=== PATIENT | female | born 1950 | race Caucasian/White ===

== ENCOUNTER 2021-03-16 13:42 | Inpatient (IN) | payer MEDICARE ==
[~2021-03-16] VITALS: Ht 162.6 cm; Wt 141.7 kg
--- NOTE | 2021-03-16 13:51 | PHYS DOC ---
General Adult HPI: HPI: Patient is a 70-year-old female presenting via EMS for need of temporary HD catheter placement. Little is known about patient other than [facility] and in critical condition. Per EMS report, patient has had complicated recent medical history significant for COVID-19 infection 35 days ago, subsequent pneumonia and respiratory failure requiring trach and PEG tube placements, and ongoing septic shock due to pneumonia being treated for meropenem and Zyvox daily with question for cryptococcal source previously being treated by amphotericin? Ultimately, patient transported to our facility for inpatient admission for placement of temporary HD catheter due to worsening kidney function in last few days. She is currently on Levophed and outlying facility could not place temporary HD catheter while on this medication. Patient on Precedex and Levophed drips on arrival. She is awake but not oriented to person place or time which is baseline for her. Review of Systems: Review of Systems: Unable to obtain due to current mentation in fact that patient has trach in place Heart Score: C/O Chest Pain: N/A HEART Score for Chest Pain: HEART Score for Chest Pain Response (Comments) Value History Highly Suspicious 2 ECG Nonspecific Repolarizatio 1 Age > 65 2 Risk Factors >3 Risk Factors or Hx CAD 2 Troponin < Normal Limit 0 Total 7 Risk Factors: Risk Factors: DM, Current or recent (<one month) smoker, HTN, HLP, family histo ry of CAD, obesity. Risk Scores: Score 0 - 3: 2.5% MACE over next 6 weeks - Discharge Home Score 4 - 6: 20.3% MACE over next 6 weeks - Admit for Clinical Observation Score 7 - 10: 72.7% MACE over next 6 weeks - Early Invasive Strategies Physical Exam: PE: Constitutional: Age-appropriate appearing in critical condition, GCS 9 (e4, v2, m5) HENT: Normocephalic, atraumatic, bilateral external ears normal, oropharynx dry, no oral exudates, poor dentition, nose normal. Eyes: PERRLA, EOMI, exotropia of left eye, conjunctiva normal, no discharge. Neck: Normal range of motion, no tenderness, supple, no stridor. Well-appearing trach present and sutured in adequate position Cardiovascular: Heart rate regular, sinus rhythm, no obvious murmurs rubs or gallops Lungs & Thorax: Mechanical breath sounds, increased work of breathing, patient breathing over attached ventilator and hypoxic on 100% FI O2 Abdomen: Bowel sounds normal, soft, no tenderness, no masses, no pulsatile masses. PEG tube present in adequate position and well-appearing, nonsurgical abdomen, no peritoneal signs. Stephens catheter present Skin: Warm, dry, no erythema, no rash. Back: No tenderness, no CVA tenderness. Extremities: No tenderness, no cyanosis, no clubbing, ROM intact, 1+ pitting edema bilateral lower extremities Neurologic: Alert, grossly normal motor & sensory function, no obvious focal deficits noted. Patient unable to follow formal NIH stroke scale Psychologic: Unable to fully assess due to current respiratory distress Current Patient Data: Labs: Laboratory Tests Test 03/16/21 16:11 03/16/21 20:02 03/17/21 06:30 03/17/21 07:10 Urine Collection Type Unknown Urine Color Yellow Urine Clarity Cloudy Urine pH 5.5 Urine Specific [place] 1.020 Urine Protein 100 mg/dL Urine Glucose (UA) Negative mg/dL Urine Ketones (Stick) Negative mg/dL Urine Blood Large Urine Nitrite Negative Urine Bilirubin Negative Urine Urobilinogen Dipstick 0.2 mg/dL Urine Leukocyte Esterase Moderate Urine RBC 11-20 /HPF Urine WBC 20-40 /HPF Urine Squamous Epithelial Cells Few /LPF Urine Renal Epithelial Cells Few /LPF Urine Bacteria Few /HPF Urine Granular Casts Moderate /HPF O2 Saturation 96 % 97 % Arterial Blood pH 7.16 7.18 Arterial Blood pCO2 at Patient Temp 73 mmHg 63 mmHg Arterial Blood pO2 at Patient Temp 109 mmHg 107 mmHg Arterial Blood HCO3 25 mmol/L 23 mmol/L Arterial Blood Base Excess -4 mmol/L -5 mmol/L FiO2 100 100 White Blood Count 17.1 x10^3/uL Red Blood Count 2.51 x10^6/uL Hemoglobin 7.2 g/dL Hematocrit 23.1 % Mean Corpuscular Volume 92 fL Mean Corpuscular Hemoglobin 29 pg Mean Corpuscular Hemoglobin Concent 31 g/dL Red Cell Distribution Width 24.5 % Platelet Count 143 x10^3/uL Neutrophils (%) (Auto) 89 % Lymphocytes (%) (Auto) 7 % Monocytes (%) (Auto) 4 % Eosinophils (%) (Auto) 0 % Basophils (%) (Auto) 0 % Neutrophils # (Auto) 15.1 x10^3/uL Lymphocytes # (Auto) 1.3 x10^3/uL Monocytes # (Auto) 0.7 x10^3/uL Eosinophils # (Auto) 0.0 x10^3/uL Basophils # (Auto) 0.1 x10^3/uL Sodium Level 134 mmol/L Potassium Level 5.3 mmol/L Chloride Level 97 mmol/L Carbon Dioxide Level 24 mmol/L Anion Gap 13 Blood Urea Nitrogen 94 mg/dL Creatinine 2.5 mg/dL Estimated GFR (Cockcroft-Gault) 19.2 Glucose Level 170 mg/dL Calcium Level 8.1 mg/dL Test 03/17/21 12:49 03/17/21 13:35 Glucose (Fingerstick) 192 mg/dL Sodium Level 133 mmol/L Potassium Level 5.0 mmol/L Chloride Level 96 mmol/L Carbon Dioxide Level 25 mmol/L Anion Gap 12 Blood Urea Nitrogen 94 mg/dL Creatinine 2.6 mg/dL Estimated GFR (Cockcroft-Gault) 18.3 Glucose Level 196 mg/dL Calcium Level 7.8 mg/dL Current Medications Medications (Trade) Dose Ordered Sig/[place] Route PRN Reason Start Time Stop Time Status Last Admin Dose Admin Midazolam HCl (Versed) 2 mg STK-MED ONCE .ROUTE 03/16/21 13:52 03/16/21 13:53 DC Dexmedetomidine HCl 400 mcg/ Sodium Chloride 100 ml @ 0 mls/hr CONT PRN IV PER PROTOCOL 03/16/21 14:00 03/17/21 14:19 Sodium Chloride 500 ml @ 500 mls/hr 1X PRN PRN IV SEE COMMENTS 03/16/21 14:00 Atropine Sulfate (ATROPINE 0.5mg SYRINGE) 0.5 mg PRN Q5MIN PRN IV SEE COMMENTS 03/16/21 14:00 Norepinephrine Bitartrate 8 mg/ Dextrose 258 ml @ 27.864 mls/ hr 1X ONCE IV 03/16/21 14:00 03/16/21 23:15 DC 03/16/21 14:13 Midazolam HCl (Versed) 2 mg 1X ONCE IVP 03/16/21 14:00 03/16/21 14:01 DC 03/16/21 13:58 Calcium Gluconate (Calcium Gluconate) 1,000 mg 1X ONCE IVP 03/16/21 14:45 03/16/21 14:46 DC 03/16/21 15:01 Midazolam HCl (Versed) 5 mg 1X ONCE NS 03/16/21 14:45 03/16/21 14:46 DC 03/16/21 14:41 Midazolam HCl 100 ml @ 1 mls/hr CONT PRN IV SEE PROTOCOL 03/16/21 15:00 03/17/21 13:25 Propofol 100 ml @ As Directed STK-MED ONCE IV 03/16/21 14:55 03/16/21 14:55 DC Acetaminophen (Tylenol) 650 mg PRN Q4HRS PRN PO FEVER > 100.3'F 03/16/21 16:30 03/17/21 16:29 Nitroglycerin (Nitrostat) 0.4 mg PRN Q5MIN PRN SL CHEST PAIN 03/16/21 16:30 03/17/21 16:29 Vital Signs: Vital Signs Date Time Temp Pulse Resp B/P (MAP) Pulse Ox O2 Delivery O2 Flow Rate FiO2 03/16/21 13:59 89 Ventilator 03/16/21 14:34 98.6 62 47 140/67 (91) 15.0 98.6 Vital Signs Date Time Temp Pulse Resp B/P (MAP) Pulse Ox O2 Delivery O2 Flow Rate FiO2 03/17/21 15:00 91 20 91/49 85 Ventilator 03/17/21 12:09 15.0 03/17/21 12:00 97.8 97.8 EKG: EKG: EKG ordered and interpreted by myself at 1518 hrs. as sinus rhythm at 61 bpm, unremarkable intervals, left axis deviation, no acute ischemic findings, no STEMI Radiology/Procedures: Radiology/Procedures: Single view of the chest. 03/16/2021 1:58 PM Indication: Reason: SHOB / Spl. Instructions: / History: Comparison: Chest CT March 15, 2021 Findings: Tracheostomy tube in place. Tip is approximately 5.3 cm above the miko. Severe diffuse interstitial and alveolar infiltrates are seen. No pneumothorax is identified. Blebs noted in the bilateral lung apices. No acute osseous changes are seen. IMPRESSION: 1. Severe bilateral interstitial and alveolar infiltrates. Findings consistent with severe Covid 19 pneumonia 2. Tracheostomy tube noted. Electronically signed by: Ezekiel Capone MD (03/16/2021 2:20 PM) [id number] Course & Med Decision Making: Course & Med Decision Making Airway patent via trach, and acute on chronic respiratory distress, vitals obtained concerning for tachypnea and hypoxia with lowest O2 saturation seen 86% on 100% FiO2 2 mg IV Versed administered for sedation, this improved patient's tachypnea in fact that she was overbreathing attached ventilator with immediate improvement in overall respiratory status Patient remained on Precedex and Levophed drips that were present on arrival, hemodynamically stable on these drips Comprehensive work-up obtained. Case reviewed with hospitalist and nursing payroll supervisor who ultimately made contact with daughter who is primary decision maker for family (Adrian Dent [phone]) Daughter requesting transfer to [facility] I contacted [facility] system and case reviewed, and no capacity for hospital transfer given current COVID-19 pandemic I personally contacted daughter and had joint discussion with her and at bedside regarding patient's grave/critical condition in fact that she is in need of temporary HD catheter placement in hospital Decision among all to admit to [facility] for placement of temporary HD catheter with further talks about overall goals of care and direction of treatment deferred to primary care physician and hospitalist team Hospitalist contacted and case reviewed, he accepted patient under his care in ICU setting Critical Care Time This patient required critical care. Due to the fact that the patient required a significant amount of one on one physician - patient contact time, ordering and review of studies, arranging urgent treatment with development of a management plan, evaluation of patients response to treatment with frequent reassessments, and discussions with other providers this patient required 30 minutes of critical care time. Critical care time was indicated due to the inherent instability and/or potential for instability in this patient. The critical care time that is allocated to this patient is above and beyond any time spent on any other billable procedures performed on this patient. Dragon Disclaimer: Dragon Disclaimer: This electronic medical record was generated, in whole or in part, using a voice recognition dictation system. Departure Departure Impression: Primary Impression: Chronic respiratory failure Additional Impressions: PNA (pneumonia) History of COVID-19 CKD (chronic kidney disease) Anemia Disposition: ADMITTED INPATIENT Admitting Physician: RAKESH (DR LOUIS) Condition: STABLE Referrals: LAXMI BARRIOS MD (PCP) HARRIET FONTENOT DO Mar 16, 2021 13:51
[2021-03-16] MEDS ORDERED: MIDAZOLAM HCL/PF 2 MG/2 ML VIAL. ONE (13:52)
[2021-03-16] MEDS ORDERED: MIDAZOLAM HCL/PF 5 MG/5 ML VIAL. IVP ONE (14:00)
[2021-03-16] MEDS ORDERED: ATROPINE 0.5 MG/5 ML DISP.SYRINGE. IV PRN (14:00)
[2021-03-16] MEDS ORDERED: IV NORMAL SALINE 500ML BAG 500 ML IV PRN (14:00)
[2021-03-16] MEDS ORDERED: NOREPINEPHRINE VIAL 8 MG in IV DEXTROSE 5% 250 ML IV ONE (14:00)
[2021-03-16] MEDS: DEXMEDETOMIDINE 400 MCG in IV NORMAL SALINE 100ML 96 ML IV PRN ×5 (14:14→21:48)
--- NOTE | 2021-03-16 14:23 | RAD ---
Single view of the chest. 03/16/2021 1:58 PM Indication: Reason: SHOB / Spl. Instructions: / History: Comparison: Chest CT March 15, 2021 Findings: Tracheostomy tube in place. Tip is approximately 5.3 cm above the miko. Severe diffuse in terstitial and alveolar infiltrates are seen. No pneumothorax is identified. Blebs noted in the bilat eral lung apices. No acute osseous changes are seen. IMPRESSION: 1. Severe bilateral interstitial and alveolar infiltrates. Findings consistent with severe Covid 19 p neumonia 2. Tracheostomy tube noted. Electronically signed by: Ezekiel Capone MD (03/16/2021 2:20 PM) [id number]
[2021-03-16 14:39] LABS: BASO # 0.1 x10^3/uL (0.0-0.2); BASO % 1 % (0-3); EOS % 0 % (0-3); HEMATOCRIT 23.7 % (36.0-47.0); HEMOGLOBIN 7.7 g/dL (12.0-15.5); LYMPH # 0.9 x10^3/uL (1.0-4.8); LYMPH % 5 % (24-48); MEAN CORPUSCULAR HEMOGLOBIN 29 pg (25-35); MEAN CORPUSCULAR HGB CONC 32 g/dL (31-37); MEAN CORPUSCULAR VOLUME 91 fL (79-100); MONO # 0.6 x10^3/uL (0.0-1.1); MONO % 3 % (0-9); NEUT # 16.9 x10^3/uL (1.8-7.7); NEUT % 91 % (31-73); PLATELET COUNT 147 x10^3/uL (140-400); RED BLOOD COUNT 2.62 x10^6/uL (3.50-5.40); RED CELL DISTRIBUTION WIDTH 24.8 % (11.5-14.5); WHITE BLOOD COUNT 18.4 x10^3/uL (4.0-11.0)
[2021-03-16] MEDS ORDERED: MIDAZOLAM HCL/PF 5 MG/5 ML VIAL. NS ONE (14:45)
[2021-03-16] MEDS ORDERED: CALCIUM GLUCONATE 1,000 MG/10 ML VIAL. IVP ONE (14:45)
[2021-03-16] MEDS ORDERED: PROPOFOL 100 ML IV ONE (14:55)
[2021-03-16 15:00] LABS: CALCIUM 7.7 mg/dL (8.5-10.1); CREATININE 2.3 mg/dL (0.6-1.0); GFR 21.1; POTASSIUM 5.3 mmol/L (3.5-5.1)
[2021-03-16 15:06] LABS: ALBUMIN/GLOBULIN RATIO 0.5 (1.0-1.7); MAGNESIUM 2.1 mg/dL (1.8-2.4); PHOSPHORUS 6.7 mg/dL (2.6-4.7); TOTAL BILIRUBIN 0.8 mg/dL (0.2-1.0); TOTAL PROTEIN 5.7 g/dL (6.4-8.2)
[2021-03-16 15:50] LABS: % BANDS 10 % (0-9); % LYMPHS 8 % (24-48); % MONOS 1 % (0-10); % SEGS 81 % (35-66); NUCLEATED RBC 2; PLT ESTIMATE ADEQUATE (ADEQUATE)
[2021-03-16 15:51] LABS: ANISOCYTOSIS MOD; POIKILOCYTOSIS SLIGHT
[2021-03-16 15:52] LABS: OVALOCYTES PRESENT; POLYCHROMASIA SLIGHT; TEAR DROP CELLS OCC
[2021-03-16 16:19] LABS: BILIRUBIN,URINE NEGATIVE (NEG); CLARITY,URINE CLOUDY; COLOR,URINE YELLOW; NITRITE,URINE NEGATIVE (NEG); PH,URINE 5.5 (<5.0-8.0); PROTEIN,URINE 100 mg/dL (NEG-TRACE); UROBILINOGEN,URINE 0.2 mg/dL (0.2 mg/dL)
[2021-03-16 16:26] LABS: WBC,URINE 20-40 /HPF (0-4)
[2021-03-16 16:27] LABS: BACTERIA,URINE FEW /HPF (0-FEW)
[2021-03-16 16:28] LABS: GRANULAR CASTS,URINE MODERATE /HPF
[2021-03-16] MEDS ORDERED: ACETAMINOPHEN 325 MG TABLET. PO PRN (16:30)
[2021-03-16] MEDS ORDERED: NITROGLYCERIN SUBLINGUAL 0.4 MG BOTTLE OF 25. SL PRN (16:30)
--- NOTE | 2021-03-16 16:30 | EKG ---
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
--- NOTE | 2021-03-16 16:53 | PDOC1 ---
History and Physical Date of Admission Date of Admission DATE: 03/16/21 TIME: 16:52 Identification/Chief Complaint Chief Complaint Acute renal failure, multiorgan system failure Source Source: Caregiver, Chart review History of Present Illness History of Present Illness Ms Flores is a 70yo female with PMHx asthma, GERD, HLD, hypothyroidism, chronic pain, JOHAN on CPAP who comes to ED from [facility] for assessment of worsening renal failure. She has been treated at [facility] on a month long vent wean after a complicated COVID-19 hospital stay at [facility] where she underwent tracheostomy and PEG placement in December 2020. As of ~03/06/2021 last week per patient had been weaning down vent support PEEP of 5 and 55 to 60% FiO2. Because of her failure to progress she underwent bronchoscopy which, per physician at [facility] was positive for crypt ococcus and patient was started on amphotericin B flucytosine Zosyn and Zyvox. This past Tuesday 03/13 some time around or after 7:00 AM patient had a significant worsening of her oxygen status and per since then she has been relatively unresponsive. Progressively increased ventilatory support and pressor support with Levophed and progressively worsening multiorgan system f ailure with elevated creatinine has been transferred out of [facility] for assessment for renal failure consideration of renal replacement therapy WBC 18.4, Hb 7.7, platelets 147, INR 1.4, NA 133, K5.3, chloride 96, HCO3 27, BUN 82, CR 2.3, glucose 241 calcium 7.7, phosphorus 6.7, lactate 0.8 magnesium 2.1 bilirubin 0.8, AST 25 ALT 37, alkaline phosphatase 81, albumin 2, NT proBNP 7349, urinalysis with moderate leuk esterase large blood WBCs and RBCs as well as granular casts Chest radiograph with severe diffuse interstitial alveolar infiltrates and tracheostomy tube in place Vent AC mode 20/550/14/100% with saturations 94%. EKG sinus rhythm at 61 bpm, unremarkable intervals, left axis deviation, no acute ischemic findings, no ST elevation or TWI Discussed with Vitaliy bedside in ED. ED attempt transfer to [facility] no available beds Admitted to ICU on levophed GTT. Past Medical History Cardiovascular: Hyperlipidemia Pulmonary: Asthma Past Surgical History Past Surgical History R ROTATOR CUFF, L carpal tunnel, L TOTAL KNEE, Past Surgical History: Total knee replacement (left) Family History Family History: High Cholestrol Social History Smoke: No ALCOHOL: none Drugs: None Current Problem List Problem List Problems Medical Problems: (1) Anemia Status: Acute (2) Chronic respiratory failure Status: Acute (3) CKD (chronic kidney disease) Status: Acute (4) History of COVID-19 Status: Acute (5) PNA (pneumonia) Status: Acute Current Medications Current Medications Current Medications Midazolam HCl (Versed) 2 mg STK-MED ONCE .ROUTE ; Start 03/16/21 at 13:52; Stop 03/16/21 at 13:53; Status DC Dexmedetomidine HCl 400 mcg/ Sodium Chloride 100 ml @ 7.2 mls/hr CONT PRN IV PER PROTOCOL Last administered on 03/16/21at 15:02; Start 03/16/21 at 14:00 Sodium Chloride 500 ml @ 500 mls/hr 1X PRN PRN IV SEE COMMENTS; Start at 14:00 Atropine Sulfate (ATROPINE 0.5mg SYRINGE) 0.5 mg PRN Q5MIN PRN IV SEE COMMENTS; Start 03/16/21 at 14:00 Norepinephrine Bitartrate 8 mg/ Dextrose 258 ml @ 27.864 mls/ hr 1X ONCE IV Last administered on 03/16/21at 14:13; Start 03/16/21 at 14:00; Stop 03/16/21 at 23:15 Midazolam HCl (Versed) 2 mg 1X ONCE IVP Last administered on 03/16/21at 13:58; Start 03/16/21 at 14:00; Stop 03/16/21 at 14:01; Status DC Calcium Gluconate (Calcium Gluconate) 1,000 mg 1X ONCE IVP Last administered on 03/16/21at 15:01; Start 03/16/21 at 14:45; Stop 03/16/21 at 14:46; Status DC Midazolam HCl (Versed) 5 mg 1X ONCE NS Last administered on 03/16/21at 14:41; Start 03/16/21 at 14:45; Stop 03/16/21 at 14:46; Status DC Midazolam HCl 100 ml @ 1 mls/hr CONT PRN IV SEE PROTOCOL; Start 03/16/21 at 15:00 Propofol 100 ml @ As Directed STK-MED ONCE IV ; Start 03/16/21 at 14:55; Stop 03/16/21 at 14:55; Status DC Acetaminophen (Tylenol) 650 mg PRN Q4HRS PRN PO FEVER > 100.3'F; Start 03/16/21 at 16:30; Stop 03/17/21 at 16:29 Nitroglycerin (Nitrostat) 0.4 mg PRN Q5MIN PRN SL CHEST PAIN; Start 03/16/21 at 16:30; Stop 03/17/21 at 16:29 Allergies Allergies: Coded Allergies: Antihistamines - Ethylenediamine (Verified Allergy, Intermediate, 03/16/21) aspirin (Verified Allergy, Intermediate, 03/16/21) fluconazole (Verified Allergy, Intermediate, 03/16/21) salmeterol (Verified Allergy, Intermediate, 03/16/21) ROS Review of System Unable to obtain, patient not responsive on ventilator Physical Exam General: moderate distress HEENT: Mucous membr. moist/pink, Other (trach site clean dry, intact, pupils pinpoint slow to respond) Lungs: Other (Coarse rhonchi bilateral, ventilatory breath sounds) Heart: S1S2, RRR Abdomen: Normal bowel sounds, Other (PEG clean) Extremities: No clubbing, No cyanosis Psych/Mental Status: Other Vitals Vitals Vital Signs Date Time Temp Pulse Resp B/P (MAP) Pulse Ox O2 Delivery O2 Flow Rate FiO2 03/16/21 15:45 56 45 140/75 (96) 95 Ventilator 15.0 03/16/21 14:34 98.6 98.6 Labs Labs Laboratory Tests Test 03/16/21 14:21 03/16/21 16:11 White Blood Count 18.4 x10^3/uL (4.0-11.0) Red Blood Count 2.62 x10^6/uL (3.50-5.40) Hemoglobin 7.7 g/dL (12.0-15.5) Hematocrit 23.7 % (36.0-47.0) Mean Corpuscular Volume 91 fL (79-100) Mean Corpuscular Hemoglobin 29 pg (25-35) Mean Corpuscular Hemoglobin Concent 32 g/dL (31-37) Red Cell Distribution Width 24.8 % (11.5-14.5) Platelet Count 147 x10^3/uL (140-400) Neutrophils (%) (Auto) 91 % (31-73) Lymphocytes (%) (Auto) 5 % (24-48) Monocytes (%) (Auto) 3 % (0-9) Eosinophils (%) (Auto) 0 % (0-3) Basophils (%) (Auto) 1 % (0-3) Neutrophils # (Auto) 16.9 x10^3/uL (1.8-7.7) Lymphocytes # (Auto) 0.9 x10^3/uL (1.0-4.8) Monocytes # (Auto) 0.6 x10^3/uL (0.0-1.1) Eosinophils # (Auto) 0.0 x10^3/uL (0.0-0.7) Basophils # (Auto) 0.1 x10^3/uL (0.0-0.2) Segmented Neutrophils % 81 % (35-66) Band Neutrophils % 10 % (0-9) Lymphocytes % 8 % (24-48) Monocytes % 1 % (0-10) Nucleated Red Blood Cells 2 Platelet Estimate Adequate (ADEQUATE) Polychromasia Slight Poikilocytosis Slight Basophilic Stippling Present Anisocytosis Mod Tear Drop Cells Occ Ovalocytes Present Prothrombin Time 17.0 SEC (11.7-14.0) Prothromb Time International Ratio 1.4 (0.8-1.1) Activated Partial Thromboplast Time 30 SEC (24-38) Sodium Level 133 mmol/L (136-145) Potassium Level 5.3 mmol/L (3.5-5.1) Chloride Level 96 mmol/L (98-107) Carbon Dioxide Level 27 mmol/L (21-32) Anion Gap 10 (6-14) Blood Urea Nitrogen 82 mg/dL (7-20) Creatinine 2.3 mg/dL (0.6-1.0) Estimated GFR (Cockcroft-Gault) 21.1 BUN/Creatinine Ratio 36 (6-20) Glucose Level 241 mg/dL (70-99) Lactic Acid Level 0.8 mmol/L (0.4-2.0) Calcium Level 7.7 mg/dL (8.5-10.1) Phosphorus Level 6.7 mg/dL (2.6-4.7) Magnesium Level 2.1 mg/dL (1.8-2.4) Total Bilirubin 0.8 mg/dL (0.2-1.0) Aspartate Amino Transf (AST/SGOT) 25 U/L (15-37) Alanine Aminotransferase (ALT/SGPT) 37 U/L (14-59) Alkaline Phosphatase 81 U/L (46-116) WF-Psh-F-Type Natriuretic Peptide 7349 pg/mL (0-124) Total Protein 5.7 g/dL (6.4-8.2) Albumin 2.0 g/dL (3.4-5.0) Albumin/Globulin Ratio 0.5 (1.0-1.7) Urine Collection Type Unknown Urine Color Yellow Urine Clarity Cloudy Urine pH 5.5 (<5.0-8.0) Urine Specific [place] 1.020 (1.000-1.030) Urine Protein 100 mg/dL (NEG-TRACE) Urine Glucose (UA) Negative mg/dL (NEG) Urine Ketones (Stick) Negative mg/dL (NEG) Urine Blood Large (NEG) Urine Nitrite Negative (NEG) Urine Bilirubin Negative (NEG) Urine Urobilinogen Dipstick 0.2 mg/dL (0.2 mg/dL) Urine Leukocyte Esterase Moderate (NEG) Urine RBC 11-20 /HPF (0-2) Urine WBC 20-40 /HPF (0-4) Urine Squamous Epithelial Cells Few /LPF Urine Renal Epithelial Cells Few /LPF Urine Bacteria Few /HPF (0-FEW) Urine Granular Casts Moderate /HPF Laboratory Tests Test 03/16/21 14:21 03/16/21 16:11 White Blood Count 18.4 x10^3/uL (4.0-11.0) Red Blood Count 2.62 x10^6/uL (3.50-5.40) Hemoglobin 7.7 g/dL (12.0-15.5) Hematocrit 23.7 % (36.0-47.0) Mean Corpuscular Volume 91 fL (79-100) Mean Corpuscular Hemoglobin 29 pg (25-35) Mean Corpuscular Hemoglobin Concent 32 g/dL (31-37) Red Cell Distribution Width 24.8 % (11.5-14.5) Platelet Count 147 x10^3/uL (140-400) Neutrophils (%) (Auto) 91 % (31-73) Lymphocytes (%) (Auto) 5 % (24-48) Monocytes (%) (Auto) 3 % (0-9) Eosinophils (%) (Auto) 0 % (0-3) Basophils (%) (Auto) 1 % (0-3) Neutrophils # (Auto) 16.9 x10^3/uL (1.8-7.7) Lymphocytes # (Auto) 0.9 x10^3/uL (1.0-4.8) Monocytes # (Auto) 0.6 x10^3/uL (0.0-1.1) Eosinophils # (Auto) 0.0 x10^3/uL (0.0-0.7) Basophils # (Auto) 0.1 x10^3/uL (0.0-0.2) Segmented Neutrophils % 81 % (35-66) Band Neutrophils % 10 % (0-9) Lymphocytes % 8 % (24-48) Monocytes % 1 % (0-10) Nucleated Red Blood Cells 2 Platelet Estimate Adequate (ADEQUATE) Polychromasia Slight Poikilocytosis Slight Basophilic Stippling Present Anisocytosis Mod Tear Drop Cells Occ Ovalocytes Present Prothrombin Time 17.0 SEC (11.7-14.0) Prothromb Time International Ratio 1.4 (0.8-1.1) Activated Partial Thromboplast Time 30 SEC (24-38) Sodium Level 133 mmol/L (136-145) Potassium Level 5.3 mmol/L (3.5-5.1) Chloride Level 96 mmol/L (98-107) Carbon Dioxide Level 27 mmol/L (21-32) Anion Gap 10 (6-14) Blood Urea Nitrogen 82 mg/dL (7-20) Creatinine 2.3 mg/dL (0.6-1.0) Estimated GFR (Cockcroft-Gault) 21.1 BUN/Creatinine Ratio 36 (6-20) Glucose Level 241 mg/dL (70-99) Lactic Acid Level 0.8 mmol/L (0.4-2.0) Calcium Level 7.7 mg/dL (8.5-10.1) Phosphorus Level 6.7 mg/dL (2.6-4.7) Magnesium Level 2.1 mg/dL (1.8-2.4) Total Bilirubin 0.8 mg/dL (0.2-1.0) Aspartate Amino Transf (AST/SGOT) 25 U/L (15-37) Alanine Aminotransferase (ALT/SGPT) 37 U/L (14-59) Alkaline Phosphatase 81 U/L (46-116) FF-Moa-Q-Type Natriuretic Peptide 7349 pg/mL (0-124) Total Protein 5.7 g/dL (6.4-8.2) Albumin 2.0 g/dL (3.4-5.0) Albumin/Globulin Ratio 0.5 (1.0-1.7) Urine Collection Type Unknown Urine Color Yellow Urine Clarity Cloudy Urine pH 5.5 (<5.0-8.0) Urine Specific [place] 1.020 (1.000-1.030) Urine Protein 100 mg/dL (NEG-TRACE) Urine Glucose (UA) Negative mg/dL (NEG) Urine Ketones (Stick) Negative mg/dL (NEG) Urine Blood Large (NEG) Urine Nitrite Negative (NEG) Urine Bilirubin Negative (NEG) Urine Urobilinogen Dipstick 0.2 mg/dL (0.2 mg/dL) Urine Leukocyte Esterase Moderate (NEG) Urine RBC 11-20 /HPF (0-2) Urine WBC 20-40 /HPF (0-4) Urine Squamous Epithelial Cells Few /LPF Urine Renal Epithelial Cells Few /LPF Urine Bacteria Few /HPF (0-FEW) Urine Granular Casts Moderate /HPF Images Images Chest radiograph: Tracheostomy tube in place. Tip is approximately 5.3 cm above the miko. Severe diffuse interstitial and alveolar infiltrates are seen. No pneumothorax is i dentified. Blebs noted in the bilateral lung apices. No acute osseous changes are seen. IMPRESSION: 1. Severe bilateral interstitial and alveolar infiltrates. Findings consistent with severe Covid 19 pneumonia 2. Tracheostomy tube noted. VTE Prophylaxis Ordered VTE Prophylaxis Devices: No VTE Pharmacological Prophylaxi: Yes Assessment/Plan Assessment/Plan A/P: Acute on chronic combined hypoxic and hypercapnic respiratory failure - long difficult vent wean after COVID 19 with current cryptoccocal infection. Wean vent as tolerated. Consult pulm for assistance. Vent AC mode 20/550/14/100% with saturations 94%. Acute encephalopathy - likely hypoxic encephalopathy vs uremic and septic encephalopathy. Monitor mental status, wean sedation as tolerated. She has been on precedex for over a month Acute renal failure - multifactorial vasomotor nephropathy from sepsis, multiorgan system failure, hypoxia and possible ATN/AIN from nephrotoxic medications necessary for cryptococcal infection treatment. Consult nephrology Septic shock - due to above infection. 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 Discussed with Vitaliy overall poor prognosis bedside in ED and escorted bedside to ICU. 72 minutes spent on cc time Justifications for Admission Other Justification REBECA DUMONT MD Mar 16, 2021 16:53
[2021-03-16] MEDS ORDERED: VECURONIUM BOLUS 10 MG VIAL. IV ONE (18:00)
[2021-03-16] MEDS ORDERED: [UNRECOGNIZED DRUG - CODE] IV (18:43)
[2021-03-16] MEDS ORDERED: POLY17PO29 PO (18:43)
[2021-03-16] MEDS ORDERED: METO25TA4 PO (18:43)
[2021-03-16] MEDS ORDERED: AMIO400T5 PO (18:43)
[2021-03-16] MEDS ORDERED: FERR325T14 PO (18:43)
[2021-03-16] MEDS ORDERED: INSU100V6 SQ (18:43)
[2021-03-16] MEDS ORDERED: INSU100I13 SQ (18:43)
[2021-03-16] MEDS ORDERED: AMPHOTERICIN IV (18:43)
[2021-03-16] MEDS ORDERED: APIX5TAB PO (18:43)
[2021-03-16] MEDS ORDERED: METH40VI IV (18:43)
[2021-03-16] MEDS ORDERED: PANT40GR PO (18:43)
[2021-03-16] MEDS ORDERED: PIPE3.377 IV (18:43)
[2021-03-16] MEDS ORDERED: NORE8PLA12 IV (18:43)
[2021-03-16] MEDS ORDERED: INSU100C SQ (18:43)
[2021-03-16] MEDS ORDERED: DILT60TA PO (18:43)
[2021-03-16] MEDS ORDERED: IPRA3AMP29 NEB (18:43)
--- NOTE | 2021-03-16 18:44 | NUR ---
Dr. Li called unit and gave the order to discontinue Flucytosine upon arrival to the unit. Updated list of medications placed in the computer, did not include Flucytosine.
[2021-03-16 19:00] VITALS: BP 100/54
--- NOTE | 2021-03-16 19:22 | NUR ---
1800: Patient transferred to ICU with family at bedside. Patient is hypotensive, arrived on 0.03 of Levophed. Patient has tracheostomy and is sedated on ventilator. Upon arrival, patient noncompliant with ventilator, Fentanyl drip started and administered one time dose of Vecuronium. Current ventilator settings are AC 20/550/14/100%. Patient now tolerating ventilator. Home meds entered in computer for restart.
--- NOTE | 2021-03-16 19:30 | NUR ---
Dr. Li called about restarting Zosyn since patient was on it at [facility]. Orders received to discontinue Zosyn, but start Linezolid 600 mg IV Q12H, Micafungin 100 mg daily, and Meropenem 500 mg IV (either Q6 or Q8--call pharmacy to ask). Order also received o discontinue Flucytosine if it had been restarted from her medication list. Pharmacy notified of order, pharmacist stated she would add the order based off of renal lab values.
[2021-03-16 20:00] VITALS: BP 101/50
[2021-03-16] MEDS: MEROPENEM 500 MG in IV NORMAL SALINE 50ML 50 ML IV SCH (20:35)
[2021-03-16 21:00] VITALS: BP 100/51
--- NOTE | 2021-03-16 21:07 | NUR ---
ABG was ordered since patient had not had an ABG since arriving and being placed on higher vent settings. ABG critical--Dr. Sheldon notified of ABG results and current vent settings. Orders received to increase TV to 600 and rate to 30 and get ABG in AM. RT came down and adjusted vent settings, peak pressures increased to 70s. Dr. Sheldon notified of attempt to change vent settings and orders received to keep her on the original vent settings (rate of 20 and 550 TV) and check again tomorrow since dialysis should help patient. Will continue to monitors resp status closely overnight.
[2021-03-16 21:14] LABS: BASE EXCESS ABG -4 mmol/L (-3-3); HCO3 ABG 25 mmol/L (21-28); PCO2 ABG 73 mmHg (35-46); PO2 ABG 109 mmHg (65-108); SAT O2 ABG 96 % (92-99)
[2021-03-16 21:15] LABS: FIO2 ABG 100
[2021-03-16 22:00] VITALS: BP 103/52
[2021-03-16 23:00] VITALS: BP 90/48
[2021-03-16] MEDS ORDERED: C.DIFF MED SCREEN BY RX. MC ONE (23:45)
[2021-03-16] MEDS: MICAFUNGIN 100 MG in IV DEXTROSE 5% 100ML 100 ML IV SCH (23:49)
[2021-03-17] VITALS (31 sets, daily range): BP systolic 79–129; BP diastolic 42–64
[2021-03-17] MEDS: DEXMEDETOMIDINE 400 MCG in IV NORMAL SALINE 100ML 96 ML IV PRN ×10 (00:31→23:25)
[2021-03-17] MEDS: MIDAZOLAM 100mg/100ml NS BAG 100 ML IV PRN ×2 (01:54→13:25)
[2021-03-17] MEDS ORDERED: DEXTROSE 50% 25 GM / 50ML DISP.SYRIN. IV PRN (02:45)
[2021-03-17] MEDS: MEROPENEM 500 MG in IV NORMAL SALINE 50ML 50 ML IV SCH ×3 (04:12→23:16)
[2021-03-17] MEDS: INSULIN LISPRO 300 UNITS/3 ML VIAL. SQ SCH ×4 (06:00→23:46)
[2021-03-17] MEDS: HEPARIN for SUB-Q USE 5,000 UNIT/ML VIAL. SQ SCH ×3 (06:15→23:15)
[2021-03-17 06:42] LABS: BASO # 0.1 x10^3/uL (0.0-0.2); BASO % 0 % (0-3); EOS % 0 % (0-3); HEMATOCRIT 23.1 % (36.0-47.0); HEMOGLOBIN 7.2 g/dL (12.0-15.5); LYMPH # 1.3 x10^3/uL (1.0-4.8); LYMPH % 7 % (24-48); MEAN CORPUSCULAR HEMOGLOBIN 29 pg (25-35); MEAN CORPUSCULAR HGB CONC 31 g/dL (31-37); MEAN CORPUSCULAR VOLUME 92 fL (79-100); MONO # 0.7 x10^3/uL (0.0-1.1); MONO % 4 % (0-9); NEUT # 15.1 x10^3/uL (1.8-7.7); NEUT % 89 % (31-73); PLATELET COUNT 143 x10^3/uL (140-400); RED BLOOD COUNT 2.51 x10^6/uL (3.50-5.40); RED CELL DISTRIBUTION WIDTH 24.5 % (11.5-14.5); WHITE BLOOD COUNT 17.1 x10^3/uL (4.0-11.0)
--- NOTE | 2021-03-17 06:49 | PDOC ---
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 Wean vent as tolerated. Consult pulm for assistance. Vent AC mode 20/550/14/100% with saturations 94%. Acute encephalopathy - likely hypoxic encephalopathy vs uremic and septic encephalopathy. Monitor mental status, wean sedation as tolerated. She has been on precedex for over a month Acute renal failure - multifactorial vasomotor nephropathy from sepsis, multiorgan system failure, hypoxia and possible ATN/AIN from nephrotoxic me dications necessary for cryptococcal infection treatment. Consult nephrology Septic shock - due to above infection. 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 (Vitaliy) is surrogate decision-maker. History of Present Illness History of Present Illness Ms Flores is a 70yo female with PMHx asthma, GERD, HLD, hypothyroidism, chronic pain, JOHAN on CPAP who comes to ED from [facility] for assessment of worsening renal failure. She has been treated at [facility] on a month long vent wean after a complicated COVID-19 hospital stay at [facility] where she underwent tracheostomy and PEG placement in December 2020. As of ~03/06/2021 last week per patient had been weaning down vent support PEEP of 5 and 55 to 60% FiO2. Because of her failure to progress she underwent bronchoscopy which, per physician at [facility] was positive for cryptococcus and patient was started on amphotericin B flucytosine Zosyn and Zyvox. This past Tuesday 03/13 some time around or after 7:00 AM patient had a significant worsening of her oxygen status and per since then she has been relatively unresponsive. Progressively increased ventilatory support and pressor support with Levophed and progressively worsening multiorgan system failure with elevated creatinine has been transferred out of [facility] for as sessment for renal failure consideration of renal replacement therapy WBC 18.4, Hb 7.7, platelets 147, INR 1.4, NA 133, K5.3, chloride 96, HCO3 27, BUN 82, CR 2.3, glucose 241 calcium 7.7, phosphorus 6.7, lactate 0.8 magnesium 2.1 bilirubin 0.8, AST 25 ALT 37, alkaline phosphatase 81, albumin 2, NT proBNP 7349, urinalysis with moderate leuk esterase large blood WBCs and RBCs as well as granular casts Chest radiograph with severe diffuse interstitial alveolar infiltrates and tracheostomy tube in place Vent AC mode 20/550/14/100% with saturations 94%. EKG sinus rhythm at 61 bpm, unremarkable intervals, left axis deviation, no acute ischemic findings, no ST elevation or TWI Discussed with , Vitaliy bedside in ED. ED attempt transfer to [facility] no available beds Admitted to ICU on levophed GTT. 03/17: Afebrile, on vent with FiO2 100%, PEEP 14. Will follow nephrology rec ommendations. Continue fluconazole at this time; further antibiotics/antifungals, per ID. No need for urgent dialysis at this time, potassium 5.0. Continue treatment for cryptococcus pneumonia. refusing lumbar puncture. Vitals/I&O Vitals/I&O: Vital Signs Date Time Temp Pulse Resp B/P (MAP) Pulse Ox O2 Delivery O2 Flow Rate FiO2 03/17/21 05:37 100 Ventilator 03/17/21 05:00 62 20 109/54 03/17/21 04:00 96.6 96.6 03/16/21 18:08 15.0 I & O 03/16/21 03/16/21 03/17/21 15:00 23:00 07:00 Intake Total 350 ml 1116 ml Output Total 60 ml 140 ml Balance 290 ml 976 ml Physical Exam General: mild distress, moderate distress, Other (Intubated and sedated) Heart: Regular rate Lungs: Crackles Abdomen: Normal bowel sounds, Other (PEG clean) Extremities: No clubbing, No cyanosis Skin: No significant lesion Labs Labs: Laboratory Tests Test 03/16/21 14:21 03/16/21 16:11 03/16/21 20:02 White Blood Count 18.4 x10^3/uL (4.0-11.0) Red Blood Count 2.62 x10^6/uL (3.50-5.40) Hemoglobin 7.7 g/dL (12.0-15.5) Hematocrit 23.7 % (36.0-47.0) Mean Corpuscular Volume 91 fL (79-100) Mean Corpuscular Hemoglobin 29 pg (25-35) Mean Corpuscular Hemoglobin Concent 32 g/dL (31-37) Red Cell Distribution Width 24.8 % (11.5-14.5) Platelet Count 147 x10^3/uL (140-400) Neutrophils (%) (Auto) 91 % (31-73) Lymphocytes (%) (Auto) 5 % (24-48) Monocytes (%) (Auto) 3 % (0-9) Eosinophils (%) (Auto) 0 % (0-3) Basophils (%) (Auto) 1 % (0-3) Neutrophils # (Auto) 16.9 x10^3/uL (1.8-7.7) Lymphocytes # (Auto) 0.9 x10^3/uL (1.0-4.8) Monocytes # (Auto) 0.6 x10^3/uL (0.0-1.1) Eosinophils # (Auto) 0.0 x10^3/uL (0.0-0.7) Basophils # (Auto) 0.1 x10^3/uL (0.0-0.2) Segmented Neutrophils % 81 % (35-66) Band Neutrophils % 10 % (0-9) Lymphocytes % 8 % (24-48) Monocytes % 1 % (0-10) Nucleated Red Blood Cells 2 Platelet Estimate Adequate (ADEQUATE) Polychromasia Slight Poikilocytosis Slight Basophilic Stippling Present Anisocytosis Mod Tear Drop Cells Occ Ovalocytes Present Prothrombin Time 17.0 SEC (11.7-14.0) Prothromb Time International Ratio 1.4 (0.8-1.1) Activated Partial Thromboplast Time 30 SEC (24-38) Sodium Level 133 mmol/L (136-145) Potassium Level 5.3 mmol/L (3.5-5.1) Chloride Level 96 mmol/L (98-107) Carbon Dioxide Level 27 mmol/L (21-32) Anion Gap 10 (6-14) Blood Urea Nitrogen 82 mg/dL (7-20) Creatinine 2.3 mg/dL (0.6-1.0) Estimated GFR (Cockcroft-Gault) 21.1 BUN/Creatinine Ratio 36 (6-20) Glucose Level 241 mg/dL (70-99) Lactic Acid Level 0.8 mmol/L (0.4-2.0) Calcium Level 7.7 mg/dL (8.5-10.1) Phosphorus Level 6.7 mg/dL (2.6-4.7) Magnesium Level 2.1 mg/dL (1.8-2.4) Total Bilirubin 0.8 mg/dL (0.2-1.0) Aspartate Amino Transf (AST/SGOT) 25 U/L (15-37) Alanine Aminotransferase (ALT/SGPT) 37 U/L (14-59) Alkaline Phosphatase 81 U/L (46-116) MH-Ncs-Q-Type Natriuretic Peptide 7349 pg/mL (0-124) Total Protein 5.7 g/dL (6.4-8.2) Albumin 2.0 g/dL (3.4-5.0) Albumin/Globulin Ratio 0.5 (1.0-1.7) Urine Collection Type Unknown Urine Color Yellow Urine Clarity Cloudy Urine pH 5.5 (<5.0-8.0) Urine Specific [place] 1.020 (1.000-1.030) Urine Protein 100 mg/dL (NEG-TRACE) Urine Glucose (UA) Negative mg/dL (NEG) Urine Ketones (Stick) Negative mg/dL (NEG) Urine Blood Large (NEG) Urine Nitrite Negative (NEG) Urine Bilirubin Negative (NEG) Urine Urobilinogen Dipstick 0.2 mg/dL (0.2 mg/dL) Urine Leukocyte Esterase Moderate (NEG) Urine RBC 11-20 /HPF (0-2) Urine WBC 20-40 /HPF (0-4) Urine Squamous Epithelial Cells Few /LPF Urine Renal Epithelial Cells Few /LPF Urine Bacteria Few /HPF (0-FEW) Urine Granular Casts Moderate /HPF O2 Saturation 96 % (92-99) Arterial Blood pH 7.16 (7.35-7.45) Arterial Blood pCO2 at Patient Temp 73 mmHg (35-46) Arterial Blood pO2 at Patient Temp 109 mmHg (65-108) Arterial Blood HCO3 25 mmol/L (21-28) Arterial Blood Base Excess -4 mmol/L (-3-3) FiO2 100 Assessment and Plan Assessmemt and Plan Problems Medical Problems: (1) Anemia Status: Acute (2) Chronic respiratory failure Status: Acute (3) CKD (chronic kidney disease) Status: Acute (4) History of COVID-19 Status: Acute (5) PNA (pneumonia) Status: Acute Comment Review of Relevant I have reviewed the following items candice (where applicable) has been applied. Medications: Current Medications Medications (Trade) Dose Ordered Sig/Franklin Route PRN Reason Start Time Stop Time Status Last Admin Dose Admin Dexmedetomidine HCl 400 mcg/ Sodium Chloride 100 ml @ 7.2 mls/hr CONT PRN IV PER PROTOCOL 03/16/21 14:00 03/17/21 06:02 Norepinephrine Bitartrate 8 mg/ Dextrose 258 ml @ 27.864 mls/ hr 1X ONCE IV 03/16/21 14:00 03/16/21 23:15 DC 03/16/21 14:13 Midazolam HCl (Versed) 2 mg 1X ONCE IVP 03/16/21 14:00 03/16/21 14:01 DC 03/16/21 13:58 Calcium Gluconate (Calcium Gluconate) 1,000 mg 1X ONCE IVP 03/16/21 14:45 03/16/21 14:46 DC 03/16/21 15:01 Midazolam HCl (Versed) 5 mg 1X ONCE NS 03/16/21 14:45 03/16/21 14:46 DC 03/16/21 14:41 Midazolam HCl 100 ml @ 1 mls/hr CONT PRN IV SEE PROTOCOL 03/16/21 15:00 03/17/21 01:54 Fentanyl Citrate 30 ml @ 0 mls/hr CONT PRN IV SEE PROTOCOL 03/16/21 18:00 03/17/21 03:54 Vecuronium Preston (Norcuron Bolus) 10 mg 1X ONCE IV 03/16/21 18:00 03/16/21 18:01 DC 03/16/21 18:06 Meropenem 500 mg/ Sodium Chloride 50 ml @ 100 mls/hr Q8H IV 03/16/21 20:00 03/17/21 04:30 DC 03/17/21 04:12 Linezolid/Dextrose 300 ml @ 300 mls/hr Q12HR IV 03/16/21 21:00 03/16/21 21:50 Micafungin Sodium 100 mg/Dextrose 100 ml @ 100 mls/hr Q24H IV 03/16/21 22:00 03/16/21 23:49 Heparin Sodium (Porcine) (Heparin Sodium) 5,000 unit Q8HRS SQ 03/17/21 06:00 03/17/21 06:15 Justifications for Admission Other Justification BISI GILLESPIE MD Mar 17, 2021 06:49
[2021-03-17 07:24] LABS: CALCIUM 8.1 mg/dL (8.5-10.1); CREATININE 2.5 mg/dL (0.6-1.0); GFR 19.2; POTASSIUM 5.3 mmol/L (3.5-5.1)
[2021-03-17 07:28] LABS: BASE EXCESS ABG -5 mmol/L (-3-3); HCO3 ABG 23 mmol/L (21-28); PO2 ABG 107 mmHg (65-108); SAT O2 ABG 97 % (92-99)
[2021-03-17] MEDS ORDERED: PANTOPRAZOLE 40 MG TABLET.DR. PO SCH (07:30)
--- NOTE | 2021-03-17 07:31 | NUR ---
Pharmacy Medication Review S: Consulted for medication review re: C.diff Risk Assessment score of 7 O: HOLLEY VILLATORO is a 70 year old with: Previous C.diff infection: No Previous hospitalization: Within 30 days Recent antibiotics: Within 30 days Use of gastric acid suppressor: Yes Transfer from ID/LTAC: Yes Current antibiotic regimen: merrem 500 mg q8hr, zyvox 600 mg q12hr, micafungin 100 mg q24hr Current acid suppression regimen: lansoprazole 30 mg PEG daily A: Patient has been identified as having risk factors for C.diff infection as noted above. P: Antibiotic Regimen recommendation made: n - active infection Probiotic ordered: n - intubated PPI changed to [id number]: n - h/o GERD LUNA IRIZARRY RPH, 03/17/21 0731
[2021-03-17 07:32] LABS: FIO2 ABG 100; PCO2 ABG 63 mmHg (35-46)
[2021-03-17] MEDS: METOPROLOL TART IMMED RELEASE 25 MG TABLET. PO SCH ×2 (09:00→21:00)
[2021-03-17] MEDS: AMIODARONE HCL 200 MG TABLET. PO SCH (09:34)
[2021-03-17] MEDS: POLYETHYLENE GLYCOL 3350 17 GM PACKET. PO SCH (09:35)
[2021-03-17] MEDS: LANSOPRAZOLE 30 MG TAB.RAP.DR PEG SCH (09:57)
[2021-03-17] MEDS: NOREPINEPHRINE VIAL 8 MG in IV DEXTROSE 5% 250 ML IV PRN ×2 (09:58→15:22)
--- NOTE | 2021-03-17 10:01 | PDOC ---
PULMONARY PROGRESS NOTES DATE: 03/17/21 TIME: 10:00 Vitals Vital Signs Date Time Temp Pulse Resp B/P (MAP) Pulse Ox O2 Delivery O2 Flow Rate FiO2 03/17/21 09:34 72 127/49 03/17/21 09:10 100 Ventilator 03/17/21 06:00 20 03/17/21 04:00 96.6 96.6 03/16/21 18:08 15.0 Lungs: Crackles Labs Laboratory Tests Test 03/16/21 14:21 03/16/21 16:11 03/16/21 20:02 03/17/21 06:30 White Blood Count 18.4 x10^3/uL (4.0-11.0) 17.1 x10^3/uL (4.0-11.0) Red Blood Count 2.62 x10^6/uL (3.50-5.40) 2.51 x10^6/uL (3.50-5.40) Hemoglobin 7.7 g/dL (12.0-15.5) 7.2 g/dL (12.0-15.5) Hematocrit 23.7 % (36.0-47.0) 23.1 % (36.0-47.0) Mean Corpuscular Volume 91 fL (79-100) 92 fL (79-100) Mean Corpuscular Hemoglobin 29 pg (25-35) 29 pg (25-35) Mean Corpuscular Hemoglobin Concent 32 g/dL (31-37) 31 g/dL (31-37) Red Cell Distribution Width 24.8 % (11.5-14.5) 24.5 % (11.5-14.5) Platelet Count 147 x10^3/uL (140-400) 143 x10^3/uL (140-400) Neutrophils (%) (Auto) 91 % (31-73) 89 % (31-73) Lymphocytes (%) (Auto) 5 % (24-48) 7 % (24-48) Monocytes (%) (Auto) 3 % (0-9) 4 % (0-9) Eosinophils (%) (Auto) 0 % (0-3) 0 % (0-3) Basophils (%) (Auto) 1 % (0-3) 0 % (0-3) Neutrophils # (Auto) 16.9 x10^3/uL (1.8-7.7) 15.1 x10^3/uL (1.8-7.7) Lymphocytes # (Auto) 0.9 x10^3/uL (1.0-4.8) 1.3 x10^3/uL (1.0-4.8) Monocytes # (Auto) 0.6 x10^3/uL (0.0-1.1) 0.7 x10^3/uL (0.0-1.1) Eosinophils # (Auto) 0.0 x10^3/uL (0.0-0.7) 0.0 x10^3/uL (0.0-0.7) Basophils # (Auto) 0.1 x10^3/uL (0.0-0.2) 0.1 x10^3/uL (0.0-0.2) Segmented Neutrophils % 81 % (35-66) Band Neutrophils % 10 % (0-9) Lymphocytes % 8 % (24-48) Monocytes % 1 % (0-10) Nucleated Red Blood Cells 2 Platelet Estimate Adequate (ADEQUATE) Polychromasia Slight Poikilocytosis Slight Basophilic Stippling Present Anisocytosis Mod Tear Drop Cells Occ Ovalocytes Present Prothrombin Time 17.0 SEC (11.7-14.0) Prothromb Time International Ratio 1.4 (0.8-1.1) Activated Partial Thromboplast Time 30 SEC (24-38) Sodium Level 133 mmol/L (136-145) 134 mmol/L (136-145) Potassium Level 5.3 mmol/L (3.5-5.1) 5.3 mmol/L (3.5-5.1) Chloride Level 96 mmol/L (98-107) 97 mmol/L (98-107) Carbon Dioxide Level 27 mmol/L (21-32) 24 mmol/L (21-32) Anion Gap 10 (6-14) 13 (6-14) Blood Urea Nitrogen 82 mg/dL (7-20) 94 mg/dL (7-20) Creatinine 2.3 mg/dL (0.6-1.0) 2.5 mg/dL (0.6-1.0) Estimated GFR (Cockcroft-Gault) 21.1 19.2 BUN/Creatinine Ratio 36 (6-20) Glucose Level 241 mg/dL (70-99) 170 mg/dL (70-99) Lactic Acid Level 0.8 mmol/L (0.4-2.0) Calcium Level 7.7 mg/dL (8.5-10.1) 8.1 mg/dL (8.5-10.1) Phosphorus Level 6.7 mg/dL (2.6-4.7) Magnesium Level 2.1 mg/dL (1.8-2.4) Total Bilirubin 0.8 mg/dL (0.2-1.0) Aspartate Amino Transf (AST/SGOT) 25 U/L (15-37) Alanine Aminotransferase (ALT/SGPT) 37 U/L (14-59) Alkaline Phosphatase 81 U/L (46-116) QL-Egd-P-Type Natriuretic Peptide 7349 pg/mL (0-124) Total Protein 5.7 g/dL (6.4-8.2) Albumin 2.0 g/dL (3.4-5.0) Albumin/Globulin Ratio 0.5 (1.0-1.7) Urine Collection Type Unknown Urine Color Yellow Urine Clarity Cloudy Urine pH 5.5 (<5.0-8.0) Urine Specific [place] 1.020 (1.000-1.030) Urine Protein 100 mg/dL (NEG-TRACE) Urine Glucose (UA) Negative mg/dL (NEG) Urine Ketones (Stick) Negative mg/dL (NEG) Urine Blood Large (NEG) Urine Nitrite Negative (NEG) Urine Bilirubin Negative (NEG) Urine Urobilinogen Dipstick 0.2 mg/dL (0.2 mg/dL) Urine Leukocyte Esterase Moderate (NEG) Urine RBC 11-20 /HPF (0-2) Urine WBC 20-40 /HPF (0-4) Urine Squamous Epithelial Cells Few /LPF Urine Renal Epithelial Cells Few /LPF Urine Bacteria Few /HPF (0-FEW) Urine Granular Casts Moderate /HPF O2 Saturation 96 % (92-99) Arterial Blood pH 7.16 (7.35-7.45) Arterial Blood pCO2 at Patient Temp 73 mmHg (35-46) Arterial Blood pO2 at Patient Temp 109 mmHg (65-108) Arterial Blood HCO3 25 mmol/L (21-28) Arterial Blood Base Excess -4 mmol/L (-3-3) FiO2 100 Test 03/17/21 07:10 O2 Saturation 97 % (92-99) Arterial Blood pH 7.18 (7.35-7.45) Arterial Blood pCO2 at Patient Temp 63 mmHg (35-46) Arterial Blood pO2 at Patient Temp 107 mmHg (65-108) Arterial Blood HCO3 23 mmol/L (21-28) Arterial Blood Base Excess -5 mmol/L (-3-3) FiO2 100 Laboratory Tests Test 03/16/21 14:21 03/16/21 16:11 03/16/21 20:02 03/17/21 06:30 White Blood Count 18.4 x10^3/uL (4.0-11.0) 17.1 x10^3/uL (4.0-11.0) Red Blood Count 2.62 x10^6/uL (3.50-5.40) 2.51 x10^6/uL (3.50-5.40) Hemoglobin 7.7 g/dL (12.0-15.5) 7.2 g/dL (12.0-15.5) Hematocrit 23.7 % (36.0-47.0) 23.1 % (36.0-47.0) Mean Corpuscular Volume 91 fL (79-100) 92 fL (79-100) Mean Corpuscular Hemoglobin 29 pg (25-35) 29 pg (25-35) Mean Corpuscular Hemoglobin Concent 32 g/dL (31-37) 31 g/dL (31-37) Red Cell Distribution Width 24.8 % (11.5-14.5) 24.5 % (11.5-14.5) Platelet Count 147 x10^3/uL (140-400) 143 x10^3/uL (140-400) Neutrophils (%) (Auto) 91 % (31-73) 89 % (31-73) Lymphocytes (%) (Auto) 5 % (24-48) 7 % (24-48) Monocytes (%) (Auto) 3 % (0-9) 4 % (0-9) Eosinophils (%) (Auto) 0 % (0-3) 0 % (0-3) Basophils (%) (Auto) 1 % (0-3) 0 % (0-3) Neutrophils # (Auto) 16.9 x10^3/uL (1.8-7.7) 15.1 x10^3/uL (1.8-7.7) Lymphocytes # (Auto) 0.9 x10^3/uL (1.0-4.8) 1.3 x10^3/uL (1.0-4.8) Monocytes # (Auto) 0.6 x10^3/uL (0.0-1.1) 0.7 x10^3/uL (0.0-1.1) Eosinophils # (Auto) 0.0 x10^3/uL (0.0-0.7) 0.0 x10^3/uL (0.0-0.7) Basophils # (Auto) 0.1 x10^3/uL (0.0-0.2) 0.1 x10^3/uL (0.0-0.2) Segmented Neutrophils % 81 % (35-66) Band Neutrophils % 10 % (0-9) Lymphocytes % 8 % (24-48) Monocytes % 1 % (0-10) Nucleated Red Blood Cells 2 Platelet Estimate Adequate (ADEQUATE) Polychromasia Slight Poikilocytosis Slight Basophilic Stippling Present Anisocytosis Mod Tear Drop Cells Occ Ovalocytes Present Prothrombin Time 17.0 SEC (11.7-14.0) Prothromb Time International Ratio 1.4 (0.8-1.1) Activated Partial Thromboplast Time 30 SEC (24-38) Sodium Level 133 mmol/L (136-145) 134 mmol/L (136-145) Potassium Level 5.3 mmol/L (3.5-5.1) 5.3 mmol/L (3.5-5.1) Chloride Level 96 mmol/L (98-107) 97 mmol/L (98-107) Carbon Dioxide Level 27 mmol/L (21-32) 24 mmol/L (21-32) Anion Gap 10 (6-14) 13 (6-14) Blood Urea Nitrogen 82 mg/dL (7-20) 94 mg/dL (7-20) Creatinine 2.3 mg/dL (0.6-1.0) 2.5 mg/dL (0.6-1.0) Estimated GFR (Cockcroft-Gault) 21.1 19.2 BUN/Creatinine Ratio 36 (6-20) Glucose Level 241 mg/dL (70-99) 170 mg/dL (70-99) Lactic Acid Level 0.8 mmol/L (0.4-2.0) Calcium Level 7.7 mg/dL (8.5-10.1) 8.1 mg/dL (8.5-10.1) Phosphorus Level 6.7 mg/dL (2.6-4.7) Magnesium Level 2.1 mg/dL (1.8-2.4) Total Bilirubin 0.8 mg/dL (0.2-1.0) Aspartate Amino Transf (AST/SGOT) 25 U/L (15-37) Alanine Aminotransferase (ALT/SGPT) 37 U/L (14-59) Alkaline Phosphatase 81 U/L (46-116) PN-Ubd-J-Type Natriuretic Peptide 7349 pg/mL (0-124) Total Protein 5.7 g/dL (6.4-8.2) Albumin 2.0 g/dL (3.4-5.0) Albumin/Globulin Ratio 0.5 (1.0-1.7) Urine Collection Type Unknown Urine Color Yellow Urine Clarity Cloudy Urine pH 5.5 (<5.0-8.0) Urine Specific [place] 1.020 (1.000-1.030) Urine Protein 100 mg/dL (NEG-TRACE) Urine Glucose (UA) Negative mg/dL (NEG) Urine Ketones (Stick) Negative mg/dL (NEG) Urine Blood Large (NEG) Urine Nitrite Negative (NEG) Urine Bilirubin Negative (NEG) Urine Urobilinogen Dipstick 0.2 mg/dL (0.2 mg/dL) Urine Leukocyte Esterase Moderate (NEG) Urine RBC 11-20 /HPF (0-2) Urine WBC 20-40 /HPF (0-4) Urine Squamous Epithelial Cells Few /LPF Urine Renal Epithelial Cells Few /LPF Urine Bacteria Few /HPF (0-FEW) Urine Granular Casts Moderate /HPF O2 Saturation 96 % (92-99) Arterial Blood pH 7.16 (7.35-7.45) Arterial Blood pCO2 at Patient Temp 73 mmHg (35-46) Arterial Blood pO2 at Patient Temp 109 mmHg (65-108) Arterial Blood HCO3 25 mmol/L (21-28) Arterial Blood Base Excess -4 mmol/L (-3-3) FiO2 100 Test 03/17/21 07:10 O2 Saturation 97 % (92-99) Arterial Blood pH 7.18 (7.35-7.45) Arterial Blood pCO2 at Patient Temp 63 mmHg (35-46) Arterial Blood pO2 at Patient Temp 107 mmHg (65-108) Arterial Blood HCO3 23 mmol/L (21-28) Arterial Blood Base Excess -5 mmol/L (-3-3) FiO2 100 Medications Active Scripts Medications Dose Route/Sig Max Daily Dose Days Date Category Dose Instructions Miralax (Polyethylene Glycol 3350) 17 Gm Powd.pack 1 Packet PO DAILY 2 03/16/21 Reported dissolve in water Protonix Packet (Pantoprazole Sodium) 40 Mg Granpkt.dr 40 Mg PO DAILY 03/16/21 Reported Metoprolol Tartrate 25 Mg Tablet 1 Tab PO BID 03/16/21 Reported Methylprednisolone Sod Succ 40 Mg Vial 60 Mg IV BID 03/16/21 Reported Duoneb 0.5-3(2.5) Mg/3 Ml (Albuterol/Ipratropium) 3 Ml Ampul.neb 3 Ml NEB QID 03/16/21 Reported Humalog (Insulin Lispro) 100 Unit/1 Ml Vial 6 Unit SQ Q6HRS 03/16/21 Reported Humalog (Insulin Lispro) 100 Unit/1 Ml Cartridge 0-6 Unit SQ Q6HRS 03/16/21 Reported Lantus Solostar (Insulin Glargine,Hum.rec.anlog) 100 Unit/1 Ml Insuln.pen 14 Unit SQ BID 03/16/21 Reported Ferrous Sulfate 325 Mg Tablet 1 Tab PO BID 03/16/21 Reported Diltiazem Hcl Tablet (Diltiazem Hcl) 60 Mg Tablet 60 Mg PO QID 03/16/21 Reported Eliquis (Apixaban) 5 Mg Tablet 5 Mg PO DAILY 03/16/21 Reported [amphotericin] 650 Mg IV DAILY 03/16/21 Reported Amiodarone Hcl 400 Mg Tablet 1 Tab PO DAILY 30 03/16/21 Reported Norepinephrine 8 mg/250 ml-D5w (Norepinephrine Bitartrate/D5w) 8 Mg/250 Ml Plast..bag 8 Mg IV PRN PRN 03/16/21 Reported Dexmedetomidin 400Mcg/100Ml-Ns (Dexmedetomidine in 0.9 % NaCl) 400 Mcg/100 Ml Infus..btl 400 Mcg IV PRN PRN 10/28/21 Reported Impression . Full note dictated Acute on chronic respiratory failure multifactorial Decrease PEEP decrease tidal volume KRISTIE SCHAFFER MD Mar 17, 2021 10:01
--- NOTE | 2021-03-17 11:17 | CONS ---
DATE OF CONSULTATION: 03/17/2021 REFERRING PHYSICIAN: [facility] REASON FOR CONSULTATION: Cryptococcus pulmonary infection. HISTORY OF PRESENT ILLNESS: A 70-year-old female admitted to [facility] on 12/25/2020 with acute hypoxic respiratory failure secondary to COVID-19 pneumonia. The patient was treated with remdesivir, dexamethasone and tocilizumab. The patient failed to wean from mechanical ventilation and tracheostomy and PEG tube were placed. The patient was transferred to [facility] on 02/09/2021 for ventilator weaning, tracheostomy care, tube feedings, physical and occupational and speech therapy. While she was at [facility], she could not be weaned off ventilator. 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 Cryptococcal antigen was positive at 1:[address] was done at [facility] on 03/15/2021. It showed slight interval progression in diffuse infiltrate with partial lower lobe consolidation that is superimposed on suspected emphysema and chronic interstitial changes. This study was compared to the CT scan done on 02/20/2021. There is also slight decrease in mediastinal and hilar lymphadenopathy. Cardiomegaly. CT head was done at [facility] due to altered mental status on 03/16/2021 which showed bilateral cerebral white matter changes likely due to small vessel disease. Bilateral mastoid and middle ear fluid. No acute or subacute extraaxial or intraparenchymal hemorrhage. No mass effect or midline shift. No hydrocephalus. The patient had been on Zosyn 02/24, until yesterday I switched her from Zosyn to meropenem as she was septic shock requiring pressor support. The patient also was started on linezolid on 03/16 due to sepsis. The patient had earlier received linezolid from 02/27 to 03/08. The patient had been started on fluconazole when cultures were reported positive for cryptococcus on 03/03, pending cryptococcal antigen titer. 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 On Saturday she was having some respiratory issues. She told me that she was tired. She was placed on ventilator on Saturday PM. On Saturday, she had altered mental status, so I had ordered a CT head stat with LP if able to perform, which was done on 03/16/2021 at [facility]. Pt's refused to give consent for LP. The patient's creatinine started increasing, so I held amphotericin on 03/15/2021 at 1.5. I gave her fluid bolus of one liter. She was started on pressors late pm on 03/15. Her creatinine went up to 2.03 from 1.52 on 03/16/2021, so I discontinued flucytosine also. She was started on steroids. The patient's white count was 15.8, hemoglobin of 6.7, platelets of 139. Potassium was greater than 6. C. diff toxin was negative on 02/28. 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 Discussed with at bedside who adamantly refused again today . 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 Discussed the potential complication of not getting LP. The patient also needs neurology evaluation, which is not available at [facility]. We discussed regarding need for transfer to a tertiary care center. The patient's said he has been asking for the same for the last couple of days, but no arrangements had been made. I again also extensively discussed with the patient's and family about epidemiology of cryptococcus and why it may have shown growth, possibly secondary to her immunocompromised state .prolonged hospitalization,steroid treatment since Dec 2020. CHLOÉ appears to be multifactorial including AmBisome and need for vasopressors. Renal team has been consulted. The patient is currently in ICU at [facility] where she was transferred last night. She is awaiting dialysis catheter placement and initiation for dialysis today per team. She is requiring Levophed, which has been increased this morning. Currently, she is on meropenem, linezolid and micafungin. I have been in touch with pharmacy to discuss about fluconazole drug-drug interactions with her other medications. AmBisome and flucytosine is on hold, which was started as induction therapy on 03/09/2021 at [facility]. The patient is currently on vent, not responsive. Remains afebrile. Urine output is about 50 mL every couple of hours. The patient has pressure sore injury which have been there at [facility] . Pictures reviewed on chart. Discussed with nurse taking care of the patient this morning in ICU. Neurology has not been consulted. PAST MEDICAL HISTORY: Asthma; obstructive sleep apnea, on CPA; GERD; left total knee arthroplasty; osteoarthritis; acute hypoxic respiratory failure secondary to sepsis and COVID-[address] [facility] on 12/25/2020, status post difficulty weaning off ventilator, status post trach and PEG tube placement. Her outside hospital course was complicated with upper GI bleed and endoscopy revealing gastric ulcers, severe esophagitis and H. pylori gastritis. She also had thrombocytopenia. She did have MRSA in the sputum at one time and Corine in the sputum and urine culture. She had diarrhea. C. diff was reported negative at outside hospital and at [facility]. AFib with RVR and had been on amiodarone and diltiazem, hyperlipidemia, chronic pain. ALLERGIES: ANTIHISTAMINE SUCH CHLORPHENIRAMINE, ASPIRIN, FLUTICASONE AND SALMETEROL. CURRENT MEDICATIONS: Meropenem, norepinephrine, lansoprazole, amiodarone, metoprolol, albuterol, heparin, insulin, micafungin, linezolid, fentanyl citrate, nitroglycerin, acetaminophen, midazolam, atropine, dexmedetomidine. PAST SURGICAL HISTORY: As above, right rotator cuff repair, left carpal tunnel release, left total knee arthroplasty. SOCIAL HISTORY: Unobtainable. The patient is . I met her who has been at bedside at [facility]. Currently on ventilator. FAMILY HISTORY: Unable to obtain, on ventilator. REVIEW OF SYSTEMS: Negative to obtain, on ventilator. PHYSICAL EXAMINATION: VITAL SIGNS: Temperature 96.6, pulse 75, respiratory rate 22, blood pressure 125/49, oxygen saturation 100%, FiO2 of 100 and PEEP of 14. GENERAL: The patient is in bed, nonresponsive, ill-appearing, on ventilation. HEENT: Normocephalic, atraumatic. Pupils equal, small anicteric conjunctivae. Unable to fully open the mouth for evaluation. NECK: Tracheostomy/vent. HEART: S1, S2. No murmurs. LUNGS: Decreased breath sound at bases. No labored breathing. ABDOMEN: Obese, soft. Bowel sounds present. G-tube intact. GENITOURINARY: Stephens placed 03/15/2021 with about 50 mL clear urine at this time. EXTREMITIES: Trace edema in the lower extremity, no cyanosis. DERMATOLOGIC: No generalized rash. Blister, left plantar foot. See wound care notes and pictures for full details. NEUROLOGIC: Nonresponsive. Right upper extremity midline clean. LABORATORY DATA: WBC 17.1, hemoglobin 7.2, hematocrit 23.1, platelets 143. Sodium 134; potassium 5.3; chloride 97; bicarb 24; BUN 94; creatinine 2.5, was 2.3 yesterday; glucose 170. Lactate 0.8. BNP 7349. Albumin 2.0. UA shows large blood, WBC 20-40, moderate leukocyte esterase. IMAGIN. Chest x-ray: Severe bilateral interstitial and alveolar infiltrates. Findings consistent with severe COVID-19 pneumonia. Tracheostomy tube noted. 2. Cryptococcal antigen positive titer 1:2560 on 03/03. Repeat cryptococcus antigen positive titer 1:2560 on 03/09. C. diff negative at outside facility 02/28/2021. Blood culture 03/15 negative so far. 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 3. CT head: Bilateral cerebral white matter changes likely due to chronic small vessel disease. Bilateral mastoid and middle air fluid. This can be seen with effusions as well as sequelae of otomastoiditis. Note is made that MRI is more sensitive for acute infarction. 4. CT chest, 03/15/2021: Slight interval progression and diffuse infiltrate with partial lower lobe consolidation that is superimposed on suspected emphysema and chronic interstitial changes. Slight interval decrease in mediastinal and hilar lymphadenopathy. Cardiomegaly. 5. Echo reviewed. IMPRESSION: 1. 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 Serous fluid has had no neutrophil or lymphocyte. BAL had many pulmonary macrophages, few bronchial epithelial cells present, indicative of lower respiratory tract sample, clean with moderate predominantly acute inflammation. Silver stain was positive for yeast and fungal elements, negative for PJP. The patient had been on steroids at outside hospital. The patient has no other risk factors including farming, construction, gardening or gross outdoor activities per discussion with . Repeat cryptococcal titer as above. 2. Encephalopathy, concern for meningoencephalitis with severe pulmonary disease and cryptococcal antigen greater than 1:512. The patient was started on AmBisome and flucytosine on 03/09/2021 for possible meningoencephalitis.. 3. Acute kidney injury, worsening, appears multifactorial including AmBisome and vasopressor need. The patient was given fluid bolus on 03/15/2021, despite which creatinine continued to worsen, also sepsis could be contributing 4. Severe Sepsis. Blood cultures pending at this time.UC pending 5. Status post tracheostomy with difficulty weaning off vent, status post BAL 02/21 with cultures positive for Strep group B and Cryptococcus neoformans. 6. Worsening respiratory failure, currently on FiO2 100%, PEEP of 14, appears multifactorial. 7. Leukocytosis in part reactive from steroids. C. diff negative on 02/28/2021. 8. UTI. History of Klebsiella in urine 02/20, no pyuria, likely colonization. 9. History of trach cultures positive for Corine dubliniensis at outside hospital. 10. History of Corine in urine at outside hospital. 11. History of methicillin-resistant Staphylococcus aureus in the sputum at outside hospital. 12. COVID-19 viral pneumonia with acute hypoxic respiratory failure, requiring tracheostomy. 13. Oropharyngeal dysphagia, maintained on tube feedings. 14. Paroxysmal atrial fibrillation with rapid ventricular response, on amiodarone. 15. Morbid obesity. 16. Gastrointestinal bleed. 17. Critical illness myopathy. 18. Gastroesophageal reflux disease. 19. Asthma. 20. Obstructive sleep apnea. 21. Status post left knee arthroplasty. 22. Osteoarthritis. 23. Hypothyroidism. 24. History of chronic pain. 25. Hyperlipidemia. 26. Otomastoiditis and Ear fliud collection RECOMMENDATIONS: 1. Continue to hold AmBisome and flucytosine with CHLOÉ. Initial plan was for 2 weeks for induction therapy from 03/09/2021 2. Fluconazole not an option due to Amiodarone. D/W Pharmacy. 3. Follow blood cultures from 03/15 and 03/16. 4. Continue empiric Merrem and linezolid and micafungin. 5. Monitor labs and cultures. 6. Would recommend LP with bacterial, fungal, AFB stain and cultures along with cell count and opening pressure. I discussed with at length yesterday regarding the need for the same, but he had been adamantly refusing consent for LP. 7. I have ordered Neurology consultation. 8. Renal team is following. 9. Pulmonary is consulted. 10. Critically ill. 11. Prognosis is poor. Total time spent CCT 50 minutes. Discussed with RN here at [facility]. Discussed with pharmacy [facility]. D/W Dr Yoon Thank you, for consulting Infectious Disease to participate in this patient's care. If you have any questions, do not hesitate to contact me. CATHY DR: Pia TID: [id number] ADDENDUM I d/w at bedside. I told him that will hold amphotericin and flucytosine for now due to worsening renal function. Renal team consulted Awaiting HDC and HD Pt's today mentioned about his only concern with pt being off trach/vent for sometime with rapid response Saturday morning before 8 am. Since then her respiratory status worsened . He is worried about potential brain damage. Pt understands clearly about fungal infection and the options about the treatment and potential complications with meds and drug interactions. He had no further questions regarding evaluation and treatment of infection at this time. MTDD
[2021-03-17] MEDS: IPRATRPIUM/ALBUTEROL 0.5/2.5MG 3 ML NEBU. NEB SCH ×3 (11:22→20:11)
--- NOTE | 2021-03-17 12:04 | PDOC2 ---
NEUROLOGY CONSULT Date of Service DOS: DATE: 03/17/21 TIME: 12:03 Reason for Consult Reason for Consult: Altered mental status, cryptococcal pneumonia Referring Physician Referring Physician: Dr. Guillermo Chan Source Source: Chart review History of Present Illness History of Present Illness The patient is a 70-year-old female admitted to [facility] on 12/25/2020 with acute respiratory failure secondary to Covid pneumonia. We believe she was unvaccinated. She was given remdesivir, dexamethasone and tocilizumab. The patient failed to wean from mechanical ventilation and required tracheostomy and PEG. She was then transferred to [facility] on 02/09/2021 for ventilator weaning, tracheostomy care, tube feedings, and therapies. However, she was very slow to wean so Dr. Fierro performed bronchoscopy on 02/21, showing cryptococcal pneumonia. She has developed increased renal failure, respiratory failure, and her ventilatory support has had to be increased. She was transferred over here for further care. She did have a head CT on 03/15, as reviewed below, negative for any acute abnormality. Dr. Li discussed with the a lumbar puncture but he adamantly refuses. There is no listed history of stroke, seizure, or head injury. She has also had upper GI bleed with endoscopy revealing gastric ulcers, severe esophagitis and H. pylori gastritis, thrombocytopenia, MRSA in the sputum at one time and Corine in the sputum and urine culture. She had diarrhea with negative C. difficile. She has had atrial fibrillation with rapid ventricular response. Past Medical History Cardiovascular: AFIB, HTN, Hyperlipidemia Pulmonary: Asthma, COPD, Other (Sleep apnea on CPAP) GI: GI bleed, Peptic Ulcer disease Musculoskeletal: Osteoarthritis Infectious disease: Other (COVID-19) Renal/: Acute renal failure Endocrine: Diabetes, Hypothyroidism Past Surgical History Past Surgical History: Total knee replacement (Left), Other (right rotator cuff repair, left carpal tunnel. PEG and tracheostomy this illness) Family History Family History: DM Social History Social History Current Medications Current Medications Current Medications Midazolam HCl (Versed) 2 mg STK-MED ONCE .ROUTE ; Start 03/16/21 at 13:52; Stop 03/16/21 at 13:53; Status DC Dexmedetomidine HCl 400 mcg/ Sodium Chloride 100 ml @ 0 mls/hr CONT PRN IV PER PROTOCOL Last administered on 03/17/21at 11:40; Start 03/16/21 at 14:00 Sodium Chloride 500 ml @ 500 mls/hr 1X PRN PRN IV SEE COMMENTS; Start 03/16/21 at 14:00 Atropine Sulfate (ATROPINE 0.5mg SYRINGE) 0.5 mg PRN Q5MIN PRN IV SEE COMMENTS; Start 03/16/21 at 14:00 Norepinephrine Bitartrate 8 mg/ Dextrose 258 ml @ 27.864 mls/ hr 1X ONCE IV Last administered on 03/16/21at 14:13; Start 03/16/21 at 14:00; Stop 03/16/21 at 23:15; Status DC Midazolam HCl (Versed) 2 mg 1X ONCE IVP Last administered on 03/16/21at 13:58; Start 03/16/21 at 14:00; Stop 03/16/21 at 14:01; Status DC Calcium Gluconate (Calcium Gluconate) 1,000 mg 1X ONCE IVP Last administered on 03/16/21at 15:01; Start 03/16/21 at 14:45; Stop 03/16/21 at 14:46; Status DC Midazolam HCl (Versed) 5 mg 1X ONCE NS Last administered on 03/16/21at 14:41; Start 03/16/21 at 14:45; Stop 03/16/21 at 14:46; Status DC Midazolam HCl 100 ml @ 1 mls/hr CONT PRN IV SEE PROTOCOL Last administered on 03/17/21at 01:54; Start 03/16/21 at 15:00 Propofol 100 ml @ As Directed STK-MED ONCE IV ; Start 03/16/21 at 14:55; Stop 03/16/21 at 14:55; Status DC Acetaminophen (Tylenol) 650 mg PRN Q4HRS PRN PO FEVER > 100.3'F; Start 03/16/21 at 16:30; Stop 03/17/21 at 16:29 Nitroglycerin (Nitrostat) 0.4 mg PRN Q5MIN PRN SL CHEST PAIN; Start 03/16/21 at 16:30; Stop 03/17/21 at 16:29 Fentanyl Citrate 30 ml @ 0 mls/hr CONT PRN IV SEE PROTOCOL Last administered on 03/17/21at 11:39; Start 03/16/21 at 18:00 Vecuronium Johnson (Norcuron Bolus) 10 mg 1X ONCE IV Last administered on 03/16/21at 18:06; Start 03/16/21 at 18:00; Stop 03/16/21 at 18:01; Status DC Meropenem 500 mg/ Sodium Chloride 50 ml @ 100 mls/hr Q8H IV Last administered on 03/17/21at 04:12; Start 03/16/21 at 20:00; Stop 03/17/21 at 04:30; Status DC Linezolid/Dextrose 300 ml @ 300 mls/hr Q12HR IV Last administered on 03/17/21at 09:38; Start 03/16/21 at 21:00 Micafungin Sodium 100 mg/Dextrose 100 ml @ 100 mls/hr Q24H IV Last ad ministered on 03/16/21at 23:49; Start 03/16/21 at 22:00 Pharmacy Consult (C.diff Med Screen By Rx) 1 each 1X ONCE MC ; Start 03/16/21 at 23:45; Stop 03/16/21 at 23:46; Status DC Albuterol/ Ipratropium (Duoneb) 3 ml QID NEB Last administered on 03/17/21at 11:22; Start 03/17/21 at 09:00 Metoprolol Tartrate (Lopressor) 25 mg BID PO ; Start 03/17/21 at 09:00 Polyethylene Glycol (miraLAX PACKET) 17 gm DAILY PO Last administered on 03/17/21at 09:35; Start 03/17/21 at 09:00 Amiodarone HCl (Cordarone) 200 mg DAILY PO Last administered on 03/17/21at 09:34; Start 03/17/21 at 09:00 Pantoprazole Sodium (Protonix) 40 mg DAILYAC PO ; Start 03/17/21 at 07:30; Status Cancel Insulin Human Lispro (HumaLOG) 0-9 UNITS Q6HRS SQ ; Start 03/17/21 at 06:00 Dextrose (Dextrose 50%-Water Syringe) 12.5 gm PRN Q15MIN PRN IV SEE COMMENTS; Start 03/17/21 at 02:45 Meropenem 500 mg/ Sodium Chloride 50 ml @ 100 mls/hr Q8HRS IV ; Start 03/17/21 at 14:00 Heparin Sodium (Porcine) (Heparin Sodium) 5,000 unit Q8HRS SQ Last administered on 03/17/21at 06:15; Start 03/17/21 at 06:00 Lansoprazole (Prevacid) 30 mg DAILY07 PEG Last administered on 03/17/21at 09:57; Start 03/17/21 at 09:00 Norepinephrine Bitartrate 8 mg/ Dextrose 258 ml @ 26.703 mls/ hr CONT PRN IV PER PROTOCOL Last administered on 03/17/21at 09:58; Start 03/17/21 at 09:00 Active Scripts Active Reported Miralax (Polyethylene Glycol 3350) 17 Gm Powd.pack 1 Packet PO DAILY 2 Days dissolve in water Protonix Packet (Pantoprazole Sodium) 40 Mg Granpkt.dr 40 Mg PO DAILY Metoprolol Tartrate 25 Mg Tablet 1 Tab PO BID Methylprednisolone Sod Succ 40 Mg Vial 60 Mg IV BID Duoneb 0.5-3(2.5) Mg/3 Ml (Albuterol/Ipratropium) 3 Ml Ampul.neb 3 Ml NEB QID Humalog (Insulin Lispro) 100 Unit/1 Ml Vial 6 Unit SQ Q6HRS Humalog (Insulin Lispro) 100 Unit/1 Ml Cartridge 0-6 Unit SQ Q6HRS Lantus Solostar (Insulin Glargine,Hum.rec.anlog) 100 Unit/1 Ml Insuln.pen 14 Unit SQ BID Ferrous Sulfate 325 Mg Tablet 1 Tab PO BID Diltiazem Hcl Tablet (Diltiazem Hcl) 60 Mg Tablet 60 Mg PO QID Eliquis (Apixaban) 5 Mg Tablet 5 Mg PO DAILY [amphotericin] 650 Mg IV DAILY Amiodarone Hcl 400 Mg Tablet 1 Tab PO DAILY 30 Days Norepinephrine 8 mg/250 ml-D5w (Norepinephrine Bitartrate/D5w) 8 Mg/250 Ml Plast..bag 8 Mg IV PRN PRN Dexmedetomidin 400Mcg/100Ml-Ns (Dexmedetomidine in 0.9 % NaCl) 400 Mcg/100 Ml Infus..btl 400 Mcg IV PRN PRN Allergies Allergies: Coded Allergies: Antihistamines - Ethylenediamine (Verified Allergy, Intermediate, 03/16/21) aspirin (Verified Allergy, Intermediate, 03/16/21) fluconazole (Verified Allergy, Intermediate, 03/16/21) salmeterol (Verified Allergy, Intermediate, 03/16/21) ROS Review of System Unobtainable Physical Exam Physical Examination General: Well-developed, well-nourished, black female, in no acute distress HEENT: Normocephalic andatraumatic.Temporal arteriespulsatile and nontender. Neck: Supple without bruit, no meningismus Musculoskeletal: Stability:see neurologic. Gait exam:see neurologic. Tone:see neurologic.Strength:see neurologic. Neurological: Mental Status:Sedated on ventilator, no response. Cranial Nerves:Pupils equal and reactive to light, extraocular movements areintact. There is no facial asymmetry. All other cranial related problems are negative except as mentioned before.Reflexes:0-1+ and symmetric with silent plantar responses. Motor:No response to pain. Coordinationand gait:Not cooperative. Sensory:Not cooperative. Vitals VITALS Vital Signs Date Time Temp Pulse Resp B/P (MAP) Pulse Ox O2 Delivery O2 Flow Rate FiO2 03/17/21 11:00 100 Ventilator 03/17/21 10:00 75 22 125/49 03/17/21 04:00 96.6 96.6 03/16/21 18:08 15.0 Labs Labs Laboratory Tests Test 03/16/21 14:21 03/16/21 16:11 03/16/21 20:02 03/17/21 06:30 White Blood Count 18.4 x10^3/uL (4.0-11.0) 17.1 x10^3/uL (4.0-11.0) Red Blood Count 2.62 x10^6/uL (3.50-5.40) 2.51 x10^6/uL (3.50-5.40) Hemoglobin 7.7 g/dL (12.0-15.5) 7.2 g/dL (12.0-15.5) Hematocrit 23.7 % (36.0-47.0) 23.1 % (36.0-47.0) Mean Corpuscular Volume 91 fL (79-100) 92 fL (79-100) Mean Corpuscular Hemoglobin 29 pg (25-35) 29 pg (25-35) Mean Corpuscular Hemoglobin Concent 32 g/dL (31-37) 31 g/dL (31-37) Red Cell Distribution Width 24.8 % (11.5-14.5) 24.5 % (11.5-14.5) Platelet Count 147 x10^3/uL (140-400) 143 x10^3/uL (140-400) Neutrophils (%) (Auto) 91 % (31-73) 89 % (31-73) Lymphocytes (%) (Auto) 5 % (24-48) 7 % (24-48) Monocytes (%) (Auto) 3 % (0-9) 4 % (0-9) Eosinophils (%) (Auto) 0 % (0-3) 0 % (0-3) Basophils (%) (Auto) 1 % (0-3) 0 % (0-3) Neutrophils # (Auto) 16.9 x10^3/uL (1.8-7.7) 15.1 x10^3/uL (1.8-7.7) Lymphocytes # (Auto) 0.9 x10^3/uL (1.0-4.8) 1.3 x10^3/uL (1.0-4.8) Monocytes # (Auto) 0.6 x10^3/uL (0.0-1.1) 0.7 x10^3/uL (0.0-1.1) Eosinophils # (Auto) 0.0 x10^3/uL (0.0-0.7) 0.0 x10^3/uL (0.0-0.7) Basophils # (Auto) 0.1 x10^3/uL (0.0-0.2) 0.1 x10^3/uL (0.0-0.2) Segmented Neutrophils % 81 % (35-66) Band Neutrophils % 10 % (0-9) Lymphocytes % 8 % (24-48) Monocytes % 1 % (0-10) Nucleated Red Blood Cells 2 Platelet Estimate Adequate (ADEQUATE) Polychromasia Slight Poikilocytosis Slight Basophilic Stippling Present Anisocytosis Mod Tear Drop Cells Occ Ovalocytes Present Prothrombin Time 17.0 SEC (11.7-14.0) Prothromb Time International Ratio 1.4 (0.8-1.1) Activated Partial Thromboplast Time 30 SEC (24-38) Sodium Level 133 mmol/L (136-145) 134 mmol/L (136-145) Potassium Level 5.3 mmol/L (3.5-5.1) 5.3 mmol/L (3.5-5.1) Chloride Level 96 mmol/L (98-107) 97 mmol/L (98-107) Carbon Dioxide Level 27 mmol/L (21-32) 24 mmol/L (21-32) Anion Gap 10 (6-14) 13 (6-14) Blood Urea Nitrogen 82 mg/dL (7-20) 94 mg/dL (7-20) Creatinine 2.3 mg/dL (0.6-1.0) 2.5 mg/dL (0.6-1.0) Estimated GFR (Cockcroft-Gault) 21.1 19.2 BUN/Creatinine Ratio 36 (6-20) Glucose Level 241 mg/dL (70-99) 170 mg/dL (70-99) Lactic Acid Level 0.8 mmol/L (0.4-2.0) Calcium Level 7.7 mg/dL (8.5-10.1) 8.1 mg/dL (8.5-10.1) Phosphorus Level 6.7 mg/dL (2.6-4.7) Magnesium Level 2.1 mg/dL (1.8-2.4) Total Bilirubin 0.8 mg/dL (0.2-1.0) Aspartate Amino Transf (AST/SGOT) 25 U/L (15-37) Alanine Aminotransferase (ALT/SGPT) 37 U/L (14-59) Alkaline Phosphatase 81 U/L (46-116) DF-Zhq-L-Type Natriuretic Peptide 7349 pg/mL (0-124) Total Protein 5.7 g/dL (6.4-8.2) Albumin 2.0 g/dL (3.4-5.0) Albumin/Globulin Ratio 0.5 (1.0-1.7) Urine Collection Type Unknown Urine Color Yellow Urine Clarity Cloudy Urine pH 5.5 (<5.0-8.0) Urine Specific Upper Tract 1.020 (1.000-1.030) Urine Protein 100 mg/dL (NEG-TRACE) Urine Glucose (UA) Negative mg/dL (NEG) Urine Ketones (Stick) Negative mg/dL (NEG) Urine Blood Large (NEG) Urine Nitrite Negative (NEG) Urine Bilirubin Negative (NEG) Urine Urobilinogen Dipstick 0.2 mg/dL (0.2 mg/dL) Urine Leukocyte Esterase Moderate (NEG) Urine RBC 11-20 /HPF (0-2) Urine WBC 20-40 /HPF (0-4) Urine Squamous Epithelial Cells Few /LPF Urine Renal Epithelial Cells Few /LPF Urine Bacteria Few /HPF (0-FEW) Urine Granular Casts Moderate /HPF O2 Saturation 96 % (92-99) Arterial Blood pH 7.16 (7.35-7.45) Arterial Blood pCO2 at Patient Temp 73 mmHg (35-46) Arterial Blood pO2 at Patient Temp 109 mmHg (65-108) Arterial Blood HCO3 25 mmol/L (21-28) Arterial Blood Base Excess -4 mmol/L (-3-3) FiO2 100 Test 03/17/21 07:10 O2 Saturation 97 % (92-99) Arterial Blood pH 7.18 (7.35-7.45) Arterial Blood pCO2 at Patient Temp 63 mmHg (35-46) Arterial Blood pO2 at Patient Temp 107 mmHg (65-108) Arterial Blood HCO3 23 mmol/L (21-28) Arterial Blood Base Excess -5 mmol/L (-3-3) FiO2 100 Laboratory Tests Test 03/16/21 14:21 03/16/21 16:11 03/16/21 20:02 03/17/21 06:30 White Blood Count 18.4 x10^3/uL (4.0-11.0) 17.1 x10^3/uL (4.0-11.0) Red Blood Count 2.62 x10^6/uL (3.50-5.40) 2.51 x10^6/uL (3.50-5.40) Hemoglobin 7.7 g/dL (12.0-15.5) 7.2 g/dL (12.0-15.5) Hematocrit 23.7 % (36.0-47.0) 23.1 % (36.0-47.0) Mean Corpuscular Volume 91 fL (79-100) 92 fL (79-100) Mean Corpuscular Hemoglobin 29 pg (25-35) 29 pg (25-35) Mean Corpuscular Hemoglobin Concent 32 g/dL (31-37) 31 g/dL (31-37) Red Cell Distribution Width 24.8 % (11.5-14.5) 24.5 % (11.5-14.5) Platelet Count 147 x10^3/uL (140-400) 143 x10^3/uL (140-400) Neutrophils (%) (Auto) 91 % (31-73) 89 % (31-73) Lymphocytes (%) (Auto) 5 % (24-48) 7 % (24-48) Monocytes (%) (Auto) 3 % (0-9) 4 % (0-9) Eosinophils (%) (Auto) 0 % (0-3) 0 % (0-3) Basophils (%) (Auto) 1 % (0-3) 0 % (0-3) Neutrophils # (Auto) 16.9 x10^3/uL (1.8-7.7) 15.1 x10^3/uL (1.8-7.7) Lymphocytes # (Auto) 0.9 x10^3/uL (1.0-4.8) 1.3 x10^3/uL (1.0-4.8) Monocytes # (Auto) 0.6 x10^3/uL (0.0-1.1) 0.7 x10^3/uL (0.0-1.1) Eosinophils # (Auto) 0.0 x10^3/uL (0.0-0.7) 0.0 x10^3/uL (0.0-0.7) Basophils # (Auto) 0.1 x10^3/uL (0.0-0.2) 0.1 x10^3/uL (0.0-0.2) Segmented Neutrophils % 81 % (35-66) Band Neutrophils % 10 % (0-9) Lymphocytes % 8 % (24-48) Monocytes % 1 % (0-10) Nucleated Red Blood Cells 2 Platelet Estimate Adequate (ADEQUATE) Polychromasia Slight Poikilocytosis Slight Basophilic Stippling Present Anisocytosis Mod Tear Drop Cells Occ Ovalocytes Present Prothrombin Time 17.0 SEC (11.7-14.0) Prothromb Time International Ratio 1.4 (0.8-1.1) Activated Partial Thromboplast Time 30 SEC (24-38) Sodium Level 133 mmol/L (136-145) 134 mmol/L (136-145) Potassium Level 5.3 mmol/L (3.5-5.1) 5.3 mmol/L (3.5-5.1) Chloride Level 96 mmol/L (98-107) 97 mmol/L (98-107) Carbon Dioxide Level 27 mmol/L (21-32) 24 mmol/L (21-32) Anion Gap 10 (6-14) 13 (6-14) Blood Urea Nitrogen 82 mg/dL (7-20) 94 mg/dL (7-20) Creatinine 2.3 mg/dL (0.6-1.0) 2.5 mg/dL (0.6-1.0) Estimated GFR (Cockcroft-Gault) 21.1 19.2 BUN/Creatinine Ratio 36 (6-20) Glucose Level 241 mg/dL (70-99) 170 mg/dL (70-99) Lactic Acid Level 0.8 mmol/L (0.4-2.0) Calcium Level 7.7 mg/dL (8.5-10.1) 8.1 mg/dL (8.5-10.1) Phosphorus Level 6.7 mg/dL (2.6-4.7) Magnesium Level 2.1 mg/dL (1.8-2.4) Total Bilirubin 0.8 mg/dL (0.2-1.0) Aspartate Amino Transf (AST/SGOT) 25 U/L (15-37) Alanine Aminotransferase (ALT/SGPT) 37 U/L (14-59) Alkaline Phosphatase 81 U/L (46-116) JR-Pzg-N-Type Natriuretic Peptide 7349 pg/mL (0-124) Total Protein 5.7 g/dL (6.4-8.2) Albumin 2.0 g/dL (3.4-5.0) Albumin/Globulin Ratio 0.5 (1.0-1.7) Urine Collection Type Unknown Urine Color Yellow Urine Clarity Cloudy Urine pH 5.5 (<5.0-8.0) Urine Specific Upper Tract 1.020 (1.000-1.030) Urine Protein 100 mg/dL (NEG-TRACE) Urine Glucose (UA) Negative mg/dL (NEG) Urine Ketones (Stick) Negative mg/dL (NEG) Urine Blood Large (NEG) Urine Nitrite Negative (NEG) Urine Bilirubin Negative (NEG) Urine Urobilinogen Dipstick 0.2 mg/dL (0.2 mg/dL) Urine Leukocyte Esterase Moderate (NEG) Urine RBC 11-20 /HPF (0-2) Urine WBC 20-40 /HPF (0-4) Urine Squamous Epithelial Cells Few /LPF Urine Renal Epithelial Cells Few /LPF Urine Bacteria Few /HPF (0-FEW) Urine Granular Casts Moderate /HPF O2 Saturation 96 % (92-99) Arterial Blood pH 7.16 (7.35-7.45) Arterial Blood pCO2 at Patient Temp 73 mmHg (35-46) Arterial Blood pO2 at Patient Temp 109 mmHg (65-108) Arterial Blood HCO3 25 mmol/L (21-28) Arterial Blood Base Excess -4 mmol/L (-3-3) FiO2 100 Test 03/17/21 07:10 O2 Saturation 97 % (92-99) Arterial Blood pH 7.18 (7.35-7.45) Arterial Blood pCO2 at Patient Temp 63 mmHg (35-46) Arterial Blood pO2 at Patient Temp 107 mmHg (65-108) Arterial Blood HCO3 23 mmol/L (21-28) Arterial Blood Base Excess -5 mmol/L (-3-3) FiO2 100 Images Images EXAM: Head CT without contrast, 03/15. HISTORY: Altered mental status. TECHNIQUE: Computed tomographic images of the head were obtained without contrast. *One or more of the following individualized dose reduction techniques were utilized for this examination: 1. Automated exposure control. 2. Adjustment of the mA and/or kV according to patient size. 3. Use of iterative reconstruction technique. COMPARISON: None. FINDINGS: There is no acute or subacute extra-axial or intraparenchymal hemorrhage. There is no mass effect or midline shift. There is no hydrocephalus. There are areas of decreased attenuation within the cerebral white matter, nonspecific and likely related to chronic small vessel disease. There is cerebral volume loss. There is evidence of lens surgery. There are maxillary sinus mucous retention cysts. There is fluid throughout the bilateral mastoid air cells and right greater than left middle ears. There is no suspicious calvarial lesion. IMPRESSION: 1. Bilateral cerebral white matter changes, likely due to chronic small vessel d isease. 2. Bilateral mastoid and middle ear fluid. This can be seen with effusions as well as the sequela of otomastoiditis. 3. Note is made that MRI is more sensitive for acute infarction. Assessment/Plan Assessment/Plan Impression: Metabolic encephalopathy with multiple medical issues, concerns about crytococcal meningitis, but is refusing lumbar puncture. Note that she is on multiple antibiotics, Levophed, and is sedated with fentanyl, midazolam, and dexmedetomidine. Medical issues: Covid pneumonia, respiratory failure requiring tracheostomy and PEG, cryptococcal pneumonia, renal failure, upper GI bleed with endoscopy revealing gastric ulcers, severe esophagitis and H. pylori gastritis, thrombocytopenia, MRSA in the sputum at one time and Corine in the sputum and urine culture, diarrhea with negative C. difficile, atrial fibrillation with rapid ventricular response. Recommendations: was unavailable for discussion, but I respect his decision not to do a lumbar puncture. Neurological exam is invalid with the multiple sedatives, electroencephalogram would be pointless, I do not see a need to repeat brain imaging studies. Thank you for letting me help with the patient's care. HEIDY ALVAREZ MD Mar 17, 2021 12:04
--- NOTE | 2021-03-17 12:22 | CONS ---
DATE OF CONSULTATION: 03/17/2021 ATTENDING PHYSICIAN: Edis Chan MD REASON FOR CONSULTATION: The patient is seen in Pulmonary consultation at the request of Dr. Chan for vent management. HISTORY OF PRESENT ILLNESS: The patient is a 70-year-old -[place] female that has a history of COVID-19 viral pneumonia, sepsis, status post trach and PEG. She was at [facility]. She requires a dialysis catheter for worsening renal failure. She was transferred to [place] for hemodialysis catheter placement. The patient is currently on assist control 14 of PEEP, 100% FiO2. Last night, I was called with her arterial blood gas revealing a pH of 7.16, PaCO2 of 73, pO2 of 109. I increased the minute ventilation, but her peak airway pressure dewayne tremendously high. As a consequence, we went back on the current settings. This morning, the patient is on assist control ventilation, tidal volume of 550, 14 of PEEP and 100%. Arterial blood gas revealed a pH of 7.18, PaCO2 of 63, pO2 of 107. She is on inverse ratio. The patient's hospitalization course started at [facility] where she underwent trach and PEG in 12/2020. Her course was likewise complicated with cryptococcus. She is currently being treated with amphotericin B. She is also on Zyvox and Zosyn. Infectious Disease has been consulted. PAST MEDICAL HISTORY: Remarkable for obstructive lung disease, suspect asthma, gastroesophageal reflux, hyperlipidemia, hypothyroidism, chronic pain, obstructive sleep apnea, obesity. PAST SURGICAL HISTORY: She has had previous rotator cuff surgery, total knee replacement. FAMILY HISTORY: Hyperlipidemia. ALLERGIES: LISTED TO ANTIHISTAMINE, ASPIRIN, , SALMETEROL AND ETHYLENEDIAMINE. REVIEW OF SYSTEMS: Unobtainable secondary to the patient's condition. CURRENT MEDICATIONS: List was reviewed. Please see the MAR. PHYSICAL EXAMINATION: VITAL SIGNS: Stable since admission. She has been afebrile. HEENT: Eyes, the sclerae were nonicteric. NECK: Trach in place. CHEST: Full expansion. CHEST: Adequate flow. No wheezes. CARDIOVASCULAR: Regular rate and rhythm with S1, S2, no S3. ABDOMEN: Obese. PEG in place. EXTREMITIES: No clubbing or cyanosis. Some edema. NEUROLOGIC: The patient was sedated. IMAGING DATA: Chest x-ray was reviewed. There are bilateral pulmonary infiltrates compatible with ARDS, possible pulmonary fibrosis. LABORATORY DATA: White count was elevated at 18,000, hemoglobin and hematocrit were chronically low as 7.7 and 23. Electrolytes were deranged. BUN was elevated, creatinine was elevated. Calcium was low. Phosphorus was high. BNP was elevated. Albumin was low. IMPRESSION: 1. Acute on chronic respiratory failure, multifactorial. 2. COVID-19 viral pneumonia, sepsis, acute respiratory distress syndrome, complicated with cryptococcal infection. 3. Cryptococcal pneumonia. 4. 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 5. Acute renal failure. 6. Septic shock. 7. Severe protein malnutrition, present upon admission. 8. Status post percutaneous endoscopic gastrostomy and trach. 9. Asthma. 10. Gastroesophageal reflux. 11. Obesity. 12. Chronic atrial fibrillation. The patient currently on amiodarone. PLAN: 1. We will decrease minute ventilation to decrease peak airway pressures, titrate PEEP down to 12, titrate of tidal volume to 500. 2. Continue antibiotics and amphotericin B per ID. 3. Hemodialysis catheter to be placed today. 4. Continue sedation. 5. DVT prophylaxis. 6. Nutritional support. 7. Monitor for any amiodarone-induced lung injury. 8. Titrate Levophed for mean arterial pressure above 60. I do appreciate the privilege in sharing in the patient's care. SUSIE/REX DR: Mable TID: [id number]
[2021-03-17] MEDS ORDERED: SODIUM BICARB ADULT 8.4% 50 MEQ/50 ML DISP.SYRIN. IV ONE (12:30)
[2021-03-17] MEDS ORDERED: VECURONIUM BOLUS 10 MG VIAL. IV ONE (12:32)
--- NOTE | 2021-03-17 12:46 | PDOC2 ---
CONSULT Date of Consult Date of Consult DATE: 03/17/21 TIME: 12:32 Reason for Consult Reason for Consult: CHLOÉ Referring Physician Referring Physician: Riffel Identification/Chief Complaint Chief Complaint Renal failure Source Source: Chart review History of Present Illness Reason for Visit: Patient is a 70-year-old -I[place] female who was initially admitted to [facility] in December with Covid pneumonitis and acute hypoxic respiratory failure. Hospital course has been reviewed and the infectious disease specialist note. It appears that she failed to wean from the ventilator and eventually received a tracheostomy and PEG tube placement and was transferred to [facility] for ventilator weaning. While at [facility] there continues to be issues with vent weaning. She underwent bronchoscopy and is found to have positive cultures with progression of her infiltrates on CT scan. Through this time her creatinine is gone up also and she was transferred to [facility] for more definitive renal care. She is on the ventilator via her trach sedated and I am unable to get much in terms of history from her. It is unclear to me if she has received any nephrotoxic medications at [facility] but there is a suspicion for amphotericin administration.(Number of doses not known). It is reported that her has been somewhat directive in her care. Initially transfer back to [place] and/or a tertiary care center was recommended however get out of ER beds and hence she is admitted here. We have been asked to see her for her renal insufficiency. Urine output is minimal. She currently remains on pressors. She is currently being ventilated via her tracheostomy on the vent with a most recent blood gas of 7.1 /107 bicarb of 23 FiO2 100% and a PEEP of 12-15 . Past Medical History Past Medical History Reviewed as documented by other providers: PAST MEDICAL HISTORY: Asthma; obstructive sleep apnea, on CPA; GERD; left total knee arthroplasty; osteoarthritis; acute hypoxic respiratory failure secondary to sepsis and COVID-19 pneumonia at [facility] on 12/25/2020, status post difficulty weaning off ventilator, status post trach and PEG tube placement. Her outside hospital course was complicated with upper GI bleed and endoscopy revealing gastric ulcers, severe esophagitis and H. pylori gastritis. She also had thrombocytopenia. She did have MRSA in the sputum at one time and Corine in the sputum and urine culture. She had diarrhea. C. diff was reported negative at outside hospital and at [facility]. AFib with RVR and had been on amiodarone and diltiazem, hyperlipidemia, chronic pain. Cardiovascular: Hyperlipidemia Pulmonary: Asthma Past Surgical History Past Surgical History PAST SURGICAL HISTORY: As above, right rotator cuff repair, left carpal tunnel release, left total knee arthroplasty. Past Surgical History: Total knee replacement (left) Family History Family History Unable to be obtained from the patient and is probably noncontributory to current issues Family History: High Cholestrol Social History No ALCOHOL: none Drugs: None Current Problem List Problem List Problems Medical Problems: (1) Anemia Status: Acute (2) Chronic respiratory failure Status: Acute (3) CKD (chronic kidney disease) Status: Acute (4) History of COVID-19 Status: Acute (5) PNA (pneumonia) Status: Acute Current Medications Current Medications Current Medications Midazolam HCl (Versed) 2 mg STK-MED ONCE .ROUTE ; Start 03/16/21 at 13:52; S top 03/16/21 at 13:53; Status DC Dexmedetomidine HCl 400 mcg/ Sodium Chloride 100 ml @ 0 mls/hr CONT PRN IV PER PROTOCOL Last administered on 03/17/21at 11:40; Start 03/16/21 at 14:00 Sodium Chloride 500 ml @ 500 mls/hr 1X PRN PRN IV SEE COMMENTS; Start 03/16/21 at 14:00 Atropine Sulfate (ATROPINE 0.5mg SYRINGE) 0.5 mg PRN Q5MIN PRN IV SEE COMMENTS; Start 03/16/21 at 14:00 Norepinephrine Bitartrate 8 mg/ Dextrose 258 ml @ 27.864 mls/ hr 1X ONCE IV Last administered on 03/16/21at 14:13; Start 03/16/21 at 14:00; Stop 03/16/21 at 23:15; Status DC Midazolam HCl (Versed) 2 mg 1X ONCE IVP Last administered on 03/16/21at 13:58; Start 03/16/21 at 14:00; Stop 03/16/21 at 14:01; Status DC Calcium Gluconate (Calcium Gluconate) 1,000 mg 1X ONCE IVP Last administered on 03/16/21at 15:01; Start 03/16/21 at 14:45; Stop 03/16/21 at 14:46; Status DC Midazolam HCl (Versed) 5 mg 1X ONCE NS Last administered on 03/16/21at 14:41; Start 03/16/21 at 14:45; Stop 03/16/21 at 14:46; Status DC Midazolam HCl 100 ml @ 1 mls/hr CONT PRN IV SEE PROTOCOL Last administered on 03/17/21at 01:54; Start 03/16/21 at 15:00 Propofol 100 ml @ As Directed STK-MED ONCE IV ; Start 03/16/21 at 14:55; Stop 03/16/21 at 14:55; Status DC Acetaminophen (Tylenol) 650 mg PRN Q4HRS PRN PO FEVER > 100.3'F; Start 03/16/21 at 16:30; Stop 03/17/21 at 16:29 Nitroglycerin (Nitrostat) 0.4 mg PRN Q5MIN PRN SL CHEST PAIN; Start 03/16/21 at 16:30; Stop 03/17/21 at 16:29 Fentanyl Citrate 30 ml @ 0 mls/hr CONT PRN IV SEE PROTOCOL Last administered on 03/17/21at 11:39; Start 03/16/21 at 18:00 Vecuronium [place] (Norcuron Bolus) 10 mg 1X ONCE IV Last administered on 03/16/21at 18:06; Start 03/16/21 at 18:00; Stop 03/16/21 at 18:01; Status DC Meropenem 500 mg/ Sodium Chloride 50 ml @ 100 mls/hr Q8H IV Last administered on 03/17/21at 04:12; Start 03/16/21 at 20:00; Stop 03/17/21 at 04:30; Status DC Linezolid/Dextrose 300 ml @ 300 mls/hr Q12HR IV Last administered on 03/17/21at 09:38; Start 03/16/21 at 21:00 Micafungin Sodium 100 mg/Dextrose 100 ml @ 100 mls/hr Q24H IV Last administered on 03/16/21at 23:49; Start 03/16/21 at 22:00 Pharmacy Consult (C.diff Med Screen By Rx) 1 each 1X ONCE MC ; Start 03/16/21 at 23:45; Stop 03/16/21 at 23:46; Status DC Albuterol/ Ipratropium (Duoneb) 3 ml QID NEB Last administered on 03/17/21at 11:22; Start 03/17/21 at 09:00 Metoprolol Tartrate (Lopressor) 25 mg BID PO ; Start 03/17/21 at 09:00 Polyethylene Glycol (miraLAX PACKET) 17 gm DAILY PO Last administered on 03/17/21at 09:35; Start 03/17/21 at 09:00 Amiodarone HCl (Cordarone) 200 mg DAILY PO Last administered on 03/17/21at 09:34; Start 03/17/21 at 09:00 Pantoprazole Sodium (Protonix) 40 mg DAILYAC PO ; Start 03/17/21 at 07:30; Status Cancel Insulin Human Lispro (HumaLOG) 0-9 UNITS Q6HRS SQ ; Start 03/17/21 at 06:00 Dextrose (Dextrose 50%-Water Syringe) 12.5 gm PRN Q15MIN PRN IV SEE COMMENTS; Start 03/17/21 at 02:45 Meropenem 500 mg/ Sodium Chloride 50 ml @ 100 mls/hr Q8HRS IV ; Start 03/17/21 at 14:00 Heparin Sodium (Porcine) (Heparin Sodium) 5,000 unit Q8HRS SQ Last administered on 03/17/21at 06:15; Start 03/17/21 at 06:00 Lansoprazole (Prevacid) 30 mg DAILY07 PEG Last administered on 03/17/21at 09:57; Start 03/17/21 at 09:00 Norepinephrine Bitartrate 8 mg/ Dextrose 258 ml @ 26.703 mls/ hr CONT PRN IV PER PROTOCOL Last administered on 03/17/21at 09:58; Start 03/17/21 at 09:00 Active Scripts Active Reported Miralax (Polyethylene Glycol 3350) 17 Gm Powd.pack 1 Packet PO DAILY 2 Days dissolve in water Protonix Packet (Pantoprazole Sodium) 40 Mg Granpkt.dr 40 Mg PO DAILY Metoprolol Tartrate 25 Mg Tablet 1 Tab PO BID Methylprednisolone Sod Succ 40 Mg Vial 60 Mg IV BID Duoneb 0.5-3(2.5) Mg/3 Ml (Albuterol/Ipratropium) 3 Ml Ampul.neb 3 Ml NEB QID Humalog (Insulin Lispro) 100 Unit/1 Ml Vial 6 Unit SQ Q6HRS Humalog (Insulin Lispro) 100 Unit/1 Ml Cartridge 0-6 Unit SQ Q6HRS Lantus Solostar (Insulin Glargine,Hum.rec.anlog) 100 Unit/1 Ml Insuln.pen 14 Unit SQ BID Ferrous Sulfate 325 Mg Tablet 1 Tab PO BID Diltiazem Hcl Tablet (Diltiazem Hcl) 60 Mg Tablet 60 Mg PO QID Eliquis (Apixaban) 5 Mg Tablet 5 Mg PO DAILY [amphotericin] 650 Mg IV DAILY Amiodarone Hcl 400 Mg Tablet 1 Tab PO DAILY 30 Days Norepinephrine 8 mg/250 ml-D5w (Norepinephrine Bitartrate/D5w) 8 Mg/250 Ml Plast..bag 8 Mg IV PRN PRN Dexmedetomidin 400Mcg/100Ml-Ns (Dexmedetomidine in 0.9 % NaCl) 400 Mcg/100 Ml Infus..btl 400 Mcg IV PRN PRN Allergies Allergies: Coded Allergies: Antihistamines - Ethylenediamine (Verified Allergy, Intermediate, 03/16/21) aspirin (Verified Allergy, Intermediate, 03/16/21) fluconazole (Verified Allergy, Intermediate, 03/16/21) salmeterol (Verified Allergy, Intermediate, 03/16/21) ROS Review of System Unable to be obtained from the patient due to sedated state while on the ventilator via tracheostomy Physical Exam Physical Exam General Appearance: Patient is sedated and on the vent via tracheostomy Eyes: Sclera anicteric conjunctiva Normal EN: No EN Drainage Mucous Memb. Moist Neck: Unable to assess due to short thick neck, neck is otherwise supple , tracheostomy CVS: S1 S2 I was unable to hear an obvious murmur No Gallop No Rub possible trace edema Resp: Diffuse Rales occasional rhonchi no obvious Acc. Muscle use GI: BS +ve NO Bruit Non Tender Non Distended : no CVA tenderness; no Suprapubic Tenderness SKIN: No obvious visible rashes Breast Exam deferred Mu.Sk: Appears to have foot drop on the left with some muscle Atrophy Heme: Unable to palpate Obvious LAD I was unable to palpate any splenomegaly NEURO: Unable to assess while sedated on the ventilator via tracheostomy Psych: Unable to assess while sedated on the ventilator via tracheostomy Vital Signs Vital Signs Date Time Temp Pulse Resp B/P (MAP) Pulse Ox O2 Delivery O2 Flow Rate FiO2 03/17/21 11:00 100 Ventilator 03/17/21 10:00 75 22 125/49 03/17/21 04:00 96.6 96.6 03/16/21 18:08 15.0 Assessment & Plan Acute kidney injury: Possible ATN. Multifactorial. Will check CPK. Presence of granular casts to suggest likelihood of intravascular volume depletion. Do not feel dialysis is imminent at this time unless felt to have a fluid component to her respiratory failure. Given marginal pressures, it will be challenging to ultrafiltrate her anyways. A line will be placed and we will be standing by for the same. Still intravascular volume depletion: We will need to be cautious with volume repletion especially given current respiratory status Hypotension: Possibly due to severe acidosis. Marginal hyperkalemia presumably due to severe acidosis. Anticipate this to improve and acidosis corrects with IV bicarb Severe hypoalbuminemia: Patient to start tube feeds with Nepro Hyperphosphatemia presentation: Continue with Nepro for now Significant anemia: Given recent Covid pneumonitis have not started Epogen at this time Possible sepsis cannot be ruled out with ongoing bandemia. Will defer to infec tious disease specialist to manage antibiotics. Lactate is normal Respiratory acidosis despite being on the ventilator on high FiO2's. Will defer to funeral service licensee. This may be contributing to hypotension hence IV bicarb will be administered to get pH closer to 7.2-7.25 range Marginal hypocalcemia appears to have improved currently COVID-19 pneumonitis now CNI status Labs Labs Laboratory Tests Test 03/16/21 14:21 03/16/21 16:11 03/16/21 20:02 03/17/21 06:30 White Blood Count 18.4 x10^3/uL (4.0-11.0) 17.1 x10^3/uL (4.0-11.0) Red Blood Count 2.62 x10^6/uL (3.50-5.40) 2.51 x10^6/uL (3.50-5.40) Hemoglobin 7.7 g/dL (12.0-15.5) 7.2 g/dL (12.0-15.5) Hematocrit 23.7 % (36.0-47.0) 23.1 % (36.0-47.0) Mean Corpuscular Volume 91 fL (79-100) 92 fL (79-100) Mean Corpuscular Hemoglobin 29 pg (25-35) 29 pg (25-35) Mean Corpuscular Hemoglobin Concent 32 g/dL (31-37) 31 g/dL (31-37) Red Cell Distribution Width 24.8 % (11.5-14.5) 24.5 % (11.5-14.5) Platelet Count 147 x10^3/uL (140-400) 143 x10^3/uL (140-400) Neutrophils (%) (Auto) 91 % (31-73) 89 % (31-73) Lymphocytes (%) (Auto) 5 % (24-48) 7 % (24-48) Monocytes (%) (Auto) 3 % (0-9) 4 % (0-9) Eosinophils (%) (Auto) 0 % (0-3) 0 % (0-3) Basophils (%) (Auto) 1 % (0-3) 0 % (0-3) Neutrophils # (Auto) 16.9 x10^3/uL (1.8-7.7) 15.1 x10^3/uL (1.8-7.7) Lymphocytes # (Auto) 0.9 x10^3/uL (1.0-4.8) 1.3 x10^3/uL (1.0-4.8) Monocytes # (Auto) 0.6 x10^3/uL (0.0-1.1) 0.7 x10^3/uL (0.0-1.1) Eosinophils # (Auto) 0.0 x10^3/uL (0.0-0.7) 0.0 x10^3/uL (0.0-0.7) Basophils # (Auto) 0.1 x10^3/uL (0.0-0.2) 0.1 x10^3/uL (0.0-0.2) Segmented Neutrophils % 81 % (35-66) Band Neutrophils % 10 % (0-9) Lymphocytes % 8 % (24-48) Monocytes % 1 % (0-10) Nucleated Red Blood Cells 2 Platelet Estimate Adequate (ADEQUATE) Polychromasia Slight Poikilocytosis Slight Basophilic Stippling Present Anisocytosis Mod Tear Drop Cells Occ Ovalocytes Present Prothrombin Time 17.0 SEC (11.7-14.0) Prothromb Time International Ratio 1.4 (0.8-1.1) Activated Partial Thromboplast Time 30 SEC (24-38) Sodium Level 133 mmol/L (136-145) 134 mmol/L (136-145) Potassium Level 5.3 mmol/L (3.5-5.1) 5.3 mmol/L (3.5-5.1) Chloride Level 96 mmol/L (98-107) 97 mmol/L (98-107) Carbon Dioxide Level 27 mmol/L (21-32) 24 mmol/L (21-32) Anion Gap 10 (6-14) 13 (6-14) Blood Urea Nitrogen 82 mg/dL (7-20) 94 mg/dL (7-20) Creatinine 2.3 mg/dL (0.6-1.0) 2.5 mg/dL (0.6-1.0) Estimated GFR (Cockcroft-Gault) 21.1 19.2 BUN/Creatinine Ratio 36 (6-20) Glucose Level 241 mg/dL (70-99) 170 mg/dL (70-99) Lactic Acid Level 0.8 mmol/L (0.4-2.0) Calcium Level 7.7 mg/dL (8.5-10.1) 8.1 mg/dL (8.5-10.1) Phosphorus Level 6.7 mg/dL (2.6-4.7) Magnesium Level 2.1 mg/dL (1.8-2.4) Total Bilirubin 0.8 mg/dL (0.2-1.0) Aspartate Amino Transf (AST/SGOT) 25 U/L (15-37) Alanine Aminotransferase (ALT/SGPT) 37 U/L (14-59) Alkaline Phosphatase 81 U/L (46-116) HU-Igl-E-Type Natriuretic Peptide 7349 pg/mL (0-124) Total Protein 5.7 g/dL (6.4-8.2) Albumin 2.0 g/dL (3.4-5.0) Albumin/Globulin Ratio 0.5 (1.0-1.7) Urine Collection Type Unknown Urine Color Yellow Urine Clarity Cloudy Urine pH 5.5 (<5.0-8.0) Urine Specific [place] 1.020 (1.000-1.030) Urine Protein 100 mg/dL (NEG-TRACE) Urine Glucose (UA) Negative mg/dL (NEG) Urine Ketones (Stick) Negative mg/dL (NEG) Urine Blood Large (NEG) Urine Nitrite Negative (NEG) Urine Bilirubin Negative (NEG) Urine Urobilinogen Dipstick 0.2 mg/dL (0.2 mg/dL) Urine Leukocyte Esterase Moderate (NEG) Urine RBC 11-20 /HPF (0-2) Urine WBC 20-40 /HPF (0-4) Urine Squamous Epithelial Cells Few /LPF Urine Renal Epithelial Cells Few /LPF Urine Bacteria Few /HPF (0-FEW) Urine Granular Casts Moderate /HPF O2 Saturation 96 % (92-99) Arterial Blood pH 7.16 (7.35-7.45) Arterial Blood pCO2 at Patient Temp 73 mmHg (35-46) Arterial Blood pO2 at Patient Temp 109 mmHg (65-108) Arterial Blood HCO3 25 mmol/L (21-28) Arterial Blood Base Excess -4 mmol/L (-3-3) FiO2 100 Test 03/17/21 07:10 O2 Saturation 97 % (92-99) Arterial Blood pH 7.18 (7.35-7.45) Arterial Blood pCO2 at Patient Temp 63 mmHg (35-46) Arterial Blood pO2 at Patient Temp 107 mmHg (65-108) Arterial Blood HCO3 23 mmol/L (21-28) Arterial Blood Base Excess -5 mmol/L (-3-3) FiO2 100 Laboratory Tests Test 03/16/21 14:21 03/16/21 16:11 03/16/21 20:02 03/17/21 06:30 White Blood Count 18.4 x10^3/uL (4.0-11.0) 17.1 x10^3/uL (4.0-11.0) Red Blood Count 2.62 x10^6/uL (3.50-5.40) 2.51 x10^6/uL (3.50-5.40) Hemoglobin 7.7 g/dL (12.0-15.5) 7.2 g/dL (12.0-15.5) Hematocrit 23.7 % (36.0-47.0) 23.1 % (36.0-47.0) Mean Corpuscular Volume 91 fL (79-100) 92 fL (79-100) Mean Corpuscular Hemoglobin 29 pg (25-35) 29 pg (25-35) Mean Corpuscular Hemoglobin Concent 32 g/dL (31-37) 31 g/dL (31-37) Red Cell Distribution Width 24.8 % (11.5-14.5) 24.5 % (11.5-14.5) Platelet Count 147 x10^3/uL (140-400) 143 x10^3/uL (140-400) Neutrophils (%) (Auto) 91 % (31-73) 89 % (31-73) Lymphocytes (%) (Auto) 5 % (24-48) 7 % (24-48) Monocytes (%) (Auto) 3 % (0-9) 4 % (0-9) Eosinophils (%) (Auto) 0 % (0-3) 0 % (0-3) Basophils (%) (Auto) 1 % (0-3) 0 % (0-3) Neutrophils # (Auto) 16.9 x10^3/uL (1.8-7.7) 15.1 x10^3/uL (1.8-7.7) Lymphocytes # (Auto) 0.9 x10^3/uL (1.0-4.8) 1.3 x10^3/uL (1.0-4.8) Monocytes # (Auto) 0.6 x10^3/uL (0.0-1.1) 0.7 x10^3/uL (0.0-1.1) Eosinophils # (Auto) 0.0 x10^3/uL (0.0-0.7) 0.0 x10^3/uL (0.0-0.7) Basophils # (Auto) 0.1 x10^3/uL (0.0-0.2) 0.1 x10^3/uL (0.0-0.2) Segmented Neutrophils % 81 % (35-66) Band Neutrophils % 10 % (0-9) Lymphocytes % 8 % (24-48) Monocytes % 1 % (0-10) Nucleated Red Blood Cells 2 Platelet Estimate Adequate (ADEQUATE) Polychromasia Slight Poikilocytosis Slight Basophilic Stippling Present Anisocytosis Mod Tear Drop Cells Occ Ovalocytes Present Prothrombin Time 17.0 SEC (11.7-14.0) Prothromb Time International Ratio 1.4 (0.8-1.1) Activated Partial Thromboplast Time 30 SEC (24-38) Sodium Level 133 mmol/L (136-145) 134 mmol/L (136-145) Potassium Level 5.3 mmol/L (3.5-5.1) 5.3 mmol/L (3.5-5.1) Chloride Level 96 mmol/L (98-107) 97 mmol/L (98-107) Carbon Dioxide Level 27 mmol/L (21-32) 24 mmol/L (21-32) Anion Gap 10 (6-14) 13 (6-14) Blood Urea Nitrogen 82 mg/dL (7-20) 94 mg/dL (7-20) Creatinine 2.3 mg/dL (0.6-1.0) 2.5 mg/dL (0.6-1.0) Estimated GFR (Cockcroft-Gault) 21.1 19.2 BUN/Creatinine Ratio 36 (6-20) Glucose Level 241 mg/dL (70-99) 170 mg/dL (70-99) Lactic Acid Level 0.8 mmol/L (0.4-2.0) Calcium Level 7.7 mg/dL (8.5-10.1) 8.1 mg/dL (8.5-10.1) Phosphorus Level 6.7 mg/dL (2.6-4.7) Magnesium Level 2.1 mg/dL (1.8-2.4) Total Bilirubin 0.8 mg/dL (0.2-1.0) Aspartate Amino Transf (AST/SGOT) 25 U/L (15-37) Alanine Aminotransferase (ALT/SGPT) 37 U/L (14-59) Alkaline Phosphatase 81 U/L (46-116) WY-Fqu-J-Type Natriuretic Peptide 7349 pg/mL (0-124) Total Protein 5.7 g/dL (6.4-8.2) Albumin 2.0 g/dL (3.4-5.0) Albumin/Globulin Ratio 0.5 (1.0-1.7) Urine Collection Type Unknown Urine Color Yellow Urine Clarity Cloudy Urine pH 5.5 (<5.0-8.0) Urine Specific [place] 1.020 (1.000-1.030) Urine Protein 100 mg/dL (NEG-TRACE) Urine Glucose (UA) Negative mg/dL (NEG) Urine Ketones (Stick) Negative mg/dL (NEG) Urine Blood Large (NEG) Urine Nitrite Negative (NEG) Urine Bilirubin Negative (NEG) Urine Urobilinogen Dipstick 0.2 mg/dL (0.2 mg/dL) Urine Leukocyte Esterase Moderate (NEG) Urine RBC 11-20 /HPF (0-2) Urine WBC 20-40 /HPF (0-4) Urine Squamous Epithelial Cells Few /LPF Urine Renal Epithelial Cells Few /LPF Urine Bacteria Few /HPF (0-FEW) Urine Granular Casts Moderate /HPF O2 Saturation 96 % (92-99) Arterial Blood pH 7.16 (7.35-7.45) Arterial Blood pCO2 at Patient Temp 73 mmHg (35-46) Arterial Blood pO2 at Patient Temp 109 mmHg (65-108) Arterial Blood HCO3 25 mmol/L (21-28) Arterial Blood Base Excess -4 mmol/L (-3-3) FiO2 100 Test 03/17/21 07:10 O2 Saturation 97 % (92-99) Arterial Blood pH 7.18 (7.35-7.45) Arterial Blood pCO2 at Patient Temp 63 mmHg (35-46) Arterial Blood pO2 at Patient Temp 107 mmHg (65-108) Arterial Blood HCO3 23 mmol/L (21-28) Arterial Blood Base Excess -5 mmol/L (-3-3) FiO2 100 Review All relevant outside records, renal labs, imaging studies, telemetry/EKG's were reviewed. Images Images IMPRESSION: 1. Severe bilateral interstitial and alveolar infiltrates. Findings consistent with severe Covid 19 pneumonia 2. Tracheostomy tube noted. HUMAIRA KELLY MD Mar 17, 2021 12:46
[2021-03-17] MEDS: VECURONIUM BOLUS 10 MG VIAL. IV PRN ×2 (12:57→17:19)
[2021-03-17] MEDS ORDERED: LIDOCAINE WITH 8.4% SOD BICARB 3 ML DISP.SYRIN. ONE (13:01)
[2021-03-17] MEDS ORDERED: LIDOCAINE WITH 8.4% SOD BICARB 3 ML DISP.SYRIN. INJ ONE (13:30)
[2021-03-17 13:57] LABS: CALCIUM 7.8 mg/dL (8.5-10.1); CREATININE 2.6 mg/dL (0.6-1.0); GFR 18.3
--- NOTE | 2021-03-17 14:25 | RAD ---
EXAM: Chest, single view. HISTORY: Line placement. COMPARISON: 03/16/2021 FINDINGS: A frontal view of the chest is obtained. There is a right internal jugular catheter with th e tip overlying the expected position of the superior right atrium. There is no pneumothorax. There i s a tracheostomy device in expected position. There is stable diffuse infiltrate and suspected small pleural effusions. There has been incidental distal left clavicle resection. IMPRESSION: 1. Right internal jugular catheter with the tip overlying expected location of the superior right atr ium. 2. Stable diffuse infiltrate and small pleural effusions. Electronically signed by: Trish Mcmahon MD (03/17/2021 2:22 PM) [id number]
--- NOTE | 2021-03-17 14:54 | RAD ---
Procedure: Ultrasound-guided placement of a right internal jugular temporary hemodialysis catheter Sterility: All elements of maximal sterile barrier technique including the use of a cap, mask, steril e gown, sterile gloves, large sterile sheet, appropriate hand hygiene, and 2% chlorhexidine for cutan eous antisepsis (or acceptable alternative antiseptic per current guidelines) were followed for this procedure. Consent: The procedure was explained in its entirety to the patient or the patients designated repres entative by a member of the treatment team, including a discussion of the risks, benefits and commonl y accepted alternatives to the procedure, as well as the expected consequences of no therapy whatsoev er. Discussion of the risks included, but was not limited to, those that are most frequent and thos e that are rare but possibly severe or life-threatening, as well as the possibility of unforeseen com plications. Technique and Findings: Following informed consent, the patient was prepped and draped in the usual s terile fashion. Ultrasound interrogation of the right neck revealed patency and compressibility of t he right internal jugular vein. A 21-gauge micropuncture was then used to gain access to this vein u nder ultrasound guidance. A hard copy ultrasound image was recorded. A guidewire was advanced centra lly over which, following dilatation, a temporary dialysis catheter was placed. The new catheter wa s found to flush and aspirate normally. The catheter was secured in place. Sterile dressings were andrea lied. No immediate complications were identified. IMPRESSION: Ultrasound-guided placement of right internal jugular temporary dialysis catheter Electronically signed by: Ezekiel Capone MD (03/17/2021 2:52 PM) [id number]
[2021-03-17] MEDS: fentaNYL HIGH DOSE PCA 55 ML IV PRN (17:54)
--- NOTE | 2021-03-17 18:03 | NUR ---
Wound Care Attempted to see pt for wound consultation, spoke with RADHA Walters and pictures reviewed, as pt was too unstable to turn. Left foot blood blister appears to be intact, Aquacel foam had been applied. Buttocks and perirectal areas with clusters of denuded skin, could possibly be from herpes, does not appear to be pressure due to appearance and location, recommend PCP to assess for possible systemic antiviral, recommend drying the open areas with Nystatin powder mixed with Calazime BID. Will f/u next week for reevaluation.
--- NOTE | 2021-03-17 18:20 | CARD ---
MR#: [id number] Date of Study: 03/17/2021 Ordering Physician: HUMAIRA KELLY, Referring Physician: Josh KANG: Shola Cuellar [facility] APPROVED REPORT EXAM: Two-dimensional and M-mode echocardiogram with Doppler and color Doppler. Other Information Quality : AverageHR: 97bpm Rhythm : Atrial Fibrillation INDICATION Dyspnea Covid Pneumonia RISK FACTORS Hypertension Obesity Hyperlipidemia Diabetes 2D DIMENSIONS Left Atrium(2D)3.5 (1.6-4.0cm)IVSd1.4 (0.7-1.1cm) Aortic Root(2D)3.3 (2.0-3.7cm)LVDd4.5 (3.9-5.9cm) PWd1.2 (0.7-1.1cm)LVDs2.6 (2.5-4.0cm) FS (%) 43.5 %SV70.4 ml Aortic Valve AoV Peak Corby.143.1cm/sAoV VTI22.2cm AO Peak GR.8.2mmHgLVOT Peak Corby.114.8cm/s AO Mean GR.5mmHg Mitral Valve MV E Ewzcaqvy43.8cm/sMV E Peak Gr.5mmHg MV DECEL [id number] A Kpbojsjg65.2cm/s MV E Mean Gr.2mmHgE/A Ratio1.5 Pulmonary Valve PV Peak Yujqbuhx677.4cm/s Tricuspid Valve TR P. Edkwruiz479td/sTR Peak Gr.50mmHg Pulmonary Vein S1 Cfjzhdpv62.7cm/sD2 Kwgesisn41.5cm/s LEFT VENTRICLE The left ventricle is normal size. There is borderline to mild concentric left ventricular hypertroph y. The left ventricular systolic function is normal and the ejection fraction is within normal range. LV ejection fraction is 55 to 60%. There is normal LV segmental wall motion. No left ventricle throm bus noted on this study. There is no ventricular septal defect visualized. There is no left ventricul ar aneurysm. There is no mass noted in the left ventricle. RIGHT VENTRICLE The right ventricle is normal size. There is normal right ventricular wall thickness. The right ventr icular systolic function is normal. ATRIA The left atrium is mildly dilated. The right atrium size is normal. The interatrial septum is intact with no evidence for an atrial septal defect or patent foramen ovale as noted on 2-D or Doppler imagi ng. AORTIC VALVE The aortic valve is normal in structure and function. The aortic valve is trileaflet. Doppler and Col or Flow revealed no significant aortic regurgitation. There is no significant aortic valvular stenosi s. There is no aortic valvular vegetation. MITRAL VALVE Mitral annular calcification is borderline. There is no evidence of mitral valve prolapse. There is n o mitral valve stenosis. Doppler and Color-flow revealed trace to mild mitral regurgitation. TRICUSPID VALVE The tricuspid valve is normal in structure and function. Doppler and Color Flow revealed mild tricusp id regurgitation. The PA pressure was estimated at 50 mmHg. There is no tricuspid valve prolapse or v egetation. There is no tricuspid valve stenosis. PULMONIC VALVE Doppler and Color Flow revealed no pulmonic valvular regurgitation. There is no pulmonic valvular geni nosis. GREAT VESSELS The aortic root is normal in size. The ascending aorta is normal in size. The IVC is mildly dilated w ith blunted inspiratory response. PERICARDIAL EFFUSION There is no evidence of significant pericardial effusion. Critical Notification Critical Value: No <Conclusion> The left ventricle is normal size. The left ventricular systolic function is normal and the ejection fraction is within normal range. LV ejection fraction is 55 to 60%. There is borderline to mild concentric left ventricular hypertrophy. Doppler and Color Flow revealed no significant aortic regurgitation. There is no significant aortic valvular stenosis. Doppler and Color-flow revealed trace to mild mitral regurgitation. Doppler and Color Flow revealed mild tricuspid regurgitation. The PA pressure was estimated at 50 mmHg. Signed by : Sadiq Nur MD Electronically Approved : 03/17/2021 18:19:57
[2021-03-17] MEDS: NOREPINEPHRINE VIAL 32 MG in IV D5W 250ML IV PRN (21:14)
[2021-03-17] MEDS: MICAFUNGIN 100 MG in IV DEXTROSE 5% 100ML 100 ML IV SCH (23:18)
[2021-03-18] VITALS (29 sets, daily range): BP systolic 73–116; BP diastolic 45–65
[2021-03-18] MEDS: DEXMEDETOMIDINE 400 MCG in IV NORMAL SALINE 100ML 96 ML IV PRN ×10 (02:15→23:58)
[2021-03-18] MEDS: MIDAZOLAM 100mg/100ml NS BAG 100 ML IV PRN (02:51)
--- NOTE | 2021-03-18 05:28 | PDOC ---
PULMONARY PROGRESS NOTES DATE: 03/18/21 TIME: 05:27 Subjective trach has leak peep 14 fio2 100% on leve precedex versed fentanyl vec prn vas cath was placed Vitals Vital Signs Date Time Temp Pulse Resp B/P (MAP) Pulse Ox O2 Delivery O2 Flow Rate FiO2 03/18/21 02:30 92 Ventilator 03/18/21 00:00 97.3 110 20 100/52 97.3 03/17/21 18:24 15.0 Comments on vent trach noise around trach leak sedated NC AT irreg irreg no accessory muscle use obese no rash Labs Laboratory Tests Test 03/16/21 14:21 03/16/21 16:11 03/16/21 20:02 03/17/21 06:30 White Blood Count 18.4 x10^3/uL (4.0-11.0) 17.1 x10^3/uL (4.0-11.0) Red Blood Count 2.62 x10^6/uL (3.50-5.40) 2.51 x10^6/uL (3.50-5.40) Hemoglobin 7.7 g/dL (12.0-15.5) 7.2 g/dL (12.0-15.5) Hematocrit 23.7 % (36.0-47.0) 23.1 % (36.0-47.0) Mean Corpuscular Volume 91 fL (79-100) 92 fL (79-100) Mean Corpuscular Hemoglobin 29 pg (25-35) 29 pg (25-35) Mean Corpuscular Hemoglobin Concent 32 g/dL (31-37) 31 g/dL (31-37) Red Cell Distribution Width 24.8 % (11.5-14.5) 24.5 % (11.5-14.5) Platelet Count 147 x10^3/uL (140-400) 143 x10^3/uL (140-400) Neutrophils (%) (Auto) 91 % (31-73) 89 % (31-73) Lymphocytes (%) (Auto) 5 % (24-48) 7 % (24-48) Monocytes (%) (Auto) 3 % (0-9) 4 % (0-9) Eosinophils (%) (Auto) 0 % (0-3) 0 % (0-3) Basophils (%) (Auto) 1 % (0-3) 0 % (0-3) Neutrophils # (Auto) 16.9 x10^3/uL (1.8-7.7) 15.1 x10^3/uL (1.8-7.7) Lymphocytes # (Auto) 0.9 x10^3/uL (1.0-4.8) 1.3 x10^3/uL (1.0-4.8) Monocytes # (Auto) 0.6 x10^3/uL (0.0-1.1) 0.7 x10^3/uL (0.0-1.1) Eosinophils # (Auto) 0.0 x10^3/uL (0.0-0.7) 0.0 x10^3/uL (0.0-0.7) Basophils # (Auto) 0.1 x10^3/uL (0.0-0.2) 0.1 x10^3/uL (0.0-0.2) Segmented Neutrophils % 81 % (35-66) Band Neutrophils % 10 % (0-9) Lymphocytes % 8 % (24-48) Monocytes % 1 % (0-10) Nucleated Red Blood Cells 2 Platelet Estimate Adequate (ADEQUATE) Polychromasia Slight Poikilocytosis Slight Basophilic Stippling Present Anisocytosis Mod Tear Drop Cells Occ Ovalocytes Present Prothrombin Time 17.0 SEC (11.7-14.0) Prothromb Time International Ratio 1.4 (0.8-1.1) Activated Partial Thromboplast Time 30 SEC (24-38) Sodium Level 133 mmol/L (136-145) 134 mmol/L (136-145) Potassium Level 5.3 mmol/L (3.5-5.1) 5.3 mmol/L (3.5-5.1) Chloride Level 96 mmol/L (98-107) 97 mmol/L (98-107) Carbon Dioxide Level 27 mmol/L (21-32) 24 mmol/L (21-32) Anion Gap 10 (6-14) 13 (6-14) Blood Urea Nitrogen 82 mg/dL (7-20) 94 mg/dL (7-20) Creatinine 2.3 mg/dL (0.6-1.0) 2.5 mg/dL (0.6-1.0) Estimated GFR (Cockcroft-Gault) 21.1 19.2 BUN/Creatinine Ratio 36 (6-20) Glucose Level 241 mg/dL (70-99) 170 mg/dL (70-99) Lactic Acid Level 0.8 mmol/L (0.4-2.0) Calcium Level 7.7 mg/dL (8.5-10.1) 8.1 mg/dL (8.5-10.1) Phosphorus Level 6.7 mg/dL (2.6-4.7) Magnesium Level 2.1 mg/dL (1.8-2.4) Total Bilirubin 0.8 mg/dL (0.2-1.0) Aspartate Amino Transf (AST/SGOT) 25 U/L (15-37) Alanine Aminotransferase (ALT/SGPT) 37 U/L (14-59) Alkaline Phosphatase 81 U/L (46-116) VN-Bfd-E-Type Natriuretic Peptide 7349 pg/mL (0-124) Total Protein 5.7 g/dL (6.4-8.2) Albumin 2.0 g/dL (3.4-5.0) Albumin/Globulin Ratio 0.5 (1.0-1.7) Urine Collection Type Unknown Urine Color Yellow Urine Clarity Cloudy Urine pH 5.5 (<5.0-8.0) Urine Specific [place] 1.020 (1.000-1.030) Urine Protein 100 mg/dL (NEG-TRACE) Urine Glucose (UA) Negative mg/dL (NEG) Urine Ketones (Stick) Negative mg/dL (NEG) Urine Blood Large (NEG) Urine Nitrite Negative (NEG) Urine Bilirubin Negative (NEG) Urine Urobilinogen Dipstick 0.2 mg/dL (0.2 mg/dL) Urine Leukocyte Esterase Moderate (NEG) Urine RBC 11-20 /HPF (0-2) Urine WBC 20-40 /HPF (0-4) Urine Squamous Epithelial Cells Few /LPF Urine Renal Epithelial Cells Few /LPF Urine Bacteria Few /HPF (0-FEW) Urine Granular Casts Moderate /HPF O2 Saturation 96 % (92-99) Arterial Blood pH 7.16 (7.35-7.45) Arterial Blood pCO2 at Patient Temp 73 mmHg (35-46) Arterial Blood pO2 at Patient Temp 109 mmHg (65-108) Arterial Blood HCO3 25 mmol/L (21-28) Arterial Blood Base Excess -4 mmol/L (-3-3) FiO2 100 Test 03/17/21 07:10 03/17/21 12:49 03/17/21 13:35 03/17/21 17:34 O2 Saturation 97 % (92-99) Arterial Blood pH 7.18 (7.35-7.45) Arterial Blood pCO2 at Patient Temp 63 mmHg (35-46) Arterial Blood pO2 at Patient Temp 107 mmHg (65-108) Arterial Blood HCO3 23 mmol/L (21-28) Arterial Blood Base Excess -5 mmol/L (-3-3) FiO2 100 Glucose (Fingerstick) 192 mg/dL (70-99) 179 mg/dL (70-99) Sodium Level 133 mmol/L (136-145) Potassium Level 5.0 mmol/L (3.5-5.1) Chloride Level 96 mmol/L (98-107) Carbon Dioxide Level 25 mmol/L (21-32) Anion Gap 12 (6-14) Blood Urea Nitrogen 94 mg/dL (7-20) Creatinine 2.6 mg/dL (0.6-1.0) Estimated GFR (Cockcroft-Gault) 18.3 Glucose Level 196 mg/dL (70-99) Calcium Level 7.8 mg/dL (8.5-10.1) Test 03/17/21 23:43 Glucose (Fingerstick) 247 mg/dL (70-99) Laboratory Tests Test 03/17/21 06:30 03/17/21 07:10 03/17/21 12:49 03/17/21 13:35 White Blood Count 17.1 x10^3/uL (4.0-11.0) Red Blood Count 2.51 x10^6/uL (3.50-5.40) Hemoglobin 7.2 g/dL (12.0-15.5) Hematocrit 23.1 % (36.0-47.0) Mean Corpuscular Volume 92 fL (79-100) Mean Corpuscular Hemoglobin 29 pg (25-35) Mean Corpuscular Hemoglobin Concent 31 g/dL (31-37) Red Cell Distribution Width 24.5 % (11.5-14.5) Platelet Count 143 x10^3/uL (140-400) Neutrophils (%) (Auto) 89 % (31-73) Lymphocytes (%) (Auto) 7 % (24-48) Monocytes (%) (Auto) 4 % (0-9) Eosinophils (%) (Auto) 0 % (0-3) Basophils (%) (Auto) 0 % (0-3) Neutrophils # (Auto) 15.1 x10^3/uL (1.8-7.7) Lymphocytes # (Auto) 1.3 x10^3/uL (1.0-4.8) Monocytes # (Auto) 0.7 x10^3/uL (0.0-1.1) Eosinophils # (Auto) 0.0 x10^3/uL (0.0-0.7) Basophils # (Auto) 0.1 x10^3/uL (0.0-0.2) Sodium Level 134 mmol/L (136-145) 133 mmol/L (136-145) Potassium Level 5.3 mmol/L (3.5-5.1) 5.0 mmol/L (3.5-5.1) Chloride Level 97 mmol/L (98-107) 96 mmol/L (98-107) Carbon Dioxide Level 24 mmol/L (21-32) 25 mmol/L (21-32) Anion Gap 13 (6-14) 12 (6-14) Blood Urea Nitrogen 94 mg/dL (7-20) 94 mg/dL (7-20) Creatinine 2.5 mg/dL (0.6-1.0) 2.6 mg/dL (0.6-1.0) Estimated GFR (Cockcroft-Gault) 19.2 18.3 Glucose Level 170 mg/dL (70-99) 196 mg/dL (70-99) Calcium Level 8.1 mg/dL (8.5-10.1) 7.8 mg/dL (8.5-10.1) O2 Saturation 97 % (92-99) Arterial Blood pH 7.18 (7.35-7.45) Arterial Blood pCO2 at Patient Temp 63 mmHg (35-46) Arterial Blood pO2 at Patient Temp 107 mmHg (65-108) Arterial Blood HCO3 23 mmol/L (21-28) Arterial Blood Base Excess -5 mmol/L (-3-3) FiO2 100 Glucose (Fingerstick) 192 mg/dL (70-99) Test 03/17/21 17:34 03/17/21 23:43 Glucose (Fingerstick) 179 mg/dL (70-99) 247 mg/dL (70-99) Medications Active Scripts Medications Dose Route/Sig Max Daily Dose Days Date Category Dose Instructions Miralax (Polyethylene Glycol 3350) 17 Gm Powd.pack 1 Packet PO DAILY 2 03/16/21 Reported dissolve in water Protonix Packet (Pantoprazole Sodium) 40 Mg Granpkt.dr 40 Mg PO DAILY 03/16/21 Reported Metoprolol Tartrate 25 Mg Tablet 1 Tab PO BID 03/16/21 Reported Methylprednisolone Sod Succ 40 Mg Vial 60 Mg IV BID 03/16/21 Reported Duoneb 0.5-3(2.5) Mg/3 Ml (Albuterol/Ipratropium) 3 Ml Ampul.neb 3 Ml NEB QID 03/16/21 Reported Humalog (Insulin Lispro) 100 Unit/1 Ml Vial 6 Unit SQ Q6HRS 03/16/21 Reported Humalog (Insulin Lispro) 100 Unit/1 Ml Cartridge 0-6 Unit SQ Q6HRS 03/16/21 Reported Lantus Solostar (Insulin Glargine,Hum.rec.anlog) 100 Unit/1 Ml Insuln.pen 14 Unit SQ BID 03/16/21 Reported Ferrous Sulfate 325 Mg Tablet 1 Tab PO BID 03/16/21 Reported Diltiazem Hcl Tablet (Diltiazem Hcl) 60 Mg Tablet 60 Mg PO QID 03/16/21 Reported Eliquis (Apixaban) 5 Mg Tablet 5 Mg PO DAILY 03/16/21 Reported [amphotericin] 650 Mg IV DAILY 03/16/21 Reported Amiodarone Hcl 400 Mg Tablet 1 Tab PO DAILY 30 03/16/21 Reported Norepinephrine 8 mg/250 ml-D5w (Norepinephrine Bitartrate/D5w) 8 Mg/250 Ml Plast..bag 8 Mg IV PRN PRN 03/16/21 Reported Dexmedetomidin 400Mcg/100Ml-Ns (Dexmedetomidine in 0.9 % NaCl) 400 Mcg/100 Ml Infus..btl 400 Mcg IV PRN PRN 03/16/21 Reported Comments cxr b lat infilt trach Impression . IMPRESSION: 1. Acute on chronic respiratory failure, multifactorial. 2. COVID-19 viral pneumonia, sepsis, acute respiratory distress syndrome, complicated with cryptococcal infection. 3. Cryptococcal pneumonia. 4. 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 5. Acute renal failure. 6. Septic shock. 7. Severe protein malnutrition, present upon admission. 8. Status post percutaneous endoscopic gastrostomy and trach. 9. Asthma. 10. Gastroesophageal reflux. 11. Obesity. 12. Chronic atrial fibrillation. The patient currently on amiodarone. Plan . PLAN: 1. cont vent support setting reviewed peep fio2 titration as tolerated abg reviewed increase rr to 28 will consult surgery has trach leak may need change 2. Continue antibiotics and amphotericin B per ID. 3. s/p Hemodialysis catheter 03/17 hd per nephro 4. Continue sedation. 5. DVT prophylaxis. 6. Nutritional support. 7. Monitor for any amiodarone-induced lung injury. 8. Titrate Levophed for mean arterial pressure above 60. prognosis poor discussed w eriberto wooten critically ill cct 30 min no overlap INDU MADRID MD Mar 18, 2021 05:28
[2021-03-18] MEDS: VECURONIUM BOLUS 10 MG VIAL. IV PRN ×3 (05:32→17:40)
[2021-03-18] MEDS: MEROPENEM 500 MG in IV NORMAL SALINE 50ML 50 ML IV SCH ×2 (05:36→13:59)
--- NOTE | 2021-03-18 06:15 | NUR ---
Patient unstable, requiring rapid titration of Levophed d/t sustained MAP <65 beginning at 0200. Starting rate at 0.21 mcg/kg/min and patient stabilized at 0600 with MAP 68 with Levophed gtt currently infusing at 0.4 mcg/kg/min; the max rate during this time was 0.4mcg/kg/min of medication administered during charting block which ended at 0600. (Max block time 4 hours.) Pt in Afib rhythm, HR 102, Spo2 78.
--- NOTE | 2021-03-18 07:26 | PDOC ---
[employer] PROGRESS NOTE Date of Service DOS: DATE: 03/18/21 TIME: 07:14 Chief Complaint Chief Complaint Acute on chronic combined hypoxic and hypercapnic respiratory failure - long difficult vent wean after COVID 19 with current cryptoccocal infection. Wean vent as tolerated. Consult pulm for assistance. Vent AC mode 20/550/14/100% with saturations 94%. Acute encephalopathy - likely hypoxic encephalopathy vs uremic and septic encephalopathy. Monitor mental status, wean sedation as tolerated. She has been on precedex for over a month Acute renal failure - multifactorial vasomotor nephropathy from sepsis, multiorgan system failure, hypoxia and possible ATN/AIN from nephrotoxic me dications necessary for cryptococcal infection treatment. Consult nephrology Septic shock - due to above infection. 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 (Vitaliy) is surrogate decision-maker. History of Present Illness History of Present Illness Ms Flores is a 70yo female with PMHx asthma, GERD, HLD, hypothyroidism, chronic pain, JOHAN on CPAP who comes to ED from [facility] for assessment of worsening renal failure. She has been treated at [facility] on a month long vent wean after a complicated COVID-19 hospital stay at [facility] where she underwent tracheostomy and PEG placement in December 2020. As of ~03/06/2021 last week per patient had been weaning down vent support PEEP of 5 and 55 to 60% FiO2. Because of her failure to progress she underwent bronchoscopy which, per physician at [facility] was positive for cryptococcus and patient was started on amphotericin B flucytosine Zosyn and Zyvox. This past Tuesday 03/13 some time around or after 7:00 AM patient had a significant worsening of her oxygen status and per since then she has been relatively unresponsive. Progressively increased ventilatory support and pressor support with Levophed and progressively worsening multiorgan system failure with elevated creatinine has been transferred out of [facility] for as sessment for renal failure consideration of renal replacement therapy WBC 18.4, Hb 7.7, platelets 147, INR 1.4, NA 133, K5.3, chloride 96, HCO3 27, BUN 82, CR 2.3, glucose 241 calcium 7.7, phosphorus 6.7, lactate 0.8 magnesium 2.1 bilirubin 0.8, AST 25 ALT 37, alkaline phosphatase 81, albumin 2, NT proBNP 7349, urinalysis with moderate leuk esterase large blood WBCs and RBCs as well as granular casts Chest radiograph with severe diffuse interstitial alveolar infiltrates and tracheostomy tube in place Vent AC mode 20/550/14/100% with saturations 94%. EKG sinus rhythm at 61 bpm, unremarkable intervals, left axis deviation, no acute ischemic findings, no ST elevation or TWI Discussed with Vitaliy bedside in ED. ED attempt transfer to [facility] no available beds Admitted to ICU on levophed GTT. 03/17: Afebrile, on vent with FiO2 100%, PEEP 14. Will follow nephrology rec ommendations. Continue fluconazole at this time; further antibiotics/antifungals, perID. No need for urgent dialysis at this time, potassium 5.0. Continue treatment for cryptococcus pneumonia. refusing lumbar puncture. 03/18: Afebrile, on vent with FiO2 20%, PEEP 14. Discussed with Dr. Johnson, concerned that trach cuff may need to be replaced. Will place consult to gener al surgery. Continue treatment with empiric meropenem, linezolid, and micafungin, per ID. No lumbar puncture planned at this time. No need for urgent hemodialysis. Critical care time 30 minutes spent reviewing charts, reviewing labs and imaging, discussion with Dr. Johnson and RN. Vitals/I&O Vitals/I&O: Vital Signs Date Time Temp Pulse Resp B/P (MAP) Pulse Ox O2 Delivery O2 Flow Rate FiO2 03/18/21 05:00 80 Ventilator 03/18/21 00:00 97.3 110 20 100/52 97.3 03/17/21 18:24 15.0 I & O 03/17/21 03/17/21 03/18/21 15:00 23:00 07:00 Intake Total 50 ml 1435 ml 459 ml Output Total 175 ml 275 ml 175 ml Balance -125 ml 1160 ml 284 ml Physical Exam General: mild distress, moderate distress, Other (Intubated and sedated) Heart: Regular rate Lungs: Crackles Abdomen: Normal bowel sounds, Other (PEG clean) Extremities: No clubbing, No cyanosis Skin: No significant lesion Labs Labs: Laboratory Tests Test 03/17/21 12:49 03/17/21 13:35 03/17/21 17:34 03/17/21 23:43 Glucose (Fingerstick) 192 mg/dL (70-99) 179 mg/dL (70-99) 247 mg/dL (70-99) Sodium Level 133 mmol/L (136-145) Potassium Level 5.0 mmol/L (3.5-5.1) Chloride Level 96 mmol/L (98-107) Carbon Dioxide Level 25 mmol/L (21-32) Anion Gap 12 (6-14) Blood Urea Nitrogen 94 mg/dL (7-20) Creatinine 2.6 mg/dL (0.6-1.0) Estimated GFR (Cockcroft-Gault) 18.3 Glucose Level 196 mg/dL (70-99) Calcium Level 7.8 mg/dL (8.5-10.1) Assessment and Plan Assessmemt and Plan Problems Medical Problems: (1) Anemia Status: Acute (2) Chronic respiratory failure Status: Acute (3) CKD (chronic kidney disease) Status: Acute (4) History of COVID-19 Status: Acute (5) PNA (pneumonia) Status: Acute Comment Review of Relevant I have reviewed the following items candice (where applicable) has been applied. Medications: Current Medications Medications (Trade) Dose Ordered Sig/[place] Route PRN Reason Start Time Stop Time Status Last Admin Dose Admin Albuterol/ Ipratropium (Duoneb) 3 ml QID NEB 03/17/21 09:00 03/17/21 20:11 Polyethylene Glycol (miraLAX PACKET) 17 gm DAILY PO 03/17/21 09:00 03/17/21 09:35 Amiodarone HCl (Cordarone) 200 mg DAILY PO 03/17/21 09:00 03/17/21 09:34 Meropenem 500 mg/ Sodium Chloride 50 ml @ 100 mls/hr Q8HRS IV 03/17/21 14:00 03/18/21 05:36 Lansoprazole (Prevacid) 30 mg DAILY07 PEG 03/17/21 09:00 03/17/21 09:57 Norepinephrine Bitartrate 8 mg/ Dextrose 258 ml @ 26.703 mls/ hr CONT PRN IV PER PROTOCOL 03/17/21 09:00 03/17/21 20:36 DC 03/17/21 15:22 Sodium Bicarbonate (Sodium Bicarb Adult 8.4% Syr) 150 meq 1X ONCE IV 03/17/21 12:30 03/17/21 12:32 DC 03/17/21 12:58 Vecuronium [place] (Norcuron Bolus) 6 mg PRN Q4HRS PRN IV VENTILATOR COMPLIANCE 03/17/21 12:45 03/18/21 05:32 Lidocaine HCl (Buffered Lidocaine 1%) 3 ml 1X ONCE INJ 03/17/21 13:30 03/17/21 13:31 DC 03/17/21 13:22 Fentanyl Citrate 55 ml @ 0 mls/hr CONT PRN IV SEE PROTOCOL 03/17/21 17:00 03/17/21 17:54 Norepinephrine Bitartrate 32 mg/ Dextrose 250 ml @ 6.464 mls/ hr CONT PRN IV SEE I/O RECORD 03/17/21 20:45 03/17/21 21:14 Justifications for Admission Other Justification BISI GILLESPIE MD Mar 18, 2021 07:26
[2021-03-18] MEDS: HEPARIN for SUB-Q USE 5,000 UNIT/ML VIAL. SQ SCH ×3 (07:36→21:42)
[2021-03-18] MEDS: LANSOPRAZOLE 30 MG TAB.RAP.DR PEG SCH (07:37)
[2021-03-18] MEDS: INSULIN LISPRO 300 UNITS/3 ML VIAL. SQ SCH ×3 (07:37→17:36)
[2021-03-18 07:44] LABS: BASO # 0.1 x10^3/uL (0.0-0.2); BASO % 1 % (0-3); EOS # 0.1 x10^3/uL (0.0-0.7); EOS % 0 % (0-3); HEMOGLOBIN 7.4 g/dL (12.0-15.5); LYMPH # 1.9 x10^3/uL (1.0-4.8); LYMPH % 11 % (24-48); MEAN CORPUSCULAR HEMOGLOBIN 29 pg (25-35); MEAN CORPUSCULAR HGB CONC 31 g/dL (31-37); MEAN CORPUSCULAR VOLUME 93 fL (79-100); MONO # 0.5 x10^3/uL (0.0-1.1); MONO % 3 % (0-9); NEUT # 14.7 x10^3/uL (1.8-7.7); NEUT % 85 % (31-73); PLATELET COUNT 187 x10^3/uL (140-400); RED BLOOD COUNT 2.57 x10^6/uL (3.50-5.40); RED CELL DISTRIBUTION WIDTH 24.9 % (11.5-14.5); WHITE BLOOD COUNT 17.4 x10^3/uL (4.0-11.0)
--- NOTE | 2021-03-18 08:02 | PDOC ---
Infectious Disease Note Subjective: Subjective Patient remains unresponsive on Levophed, on ventilator No family at bedside Patient condition has deteriorated further, renal function has worsened, white count is 17.4, Respiratory condition has worsened, pH 7.02, CO2 94, oxygen saturation 100% FiO2 and PEEP of 14, still remains around 70 to 80% but increasing ventilator rate Underwent right IJ placement yesterday. Dialysis has not been initiated yet. Plans are for initiation this a.m. Has blood-tinged expiratory secretions from trach site, discussed with nursing staff, general surgery has been consulted Patient had one large bowel movement yesterday after which her oxygen saturation has worsened due to movement Team is concerned about possible herpes infection with buttock lesion Left plantar wound is stable ROS: ROS Unable to obtain Vital Signs: Vital Signs Vital Signs Date Time Temp Pulse Resp B/P (MAP) Pulse Ox O2 Delivery O2 Flow Rate FiO2 03/18/21 07:48 81 Ventilator 03/18/21 00:00 97.3 110 20 100/52 97.3 03/17/21 18:24 15.0 Physical Exam: PHYSICAL EXAM GENERAL: Patient on ventilator, nonresponsive, ill-appearing, on ventilation. HEENT: Normocephalic, atraumatic. Pupils equal, small anicteric conjunctivae. Unable to fully open the mouth for evaluation. NECK: Tracheostomy/vent. Blood tinged secretions from trach HEART: S1, S2. Tachycardia, no murmurs. LUNGS: Decreased breath sound at bases. ABDOMEN: Obese, soft. Bowel sounds present. G-tube intact. GENITOURINARY: Stephens placed 03/15/2021 with about 700 mL of clear urine in the last 24 hours EXTREMITIES: Trace edema in the lower extremity, no cyanosis. DERMATOLOGIC: No generalized rash. Blister, left plantar foot. . Bilateral superficial ulceration on both buttock cheeks, Could not examine,See wound care notes and pictures for full details, I could not see any vesicles. NEUROLOGIC: Nonresponsive. Right upper extremity midline clean. Medications: Inpatient Meds: Medications reviewed. Labs: Lab Laboratory Tests Test 03/17/21 12:49 03/17/21 13:35 03/17/21 17:34 03/17/21 23:43 Glucose (Fingerstick) 192 mg/dL (70-99) 179 mg/dL (70-99) 247 mg/dL (70-99) Sodium Level 133 mmol/L (136-145) Potassium Level 5.0 mmol/L (3.5-5.1) Chloride Level 96 mmol/L (98-107) Carbon Dioxide Level 25 mmol/L (21-32) Anion Gap 12 (6-14) Blood Urea Nitrogen 94 mg/dL (7-20) Creatinine 2.6 mg/dL (0.6-1.0) Estimated GFR (Cockcroft-Gault) 18.3 Glucose Level 196 mg/dL (70-99) Calcium Level 7.8 mg/dL (8.5-10.1) Test 03/18/21 06:50 White Blood Count 17.4 x10^3/uL (4.0-11.0) Red Blood Count 2.57 x10^6/uL (3.50-5.40) Hemoglobin 7.4 g/dL (12.0-15.5) Hematocrit 24.0 % (36.0-47.0) Mean Corpuscular Volume 93 fL (79-100) Mean Corpuscular Hemoglobin 29 pg (25-35) Mean Corpuscular Hemoglobin Concent 31 g/dL (31-37) Red Cell Distribution Width 24.9 % (11.5-14.5) Platelet Count 187 x10^3/uL (140-400) Neutrophils (%) (Auto) 85 % (31-73) Lymphocytes (%) (Auto) 11 % (24-48) Monocytes (%) (Auto) 3 % (0-9) Eosinophils (%) (Auto) 0 % (0-3) Basophils (%) (Auto) 1 % (0-3) Neutrophils # (Auto) 14.7 x10^3/uL (1.8-7.7) Lymphocytes # (Auto) 1.9 x10^3/uL (1.0-4.8) Monocytes # (Auto) 0.5 x10^3/uL (0.0-1.1) Eosinophils # (Auto) 0.1 x10^3/uL (0.0-0.7) Basophils # (Auto) 0.1 x10^3/uL (0.0-0.2) Objective: Assessment: Severe sepsis requiring pressors Blood culture and urine culture negative here so far. [facility], discussed with chief of nursing at [facility] Encephalopathy could be anoxic versus other, also concern for meningoencephalitis with severe pulmonary disease and cryptococcal antigen greater than 1:512. 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 Serous fluid has had no neutrophil or lymphocyte. BAL had many pulmonary macrophages, few bronchial epithelial cells present, indicative of lower respiratory tract sample, clean with moderate predominantly acute inflammation. Silver stain was positive for yeast and fungal elements, negative for PJP. The patient had been on steroids at outside hospital. The patient has no other risk factors including farming, construction, gardening or gross outdoor activities per discussion with . Repeat cryptococcal titer remain unchanged. Currently AmBisome and flucytosine is on hold due to CHLOÉ. 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 Patient's did not consent for LP and has refused at [facility] and here at [facility]. 3. Acute kidney injury, worsening, appears multifactorial including AmBisome and vasopressor need including sepsis. 4. Wounds over both buttocks and left plantar, chronic. Unable to assess today due to Compromised respiratory status with high CO2 of 94% and pH of 7.02 5. Status post tracheostomy with difficulty weaning off vent, status post BAL 02/21 with cultures positive for Strep group B and Cryptococcus neoformans. 6. Worsening respiratory failure, currently on FiO2 100%, PEEP of 14, appears multifactorial. Patient also had been off vent for unknown period of time last Saturday per report at [facility]. Previously patient had been off ventilator at [facility], was able to speak with speaking valve. I discussed with Dr. Rose pulmonary and Chief of nursing yesterday to clarify regarding the same. They are investigating but we were not able to convey how long patient had been off venti lator. They mentioned that they had family meeting at [facility] on 03/16/2021. 7. Leukocytosis in part reactive from steroids. C. diff negative on 02/28/2021. If she has diarrhea send C. difficile PCR 8. UTI. Urine cultures negative .history of Klebsiella in urine 02/20, no pyuria, likely colonization. 9. History of trach cultures positive for Corine dubliniensis at outside hospital. 10. History of Corine in urine at outside hospital. 11. History of methicillin-resistant Staphylococcus aureus in the sputum at outside hospital. 12. COVID-19 viral pneumonia with acute hypoxic respiratory failure, requiring tracheostomy. 13. Oropharyngeal dysphagia, maintained on tube feedings. 14. Paroxysmal atrial fibrillation with rapid ventricular response, on amiodarone. 15. Morbid obesity. 16. Gastrointestinal bleed. 17. Critical illness myopathy. 18. Gastroesophageal reflux disease. 19. Asthma. 20. Obstructive sleep apnea. 21. Status post left knee arthroplasty. 22. Osteoarthritis. 23. Hypothyroidism. 24. History of chronic pain. 25. Hyperlipidemia. 26. Otomastoiditis and Ear fliud collection Plan: Plan of Care Limited choices for cryptococcal infection 1. Continue to hold AmBisome and flucytosine with CHLOÉ. Initial plan was for 2 weeks for induction therapy from 03/09/2021 2. Not a candidate for fluconazole due to Amiodarone. Patient is not allergic to fluconazole. 3. Follow blood cultures from 03/15 and 03/16. 4. Continue empiric Merrem and linezolid and micafungin. Will add empiric Valtrex 500 mg p.o. daily for 5 days due to possible HSV. 5. Monitor labs and cultures. 6. I had consulted neurology yesterday, order was canceled by RN with telephone order But I was not contacted on phone or verbal communication for the same. Later neurology consult was reentered my name. 7. Neurology recommendations noted. Patient's had refused to consent for LP. Neurology is not recommending LP at this time either. No further imaging has been recommended by neurology at this time 8. Renal team and pulmonary is following. 9. Offload if able which is difficult at this time due to worsening respiratory status. Continue local wound care as directed. 10. Critically ill. 11. Prognosis is very poor. I have discussed with patient's at length at bedside yesterday. All questions have been answered. ELLIOTT KELLY MD Mar 18, 2021 08:02
[2021-03-18 08:03] LABS: BASE EXCESS ABG -7 mmol/L (-3-3); HCO3 ABG 24 mmol/L (21-28); PO2 ABG 54 mmHg (65-108); SAT O2 ABG 76 % (92-99)
[2021-03-18 08:04] LABS: PCO2 ABG 94 mmHg (35-46)
[2021-03-18 08:05] LABS: CALCIUM 7.5 mg/dL (8.5-10.1); CREATININE 2.6 mg/dL (0.6-1.0); GFR 18.3; POTASSIUM 4.4 mmol/L (3.5-5.1)
[2021-03-18 08:05] LABS: FIO2 ABG 100
[2021-03-18] MEDS: IPRATRPIUM/ALBUTEROL 0.5/2.5MG 3 ML NEBU. NEB SCH ×4 (08:05→20:17)
--- NOTE | 2021-03-18 08:21 | NUR ---
Pt had a small liquid stool at 0400 and bath was done and linens changed. Patient did not tolerate the procedure well. O2 Sat dropped to 22 and after 2 hours it was still only 77. Dr. Johnson here. Wants a surgeon to check the patients trach as it has a large air lead.
[2021-03-18] MEDS: AMIODARONE HCL 200 MG TABLET. PO SCH (08:28)
--- NOTE | 2021-03-18 08:40 | RAD ---
EXAM: Chest, single view. HISTORY: Respiratory failure. COMPARISON: 03/17/2021 FINDINGS: A frontal view of the chest is obtained. There is stable diffuse infiltrate with small pleu ral effusions. Superimposed on suspected chronic interstitial changes. There is a stable cardiac silh ouette. There is a tracheostomy device overlying expected position. There is a right internal jugular catheter with the tip overlying the right atrium. There is no pneumothorax. IMPRESSION: 1. Stable diffuse infiltrate and small pleural effusions. 2. Stable support lines and tubes. Electronically signed by: Trish Mcmahon MD (03/18/2021 8:37 AM) [id number]
[2021-03-18] MEDS: POLYETHYLENE GLYCOL 3350 17 GM PACKET. PO SCH (08:57)
[2021-03-18] MEDS: METOPROLOL TART IMMED RELEASE 25 MG TABLET. PO SCH ×2 (08:57→21:00)
[2021-03-18] MEDS: NOREPINEPHRINE VIAL 32 MG in IV D5W 250ML IV PRN ×4 (09:14→21:05)
[2021-03-18] MEDS: valACYclovir 500 MG TABLET. PO SCH (09:16)
--- NOTE | 2021-03-18 10:21 | PDOC ---
DATE OF SERVICE: DOS: DATE: 03/18/21 TIME: 10:20 SUBJECTIVE ROS Asked to see for CHLOÉ Patient remains on the ventilator via tracheostomy currently unable to get review of systems OBJECTIVE Vital Signs Vital Signs Date Time Temp Pulse Resp B/P (MAP) Pulse Ox O2 Delivery O2 Flow Rate FiO2 03/18/21 08:28 97 89/57 03/18/21 07:48 81 Ventilator 03/18/21 06:00 20 03/18/21 04:00 97.9 97.9 03/17/21 18:24 15.0 I & 0 Intake and Output 03/18/21 07:00 Intake Total 2114 ml Output Total 725 ml Balance 1389 ml Intake Oral 0 ml IV Total 1145 ml Tube Feeding 799 ml Other 170 ml Output Urine Total 725 ml PHYSICAL EXAM Physical Exam General Appearance: Patient is sedated and on the vent via tracheostomy Eyes: Sclera anicteric conjunctiva Normal EN: No EN Drainage Mucous Memb. Moist Neck: Unable to assess due to short thick neck, neck is otherwise supple , tracheostomy CVS: S1 S2 I was unable to hear an obvious murmur No Gallop No Rub possible trace edema Resp: Diffuse Rales occasional rhonchi no obvious Acc. Muscle use GI: BS +ve NO Bruit Non Tender Non Distended : no CVA tenderness; no Suprapubic Tenderness SKIN: No obvious visible rashes Breast Exam deferred Mu.Sk: Appears to have foot drop on the left with some muscle Atrophy Heme: Unable to palpate Obvious LAD I was unable to palpate any splenomegaly NEURO: Unable to assess while sedated on the ventilator via tracheostomy Psych: Unable to assess while sedated on the ventilator via tracheostomy Assessment & Plan Acute kidney injury: Possible ATN. Multifactorial. Will check CPK. Presence of granular casts to suggest likelihood of intravascular volume depletion. Do not feel dialysis is imminent at this time unless felt to have a fluid component to her respiratory failure. She remains somewhat oliguric at this time given marginal systemic pressures, it will be challenging to ultrafilter her anyways. Still possibly some intravascular volume depletion: Gentle IV fluids if acceptable from pulmonary standpoint Hypotension: Possibly due to severe respiratory acidosis. Patient remains on a decent amount of PEEP also Marginal hyperkalemia presumably due to severe acidosis. This appears to have improved for now Severe hypoalbuminemia: Patient to start tube feeds with Nepro Hyperphosphatemia presentation: Continue with Nepro for now Significant anemia: Given recent Covid pneumonitis have not started Epogen at this time Possible sepsis cannot be ruled out with ongoing bandemia. Will defer to infectious disease specialist to manage antibiotics. Lactate is normal Severe respiratory acidosis despite being on the ventilator. Inadequate metabolic compensation in light of acute kidney injury, have discussed with pulm onology and will proceed with CRRT to assist with compensation for acidosis especially since it is felt that this may be contributing to hypotension. IV bicarb will be administered to get pH closer to 7.2-7.25 range Marginal hypocalcemia appears to have improved currently. Almost corrects for hypoalbuminemia Hypoalbuminemia: Patient on tube feeds at this time COVID-19 pneumonitis now CNI status Extensively discussed with at bedside and with Dr. Johnson COMMENT/RELEVANT DATA Meds Current Medications Medications (Trade) Dose Ordered Sig/Franklin Start Time Stop Time Status Last Admin Dose Admin Acetaminophen (Tylenol) 650 mg PRN Q4HRS PRN 03/16/21 16:30 03/17/21 16:29 DC Albuterol/ Ipratropium (Duoneb) 3 ml QID 03/17/21 09:00 03/18/21 08:05 3 ML Amiodarone HCl (Cordarone) 200 mg DAILY 03/17/21 09:00 03/18/21 08:28 200 MG Atropine Sulfate (ATROPINE 0.5mg SYRINGE) 0.5 mg PRN Q5MIN PRN 03/16/21 14:00 Calcium Gluconate (Calcium Gluconate) 1,000 mg 1X ONCE 03/16/21 14:45 03/16/21 14:46 DC 03/16/21 15:01 1,000 MG Dexmedetomidine HCl 400 mcg/ Sodium Chloride 100 ml @ 0 mls/hr CONT PRN 03/16/21 14:00 03/18/21 09:13 39.6 MLS/HR Dextrose (Dextrose 50%-Water Syringe) 12.5 gm PRN Q15MIN PRN 03/17/21 02:45 Fentanyl Citrate 55 ml @ 0 mls/hr CONT PRN 03/17/21 17:00 03/17/21 17:54 1 MLS/HR Heparin Sodium (Porcine) (Heparin Sodium) 5,000 unit Q8HRS 03/17/21 06:00 03/18/21 07:36 5,000 UNIT Insulin Human Lispro (HumaLOG) 0-9 UNITS Q6HRS 03/17/21 06:00 03/18/21 07:37 4 UNITS Lansoprazole (Prevacid) 30 mg DAILY07 03/17/21 09:00 03/18/21 07:37 30 MG Lidocaine HCl (Buffered Lidocaine 1%) 3 ml 1X ONCE 03/17/21 13:30 03/17/21 13:31 DC 03/17/21 13:22 3 ML Linezolid/Dextrose 300 ml @ 300 mls/hr Q12HR 03/16/21 21:00 03/18/21 08:28 300 MLS/HR Meropenem 500 mg/ Sodium Chloride 50 ml @ 100 mls/hr Q8HRS 03/17/21 14:00 03/18/21 05:36 100 MLS/HR Metoprolol Tartrate (Lopressor) 25 mg BID 03/17/21 09:00 Micafungin Sodium 100 mg/Dextrose 100 ml @ 100 mls/hr Q24H 03/16/21 22:00 03/17/21 23:18 100 MLS/HR Midazolam HCl 100 ml @ 1 mls/hr CONT PRN 03/16/21 15:00 03/18/21 02:51 1 MLS/HR Midazolam HCl (Versed) 5 mg 1X ONCE 03/16/21 14:45 03/16/21 14:46 DC 03/16/21 14:41 5 MG Nitroglycerin (Nitrostat) 0.4 mg PRN Q5MIN PRN 03/16/21 16:30 03/17/21 16:29 DC Norepinephrine Bitartrate 32 mg/ Dextrose 250 ml @ 6.464 mls/ hr CONT PRN 03/17/21 20:45 03/18/21 09:14 27 MLS/HR Norepinephrine Bitartrate 8 mg/ Dextrose 258 ml @ 26.703 mls/ hr CONT PRN 03/17/21 09:00 03/17/21 20:36 DC 03/17/21 15:22 40.055 MLS/HR Pantoprazole Sodium (Protonix) 40 mg DAILYAC 03/17/21 07:30 Cancel Pharmacy Consult (C.diff Med Screen By Rx) 1 each 1X ONCE 03/16/21 23:45 03/16/21 23:46 DC Polyethylene Glycol (miraLAX PACKET) 17 gm DAILY 03/17/21 09:00 03/17/21 09:35 17 GM Propofol 100 ml @ As Directed STK-MED ONCE 03/16/21 14:55 03/16/21 14:55 DC Sodium Bicarbonate (Sodium Bicarb Adult 8.4% Syr) 150 meq 1X ONCE 03/17/21 12:30 03/17/21 12:32 DC 03/17/21 12:58 150 MEQ Sodium Chloride 500 ml @ 500 mls/hr 1X PRN PRN 03/16/21 14:00 Valacyclovir HCl (Valtrex) 500 mg DAILY 03/18/21 09:00 03/22/21 09:00 03/18/21 09:16 500 MG Vecuronium [place] (Norcuron Bolus) 6 mg PRN Q4HRS PRN 03/17/21 12:45 03/18/21 05:32 6 MG Lab Laboratory Tests Test 03/17/21 12:49 03/17/21 13:35 03/17/21 17:34 03/17/21 23:43 Glucose (Fingerstick) 192 mg/dL (70-99) 179 mg/dL (70-99) 247 mg/dL (70-99) Sodium Level 133 mmol/L (136-145) Potassium Level 5.0 mmol/L (3.5-5.1) Chloride Level 96 mmol/L (98-107) Carbon Dioxide Level 25 mmol/L (21-32) Anion Gap 12 (6-14) Blood Urea Nitrogen 94 mg/dL (7-20) Creatinine 2.6 mg/dL (0.6-1.0) Estimated GFR (Cockcroft-Gault) 18.3 Glucose Level 196 mg/dL (70-99) Calcium Level 7.8 mg/dL (8.5-10.1) Test 03/18/21 06:50 03/18/21 07:52 White Blood Count 17.4 x10^3/uL (4.0-11.0) Red Blood Count 2.57 x10^6/uL (3.50-5.40) Hemoglobin 7.4 g/dL (12.0-15.5) Hematocrit 24.0 % (36.0-47.0) Mean Corpuscular Volume 93 fL (79-100) Mean Corpuscular Hemoglobin 29 pg (25-35) Mean Corpuscular Hemoglobin Concent 31 g/dL (31-37) Red Cell Distribution Width 24.9 % (11.5-14.5) Platelet Count 187 x10^3/uL (140-400) Neutrophils (%) (Auto) 85 % (31-73) Lymphocytes (%) (Auto) 11 % (24-48) Monocytes (%) (Auto) 3 % (0-9) Eosinophils (%) (Auto) 0 % (0-3) Basophils (%) (Auto) 1 % (0-3) Neutrophils # (Auto) 14.7 x10^3/uL (1.8-7.7) Lymphocytes # (Auto) 1.9 x10^3/uL (1.0-4.8) Monocytes # (Auto) 0.5 x10^3/uL (0.0-1.1) Eosinophils # (Auto) 0.1 x10^3/uL (0.0-0.7) Basophils # (Auto) 0.1 x10^3/uL (0.0-0.2) Sodium Level 134 mmol/L (136-145) Potassium Level 4.4 mmol/L (3.5-5.1) Chloride Level 96 mmol/L (98-107) Carbon Dioxide Level 27 mmol/L (21-32) Anion Gap 11 (6-14) Blood Urea Nitrogen 91 mg/dL (7-20) Creatinine 2.6 mg/dL (0.6-1.0) Estimated GFR (Cockcroft-Gault) 18.3 Glucose Level 197 mg/dL (70-99) Calcium Level 7.5 mg/dL (8.5-10.1) Magnesium Level 2.2 mg/dL (1.8-2.4) O2 Saturation 76 % (92-99) Arterial Blood pH 7.02 (7.35-7.45) Arterial Blood pCO2 at Patient Temp 94 mmHg (35-46) Arterial Blood pO2 at Patient Temp 54 mmHg (65-108) Arterial Blood HCO3 24 mmol/L (21-28) Arterial Blood Base Excess -7 mmol/L (-3-3) FiO2 100 Results All relevant outside records, renal labs, imaging studies, telemetry/EKG's were reviewed. Other Echocardiogram from yesterday: The left ventricle is normal size. The left ventricular systolic function is normal and the ejection fraction is within normal range. LV ejection fraction is 55 to 60%. There is borderline to mild concentric left ventricular hypertrophy. Doppler and Color Flow revealed no significant aortic regurgitation. There is no significant aortic valvular stenosis. Doppler and Color-flow revealed trace to mild mitral regurgitation. Doppler and Color Flow revealed mild tricuspid regurgitation. The PA pressure was estimated at 50 mmHg. Chest x-ray from this morning: IMPRESSION: 1. Stable diffuse infiltrate and small pleural effusions. 2. Stable support lines and tubes. Justicifation of Admission Dx: Justifications for Admission: Justification of Admission Dx: N/A HUMAIRA KELLY MD Mar 18, 2021 10:21
[2021-03-18] MEDS: MAGNESIUM SULFATE IV SCH ×12 (13:20→23:48)
[2021-03-18] MEDS: POTASSIUM CHLORIDE IV SCH ×12 (13:20→23:48)
[2021-03-18] MEDS: [UNRECOGNIZED DRUG - OTHER] IV SCH ×8 (13:20→20:33)
[2021-03-18] MEDS: SODIUM BICARBONATE VIAL 150 MEQ in IV DEXTROSE 5% 1,000 ML IV SCH ×6 (13:20→23:49)
[2021-03-18] MEDS: CALCIUM CHLORIDE IV SCH ×12 (13:20→23:48)
[2021-03-18] MEDS: VASOPRESSIN - VASOSTRICT 20 UNIT in IV DEXTROSE 5% 100ML 100 ML IV PRN ×2 (14:25→21:06)
[2021-03-18] MEDS ORDERED: ALBUMIN HUMAN 5% 500 ML IV ONE ×2 (15:15→19:30)
--- NOTE | 2021-03-18 15:56 | RAD ---
EXAM: Renal sonogram. HISTORY: Renal failure. TECHNIQUE: Sonographic imaging the kidneys and bladder was performed. COMPARISON: None. FINDINGS: The left kidney is obscured due to bowel gas. The right kidney is normal in size. No solid or cystic renal lesion is seen. There is no hydronephrosis. There is a Stephens catheter within the blad luis. IMPRESSION: 1. Sonographically unremarkable right kidney. 2. Obscured left kidney. Electronically signed by: Trish Mcmahon MD (03/18/2021 3:53 PM) [id number]
--- NOTE | 2021-03-18 17:13 | NUR ---
At 1400 patient intubated requiring rapid titration of Levophed d/t starting CRRT. Starting rate at 0.43mcg/kg/min and patient stabilized at 1430 at 0.75mcg/kg/min with a MAP >65. Levophed gtt currently at 0.75mcg/kg/min. Patient in A-fib, HR-103, Sp02-87%
[2021-03-18 19:20] LABS: CALCIUM 6.8 mg/dL (8.5-10.1); CREATININE 1.6 mg/dL (0.6-1.0); GFR 32.1; MAGNESIUM 2.7 mg/dL (1.8-2.4); PHOSPHORUS 4.7 mg/dL (2.6-4.7); POTASSIUM 3.8 mmol/L (3.5-5.1)
[2021-03-18] MEDS: fentaNYL HIGH DOSE PCA 55 ML IV PRN (20:13)
[2021-03-18] MEDS: [UNRECOGNIZED DRUG - OTHER] IV SCH ×4 (20:42→23:48)
[2021-03-18] MEDS: MEROPENEM 1 GM in IV NORMAL SALINE 100ML 100 ML IV SCH (21:07)
[2021-03-18] MEDS: MICAFUNGIN 100 MG in IV DEXTROSE 5% 100ML 100 ML IV SCH (21:41)
[2021-03-18 22:06] LABS: BILIRUBIN,URINE NEGATIVE (NEG); CLARITY,URINE TURBID; COLOR,URINE AMBER; NITRITE,URINE NEGATIVE (NEG); PROTEIN,URINE 100 mg/dL (NEG-TRACE); UROBILINOGEN,URINE 0.2 mg/dL (0.2 mg/dL)
[2021-03-18 22:12] LABS: RBC,URINE 20-40 /HPF (0-2)
[2021-03-18 22:13] LABS: AMORPHOUS SEDIMENT,UR PRESENT /HPF; BACTERIA,URINE FEW /HPF (0-FEW); GRANULAR CASTS,URINE FEW /HPF; HYALINE CASTS, URINE FEW /HPF
[2021-03-19] VITALS (30 sets, daily range): BP systolic 86–115; BP diastolic 48–60
[2021-03-19] MEDS: INSULIN LISPRO 300 UNITS/3 ML VIAL. SQ SCH ×4 (00:21→17:35)
[2021-03-19 00:38] LABS: CALCIUM 7.5 mg/dL (8.5-10.1); CREATININE 1.2 mg/dL (0.6-1.0); GFR 44.7; MAGNESIUM 2.8 mg/dL (1.8-2.4); PHOSPHORUS 3.3 mg/dL (2.6-4.7); POTASSIUM 3.7 mmol/L (3.5-5.1)
[2021-03-19] MEDS: MIDAZOLAM 100mg/100ml NS BAG 100 ML IV PRN ×3 (01:14→22:49)
[2021-03-19] MEDS: CALCIUM CHLORIDE IV SCH ×18 (02:17→23:49)
[2021-03-19] MEDS: POTASSIUM CHLORIDE IV SCH ×18 (02:17→23:49)
[2021-03-19] MEDS: SODIUM BICARBONATE VIAL 150 MEQ in IV DEXTROSE 5% 1,000 ML IV SCH ×11 (02:17→23:50)
[2021-03-19] MEDS: [UNRECOGNIZED DRUG - OTHER] IV SCH ×18 (02:17→23:49)
[2021-03-19] MEDS: MAGNESIUM SULFATE IV SCH ×18 (02:17→23:49)
[2021-03-19] MEDS: NOREPINEPHRINE VIAL 32 MG in IV D5W 250ML IV PRN ×5 (02:18→21:57)
[2021-03-19] MEDS: DEXMEDETOMIDINE 400 MCG in IV NORMAL SALINE 100ML 96 ML IV PRN ×10 (02:21→22:50)
--- NOTE | 2021-03-19 05:49 | PDOC ---
PULMONARY PROGRESS NOTES DATE: 03/19/21 TIME: 05:48 Subjective trach has leak not all the time on crrt on PC peep 14 fio2 100% sat 90% on levo vaso precedex versed fentanyl vec prn Vitals Vital Signs Date Time Temp Pulse Resp B/P (MAP) Pulse Ox O2 Delivery O2 Flow Rate FiO2 03/19/21 05:00 100 28 106/51 85 Ventilator 03/19/21 04:00 94.0 94.0 Comments on vent trach sedated NC AT irreg irreg no accessory muscle use obese no rash Labs Laboratory Tests Test 03/17/21 06:30 03/17/21 07:10 03/17/21 12:49 03/17/21 13:35 White Blood Count 17.1 x10^3/uL (4.0-11.0) Red Blood Count 2.51 x10^6/uL (3.50-5.40) Hemoglobin 7.2 g/dL (12.0-15.5) Hematocrit 23.1 % (36.0-47.0) Mean Corpuscular Volume 92 fL (79-100) Mean Corpuscular Hemoglobin 29 pg (25-35) Mean Corpuscular Hemoglobin Concent 31 g/dL (31-37) Red Cell Distribution Width 24.5 % (11.5-14.5) Platelet Count 143 x10^3/uL (140-400) Neutrophils (%) (Auto) 89 % (31-73) Lymphocytes (%) (Auto) 7 % (24-48) Monocytes (%) (Auto) 4 % (0-9) Eosinophils (%) (Auto) 0 % (0-3) Basophils (%) (Auto) 0 % (0-3) Neutrophils # (Auto) 15.1 x10^3/uL (1.8-7.7) Lymphocytes # (Auto) 1.3 x10^3/uL (1.0-4.8) Monocytes # (Auto) 0.7 x10^3/uL (0.0-1.1) Eosinophils # (Auto) 0.0 x10^3/uL (0.0-0.7) Basophils # (Auto) 0.1 x10^3/uL (0.0-0.2) Sodium Level 134 mmol/L (136-145) 133 mmol/L (136-145) Potassium Level 5.3 mmol/L (3.5-5.1) 5.0 mmol/L (3.5-5.1) Chloride Level 97 mmol/L (98-107) 96 mmol/L (98-107) Carbon Dioxide Level 24 mmol/L (21-32) 25 mmol/L (21-32) Anion Gap 13 (6-14) 12 (6-14) Blood Urea Nitrogen 94 mg/dL (7-20) 94 mg/dL (7-20) Creatinine 2.5 mg/dL (0.6-1.0) 2.6 mg/dL (0.6-1.0) Estimated GFR (Cockcroft-Gault) 19.2 18.3 Glucose Level 170 mg/dL (70-99) 196 mg/dL (70-99) Calcium Level 8.1 mg/dL (8.5-10.1) 7.8 mg/dL (8.5-10.1) O2 Saturation 97 % (92-99) Arterial Blood pH 7.18 (7.35-7.45) Arterial Blood pCO2 at Patient Temp 63 mmHg (35-46) Arterial Blood pO2 at Patient Temp 107 mmHg (65-108) Arterial Blood HCO3 23 mmol/L (21-28) Arterial Blood Base Excess -5 mmol/L (-3-3) FiO2 100 Glucose (Fingerstick) 192 mg/dL (70-99) Test 03/17/21 17:34 03/17/21 23:43 03/18/21 06:50 03/18/21 07:52 Glucose (Fingerstick) 179 mg/dL (70-99) 247 mg/dL (70-99) White Blood Count 17.4 x10^3/uL (4.0-11.0) Red Blood Count 2.57 x10^6/uL (3.50-5.40) Hemoglobin 7.4 g/dL (12.0-15.5) Hematocrit 24.0 % (36.0-47.0) Mean Corpuscular Volume 93 fL (79-100) Mean Corpuscular Hemoglobin 29 pg (25-35) Mean Corpuscular Hemoglobin Concent 31 g/dL (31-37) Red Cell Distribution Width 24.9 % (11.5-14.5) Platelet Count 187 x10^3/uL (140-400) Neutrophils (%) (Auto) 85 % (31-73) Lymphocytes (%) (Auto) 11 % (24-48) Monocytes (%) (Auto) 3 % (0-9) Eosinophils (%) (Auto) 0 % (0-3) Basophils (%) (Auto) 1 % (0-3) Neutrophils # (Auto) 14.7 x10^3/uL (1.8-7.7) Lymphocytes # (Auto) 1.9 x10^3/uL (1.0-4.8) Monocytes # (Auto) 0.5 x10^3/uL (0.0-1.1) Eosinophils # (Auto) 0.1 x10^3/uL (0.0-0.7) Basophils # (Auto) 0.1 x10^3/uL (0.0-0.2) Sodium Level 134 mmol/L (136-145) Potassium Level 4.4 mmol/L (3.5-5.1) Chloride Level 96 mmol/L (98-107) Carbon Dioxide Level 27 mmol/L (21-32) Anion Gap 11 (6-14) Blood Urea Nitrogen 91 mg/dL (7-20) Creatinine 2.6 mg/dL (0.6-1.0) Estimated GFR (Cockcroft-Gault) 18.3 Glucose Level 197 mg/dL (70-99) Uric Acid 7.0 mg/dL (2.6-6.0) Calcium Level 7.5 mg/dL (8.5-10.1) Magnesium Level 2.2 mg/dL (1.8-2.4) Creatine Kinase 16 U/L (26-192) Hepatitis B Surface Antigen Nonreactive (Nonreactive) Hepatitis B Surface Antibody Reactive O2 Saturation 76 % (92-99) Arterial Blood pH 7.02 (7.35-7.45) Arterial Blood pCO2 at Patient Temp 94 mmHg (35-46) Arterial Blood pO2 at Patient Temp 54 mmHg (65-108) Arterial Blood HCO3 24 mmol/L (21-28) Arterial Blood Base Excess -7 mmol/L (-3-3) FiO2 100 Test 03/18/21 11:40 03/18/21 17:35 03/18/21 18:44 03/18/21 21:30 Glucose (Fingerstick) 191 mg/dL (70-99) 223 mg/dL (70-99) Sodium Level 133 mmol/L (136-145) Potassium Level 3.8 mmol/L (3.5-5.1) Chloride Level 96 mmol/L (98-107) Carbon Dioxide Level 30 mmol/L (21-32) Anion Gap 7 (6-14) Blood Urea Nitrogen 56 mg/dL (7-20) Creatinine 1.6 mg/dL (0.6-1.0) Estimated GFR (Cockcroft-Gault) 32.1 Glucose Level 247 mg/dL (70-99) Calcium Level 6.8 mg/dL (8.5-10.1) Phosphorus Level 4.7 mg/dL (2.6-4.7) Magnesium Level 2.7 mg/dL (1.8-2.4) Urine Collection Type Unknown Urine Color Melani Urine Clarity Turbid Urine pH 5.0 (<5.0-8.0) Urine Specific [place] 1.020 (1.000-1.030) Urine Protein 100 mg/dL (NEG-TRACE) Urine Glucose (UA) 100 mg/dL (NEG) Urine Ketones (Stick) Negative mg/dL (NEG) Urine Blood Large (NEG) Urine Nitrite Negative (NEG) Urine Bilirubin Negative (NEG) Urine Urobilinogen Dipstick 0.2 mg/dL (0.2 mg/dL) Urine Leukocyte Esterase Moderate (NEG) Urine RBC 20-40 /HPF (0-2) Urine WBC 11-20 /HPF (0-4) Urine Squamous Epithelial Cells Occ /LPF Urine Amorphous Sediment Present /HPF Urine Bacteria Few /HPF (0-FEW) Urine Hyaline Casts Few /HPF Urine Granular Casts Few /HPF Urine Mucus Mod /LPF Test 03/19/21 00:15 03/19/21 00:17 Sodium Level 133 mmol/L (136-145) Potassium Level 3.7 mmol/L (3.5-5.1) Chloride Level 97 mmol/L (98-107) Carbon Dioxide Level 32 mmol/L (21-32) Anion Gap 4 (6-14) Blood Urea Nitrogen 34 mg/dL (7-20) Creatinine 1.2 mg/dL (0.6-1.0) Estimated GFR (Cockcroft-Gault) 44.7 Glucose Level 308 mg/dL (70-99) Calcium Level 7.5 mg/dL (8.5-10.1) Phosphorus Level 3.3 mg/dL (2.6-4.7) Magnesium Level 2.8 mg/dL (1.8-2.4) Glucose (Fingerstick) 283 mg/dL (70-99) Laboratory Tests Test 03/18/21 06:50 03/18/21 07:52 03/18/21 11:40 03/18/21 17:35 White Blood Count 17.4 x10^3/uL (4.0-11.0) Red Blood Count 2.57 x10^6/uL (3.50-5.40) Hemoglobin 7.4 g/dL (12.0-15.5) Hematocrit 24.0 % (36.0-47.0) Mean Corpuscular Volume 93 fL (79-100) Mean Corpuscular Hemoglobin 29 pg (25-35) Mean Corpuscular Hemoglobin Concent 31 g/dL (31-37) Red Cell Distribution Width 24.9 % (11.5-14.5) Platelet Count 187 x10^3/uL (140-400) Neutrophils (%) (Auto) 85 % (31-73) Lymphocytes (%) (Auto) 11 % (24-48) Monocytes (%) (Auto) 3 % (0-9) Eosinophils (%) (Auto) 0 % (0-3) Basophils (%) (Auto) 1 % (0-3) Neutrophils # (Auto) 14.7 x10^3/uL (1.8-7.7) Lymphocytes # (Auto) 1.9 x10^3/uL (1.0-4.8) Monocytes # (Auto) 0.5 x10^3/uL (0.0-1.1) Eosinophils # (Auto) 0.1 x10^3/uL (0.0-0.7) Basophils # (Auto) 0.1 x10^3/uL (0.0-0.2) Sodium Level 134 mmol/L (136-145) Potassium Level 4.4 mmol/L (3.5-5.1) Chloride Level 96 mmol/L (98-107) Carbon Dioxide Level 27 mmol/L (21-32) Anion Gap 11 (6-14) Blood Urea Nitrogen 91 mg/dL (7-20) Creatinine 2.6 mg/dL (0.6-1.0) Estimated GFR (Cockcroft-Gault) 18.3 Glucose Level 197 mg/dL (70-99) Uric Acid 7.0 mg/dL (2.6-6.0) Calcium Level 7.5 mg/dL (8.5-10.1) Magnesium Level 2.2 mg/dL (1.8-2.4) Creatine Kinase 16 U/L (26-192) Hepatitis B Surface Antigen Nonreactive (Nonreactive) Hepatitis B Surface Antibody Reactive O2 Saturation 76 % (92-99) Arterial Blood pH 7.02 (7.35-7.45) Arterial Blood pCO2 at Patient Temp 94 mmHg (35-46) Arterial Blood pO2 at Patient Temp 54 mmHg (65-108) Arterial Blood HCO3 24 mmol/L (21-28) Arterial Blood Base Excess -7 mmol/L (-3-3) FiO2 100 Glucose (Fingerstick) 191 mg/dL (70-99) 223 mg/dL (70-99) Test 03/18/21 18:44 03/18/21 21:30 03/19/21 00:15 03/19/21 00:17 Sodium Level 133 mmol/L (136-145) 133 mmol/L (136-145) Potassium Level 3.8 mmol/L (3.5-5.1) 3.7 mmol/L (3.5-5.1) Chloride Level 96 mmol/L (98-107) 97 mmol/L (98-107) Carbon Dioxide Level 30 mmol/L (21-32) 32 mmol/L (21-32) Anion Gap 7 (6-14) 4 (6-14) Blood Urea Nitrogen 56 mg/dL (7-20) 34 mg/dL (7-20) Creatinine 1.6 mg/dL (0.6-1.0) 1.2 mg/dL (0.6-1.0) Estimated GFR (Cockcroft-Gault) 32.1 44.7 Glucose Level 247 mg/dL (70-99) 308 mg/dL (70-99) Calcium Level 6.8 mg/dL (8.5-10.1) 7.5 mg/dL (8.5-10.1) Phosphorus Level 4.7 mg/dL (2.6-4.7) 3.3 mg/dL (2.6-4.7) Magnesium Level 2.7 mg/dL (1.8-2.4) 2.8 mg/dL (1.8-2.4) Urine Collection Type Unknown Urine Color Melani Urine Clarity Turbid Urine pH 5.0 (<5.0-8.0) Urine Specific [place] 1.020 (1.000-1.030) Urine Protein 100 mg/dL (NEG-TRACE) Urine Glucose (UA) 100 mg/dL (NEG) Urine Ketones (Stick) Negative mg/dL (NEG) Urine Blood Large (NEG) Urine Nitrite Negative (NEG) Urine Bilirubin Negative (NEG) Urine Urobilinogen Dipstick 0.2 mg/dL (0.2 mg/dL) Urine Leukocyte Esterase Moderate (NEG) Urine RBC 20-40 /HPF (0-2) Urine WBC 11-20 /HPF (0-4) Urine Squamous Epithelial Cells Occ /LPF Urine Amorphous Sediment Present /HPF Urine Bacteria Few /HPF (0-FEW) Urine Hyaline Casts Few /HPF Urine Granular Casts Few /HPF Urine Mucus Mod /LPF Glucose (Fingerstick) 283 mg/dL (70-99) Medications Active Scripts Medications Dose Route/Sig Max Daily Dose Days Date Category Dose Instructions Miralax (Polyethylene Glycol 3350) 17 Gm Powd.pack 1 Packet PO DAILY 2 03/16/21 Reported dissolve in water Protonix Packet (Pantoprazole Sodium) 40 Mg Granpkt.dr 40 Mg PO DAILY 03/16/21 Reported Metoprolol Tartrate 25 Mg Tablet 1 Tab PO BID 03/16/21 Reported Methylprednisolone Sod Succ 40 Mg Vial 60 Mg IV BID 03/16/21 Reported Duoneb 0.5-3(2.5) Mg/3 Ml (Albuterol/Ipratropium) 3 Ml Ampul.neb 3 Ml NEB QID 03/16/21 Reported Humalog (Insulin Lispro) 100 Unit/1 Ml Vial 6 Unit SQ Q6HRS 03/16/21 Reported Humalog (Insulin Lispro) 100 Unit/1 Ml Cartridge 0-6 Unit SQ Q6HRS 03/16/21 Reported Lantus Solostar (Insulin Glargine,Hum.rec.anlog) 100 Unit/1 Ml Insuln.pen 14 Unit SQ BID 03/16/21 Reported Ferrous Sulfate 325 Mg Tablet 1 Tab PO BID 03/16/21 Reported Diltiazem Hcl Tablet (Diltiazem Hcl) 60 Mg Tablet 60 Mg PO QID 03/16/21 Reported Eliquis (Apixaban) 5 Mg Tablet 5 Mg PO DAILY 03/16/21 Reported [amphotericin] 650 Mg IV DAILY 03/16/21 Reported Amiodarone Hcl 400 Mg Tablet 1 Tab PO DAILY 30 03/16/21 Reported Norepinephrine 8 mg/250 ml-D5w (Norepinephrine Bitartrate/D5w) 8 Mg/250 Ml Plast..bag 8 Mg IV PRN PRN 03/16/21 Reported Dexmedetomidin 400Mcg/100Ml-Ns (Dexmedetomidine in 0.9 % NaCl) 400 Mcg/100 Ml Infus..btl 400 Mcg IV PRN PRN 03/16/21 Reported Comments cxr 08/17 reviewed b lat infilt trach no ptx Impression . IMPRESSION: 1. Acute on chronic respiratory failure, multifactorial. 2. COVID-19 viral pneumonia, sepsis, acute respiratory distress syndrome, complicated with cryptococcal infection. 3. Cryptococcal pneumonia. 4. 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 5. Acute renal failure. 6. Septic shock. 7. Severe protein malnutrition, present upon admission. 8. Status post percutaneous endoscopic gastrostomy and trach. 9. Asthma. 10. Gastroesophageal reflux. 11. Obesity. 12. Chronic atrial fibrillation. The patient currently on amiodarone. Plan . updated 03/19 1. cont vent support setting reviewed peep fio2 titration as tolerated on pc abg reviewed vt in 300 paralyze change to ac vt 500 cc increase rr to 34 consulted surgery has trach leak may need trach change 2. Continue antibiotics and amphotericin B per ID. 3. s/p Hemodialysis catheter 03/17 no crrt sats slightly better 4. Continue sedation. 5. DVT prophylaxis. 6. Nutritional support. 7. Monitor for any amiodarone-induced lung injury. 8. Titrate Levophed/vaso for mean arterial pressure above 60. prognosis very poor nothing else to offer DNR discussed w rn, rt dr parsons critically ill cct 30 min no overlap PLAN: 1. cont vent support setting reviewed peep fio2 titration as tolerated abg reviewed increase rr to 28 will consult surgery has trach leak may need change 2. Continue antibiotics and amphotericin B per ID. 3. s/p Hemodialysis catheter 03/17 hd per nephro 4. Continue sedation. 5. DVT prophylaxis. 6. Nutritional support. 7. Monitor for any amiodarone-induced lung injury. 8. Titrate Levophed for mean arterial pressure above 60. prognosis poor discussed w rn dr wooten critically ill cct 30 min no overlap INDU MADRID MD Mar 19, 2021 05:49
--- NOTE | 2021-03-19 06:15 | RAD ---
XR CHEST 1V 03/19/2021 5:12 AM INDICATION: Respiratory failure COMPARISON: 03/18/2021 TECHNIQUE: Portable frontal view of the chest is provided. FINDINGS/ IMPRESSION: Tracheostomy tube terminates 5.3 cm above the level of the miko. Right IJ central venous catheter i s in similar position. The cardiomediastinal silhouette is similar in appearance. Severe reticular interstitial changes are identified throughout the lungs without significant change. There are no significant pleural effusions. No pneumothorax. Electronically signed by: Renay Norton MD (03/19/2021 6:12 AM) BRIELLE
[2021-03-19] MEDS: VASOPRESSIN - VASOSTRICT 20 UNIT in IV DEXTROSE 5% 100ML 100 ML IV PRN ×3 (06:45→22:15)
--- NOTE | 2021-03-19 06:50 | PDOC ---
[employer] PROGRESS NOTE Date of Service DOS: DATE: 03/19/21 TIME: 06:31 Chief Complaint Chief Complaint Acute on chronic combined hypoxic and hypercapnic respiratory failure - long difficult vent wean after COVID 19 with current cryptoccocal infection. Wean vent as tolerated. Consult pulm for assistance. Vent AC mode 20/550/14/100% with saturations 94%. Acute encephalopathy - likely hypoxic encephalopathy vs uremic and septic encephalopathy. Monitor mental status, wean sedation as tolerated. She has been on precedex for over a month Acute renal failure - multifactorial vasomotor nephropathy from sepsis, multiorgan system failure, hypoxia and possible ATN/AIN from nephrotoxic me dications necessary for cryptococcal infection treatment. Consult nephrology Septic shock - due to above infection. 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 (Vitaliy) is surrogate decision-maker. History of Present Illness History of Present Illness Ms Flores is a 70yo female with PMHx asthma, GERD, HLD, hypothyroidism, chronic pain, JOHAN on CPAP who comes to ED from [facility] for assessment of worsening renal failure. She has been treated at [facility] on a month long vent wean after a complicated COVID-[address] [facility] where she underwent tracheostomy and PEG placement in December 2020. As of ~03/06/2021 last week per patient had been weaning down vent support PEEP of 5 and 55 to 60% FiO2. Because of her failure to progress she underwent bronchoscopy which, per physician at [facility] was positive for cryptococcus and patient was started on amphotericin B flucytosine Zosyn and Zyvox. This past Tuesday 03/13 some time around or after 7:00 AM patient had a significant worsening of her oxygen status and per since then she has been relatively unresponsive. Progressively increased ventilatory support and pressor support with Levophed and progressively worsening multiorgan system failure with elevated creatinine has been transferred out of [facility] for as sessment for renal failure consideration of renal replacement therapy WBC 18.4, Hb 7.7, platelets 147, INR 1.4, NA 133, K5.3, chloride 96, HCO3 27, BUN 82, CR 2.3, glucose 241 calcium 7.7, phosphorus 6.7, lactate 0.8 magnesium 2.1 bilirubin 0.8, AST 25 ALT 37, alkaline phosphatase 81, albumin 2, NT proBNP 7349, urinalysis with moderate leuk esterase large blood WBCs and RBCs as well as granular casts Chest radiograph with severe diffuse interstitial alveolar infiltrates and tracheostomy tube in place Vent AC mode 20/550/14/100% with saturations 94%. EKG sinus rhythm at 61 bpm, unremarkable intervals, left axis deviation, no acute ischemic findings, no ST elevation or TWI Discussed with Vitaliy bedside in ED. ED attempt transfer to [facility] no available beds Admitted to ICU on levophed GTT. 03/17: Afebrile, on vent with FiO2 100%, PEEP 14. Will follow nephrology rec ommendations. Continue fluconazole at this time; further antibiotics/antifungals, perID. No need for urgent dialysis at this time, potassium 5.0. Continue treatment for cryptococcus pneumonia. refusing lumbar puncture. 03/18: Afebrile, on vent with FiO2 100%, PEEP 14. Discussed with Dr. Johnson, concerned that trach cuff may need to be replaced. Will place consult to gene ral surgery. Continue treatment with empiric meropenem, linezolid, and micafungin, per ID. No lumbar puncture planned at this time. No need for urgent hemodialysis. Critical care time 30 minutes spent reviewing charts, reviewing labs and imaging, discussion with Dr. Johnson and RN. 03/19: Afebrile, on vent with FiO2 100%, PEEP 14. General surgery has been consulted for concerns of trach leak; await further recommendations. Had ultrasound-guided placement of right internal jugular temporary dialysis c atheter on 03/17, currently undergoing hemodialysis in ICU. Continue to hold AmBisome and flucytosine with CHLOÉ; continue meropenem, linezolid, and micafungin, per ID. Valtrex has been added for concerns of herpes. Critical care time 30 minutes spent reviewing charts, reviewing labs, reviewing imaging, discussion with RN. Vitals/I&O Vitals/I&O: Vital Signs Date Time Temp Pulse Resp B/P (MAP) Pulse Ox O2 Delivery O2 Flow Rate FiO2 03/19/21 06:00 99 28 109/57 89 Ventilator 03/19/21 04:00 94.0 94.0 I & O 03/18/21 03/18/21 03/19/21 15:00 23:00 07:00 Intake Total 340 ml 1806 ml 3235 ml Output Total 40 ml 465 ml 723 ml Balance 300 ml 1341 ml 2512 ml Physical Exam Physical Exam: GENERAL: Patient on ventilator, nonresponsive, ill-appearing, on ventilation. HEENT: Normocephalic, atraumatic. Pupils equal, small anicteric conjunctivae. Unable to fully open the mouth for evaluation. NECK: Tracheostomy/vent. Blood tinged secretions from trach HEART: S1, S2. Tachycardia, no murmurs. LUNGS: Decreased breath sound at bases. ABDOMEN: Obese, soft. Bowel sounds present. G-tube intact. GENITOURINARY: Stephens placed 03/15/2021 with about 700 mL of clear urine in the last 24 hours EXTREMITIES: Trace edema in the lower extremity, no cyanosis. DERMATOLOGIC: No generalized rash. Blister, left plantar foot. . Bilateral superficial ulceration on both buttock cheeks, Could not examine,See wound care notes and pictures for full details, I could not see any vesicles. NEUROLOGIC: Nonresponsive. Right upper extremity midline clean. General: mild distress, moderate distress, Other (Intubated and sedated) Heart: Regular rate Abdomen: Normal bowel sounds, Other (PEG clean) Extremities: No clubbing, No cyanosis Skin: No significant lesion Labs Labs: Laboratory Tests Test 03/18/21 06:50 03/18/21 07:52 03/18/21 11:40 03/18/21 17:35 White Blood Count 17.4 x10^3/uL (4.0-11.0) Red Blood Count 2.57 x10^6/uL (3.50-5.40) Hemoglobin 7.4 g/dL (12.0-15.5) Hematocrit 24.0 % (36.0-47.0) Mean Corpuscular Volume 93 fL (79-100) Mean Corpuscular Hemoglobin 29 pg (25-35) Mean Corpuscular Hemoglobin Concent 31 g/dL (31-37) Red Cell Distribution Width 24.9 % (11.5-14.5) Platelet Count 187 x10^3/uL (140-400) Neutrophils (%) (Auto) 85 % (31-73) Lymphocytes (%) (Auto) 11 % (24-48) Monocytes (%) (Auto) 3 % (0-9) Eosinophils (%) (Auto) 0 % (0-3) Basophils (%) (Auto) 1 % (0-3) Neutrophils # (Auto) 14.7 x10^3/uL (1.8-7.7) Lymphocytes # (Auto) 1.9 x10^3/uL (1.0-4.8) Monocytes # (Auto) 0.5 x10^3/uL (0.0-1.1) Eosinophils # (Auto) 0.1 x10^3/uL (0.0-0.7) Basophils # (Auto) 0.1 x10^3/uL (0.0-0.2) Sodium Level 134 mmol/L (136-145) Potassium Level 4.4 mmol/L (3.5-5.1) Chloride Level 96 mmol/L (98-107) Carbon Dioxide Level 27 mmol/L (21-32) Anion Gap 11 (6-14) Blood Urea Nitrogen 91 mg/dL (7-20) Creatinine 2.6 mg/dL (0.6-1.0) Estimated GFR (Cockcroft-Gault) 18.3 Glucose Level 197 mg/dL (70-99) Uric Acid 7.0 mg/dL (2.6-6.0) Calcium Level 7.5 mg/dL (8.5-10.1) Magnesium Level 2.2 mg/dL (1.8-2.4) Creatine Kinase 16 U/L (26-192) Hepatitis B Surface Antigen Nonreactive (Nonreactive) Hepatitis B Surface Antibody Reactive O2 Saturation 76 % (92-99) Arterial Blood pH 7.02 (7.35-7.45) Arterial Blood pCO2 at Patient Temp 94 mmHg (35-46) Arterial Blood pO2 at Patient Temp 54 mmHg (65-108) Arterial Blood HCO3 24 mmol/L (21-28) Arterial Blood Base Excess -7 mmol/L (-3-3) FiO2 100 Glucose (Fingerstick) 191 mg/dL (70-99) 223 mg/dL (70-99) Test 03/18/21 18:44 03/18/21 21:30 03/19/21 00:15 03/19/21 00:17 Sodium Level 133 mmol/L (136-145) 133 mmol/L (136-145) Potassium Level 3.8 mmol/L (3.5-5.1) 3.7 mmol/L (3.5-5.1) Chloride Level 96 mmol/L (98-107) 97 mmol/L (98-107) Carbon Dioxide Level 30 mmol/L (21-32) 32 mmol/L (21-32) Anion Gap 7 (6-14) 4 (6-14) Blood Urea Nitrogen 56 mg/dL (7-20) 34 mg/dL (7-20) Creatinine 1.6 mg/dL (0.6-1.0) 1.2 mg/dL (0.6-1.0) Estimated GFR (Cockcroft-Gault) 32.1 44.7 Glucose Level 247 mg/dL (70-99) 308 mg/dL (70-99) Calcium Level 6.8 mg/dL (8.5-10.1) 7.5 mg/dL (8.5-10.1) Phosphorus Level 4.7 mg/dL (2.6-4.7) 3.3 mg/dL (2.6-4.7) Magnesium Level 2.7 mg/dL (1.8-2.4) 2.8 mg/dL (1.8-2.4) Urine Collection Type Unknown Urine Color Melani Urine Clarity Turbid Urine pH 5.0 (<5.0-8.0) Urine Specific [place] 1.020 (1.000-1.030) Urine Protein 100 mg/dL (NEG-TRACE) Urine Glucose (UA) 100 mg/dL (NEG) Urine Ketones (Stick) Negative mg/dL (NEG) Urine Blood Large (NEG) Urine Nitrite Negative (NEG) Urine Bilirubin Negative (NEG) Urine Urobilinogen Dipstick 0.2 mg/dL (0.2 mg/dL) Urine Leukocyte Esterase Moderate (NEG) Urine RBC 20-40 /HPF (0-2) Urine WBC 11-20 /HPF (0-4) Urine Squamous Epithelial Cells Occ /LPF Urine Amorphous Sediment Present /HPF Urine Bacteria Few /HPF (0-FEW) Urine Hyaline Casts Few /HPF Urine Granular Casts Few /HPF Urine Mucus Mod /LPF Glucose (Fingerstick) 283 mg/dL (70-99) Assessment and Plan Assessmemt and Plan Problems Medical Problems: (1) Anemia Status: Acute (2) Chronic respiratory failure Status: Acute (3) CKD (chronic kidney disease) Status: Acute (4) History of COVID-19 Status: Acute (5) PNA (pneumonia) Status: Acute Comment Review of Relevant I have reviewed the following items candice (where applicable) has been applied. Medications: Current Medications Medications (Trade) Dose Ordered Sig/[place] Route PRN Reason Start Time Stop Time Status Last Admin Dose Admin Valacyclovir HCl (Valtrex) 500 mg DAILY PO 03/18/21 09:00 03/22/21 09:00 03/18/21 09:16 Potassium Chloride 20 meq/ Magnesium Sulfate 5 meq/Calcium Chloride 2.5 meq/ Bicarbonate Dialysis Soln w/ out KCl 5,013.0357 ml @ 2,000 mls/hr Q2H31M IV 03/18/21 13:00 03/18/21 20:59 DC 03/18/21 18:30 Potassium Chloride 20 meq/ Magnesium Sulfate 5 meq/Calcium Chloride 2.5 meq/ Bicarbonate Dialysis Soln w/ out KCl 5,013.0357 ml @ 2,000 mls/hr Q2H31M IV 03/18/21 13:00 03/18/21 20:59 DC 03/18/21 18:30 Sodium Bicarbonate 150 meq/Dextrose 1,150 ml @ 500 mls/hr Q2H18M IV 03/18/21 13:00 03/19/21 04:20 Vasopressin 20 unit/Dextrose 101 ml @ 12 mls/hr CONT PRN IV SEE I/O RECORD 03/18/21 14:15 03/18/21 21:06 Meropenem 1 gm/ Sodium Chloride 100 ml @ 200 mls/hr Q12HR IV 03/18/21 21:00 03/18/21 21:07 Albumin Human 500 ml @ 125 mls/hr 1X ONCE IV 03/18/21 15:15 03/18/21 19:14 DC 03/18/21 15:15 Albumin Human 500 ml @ 125 mls/hr 1X ONCE IV 03/18/21 19:30 03/18/21 23:29 DC 03/18/21 20:41 Potassium Chloride 20 meq/ Magnesium Sulfate 5 meq/Calcium Chloride 5 meq/ Bicarbonate Dialysis Soln w/ out KCl 5,014.8214 ml @ 2,000 mls/hr Q2H31M IV 03/18/21 21:00 03/19/21 04:55 Potassium Chloride 20 meq/ Magnesium Sulfate 5 meq/Calcium Chloride 5 meq/ Bicarbonate Dialysis Soln w/ out KCl 5,014.8214 ml @ 2,000 mls/hr Q2H31M IV 03/18/21 21:00 03/19/21 04:54 Justifications for Admission Other Justification BISI GILLESPIE MD Mar 19, 2021 06:50
[2021-03-19] MEDS: HEPARIN for SUB-Q USE 5,000 UNIT/ML VIAL. SQ SCH ×3 (06:58→21:59)
[2021-03-19] MEDS: LANSOPRAZOLE 30 MG TAB.RAP.DR PEG SCH (06:58)
[2021-03-19 07:00] LABS: CALCIUM 7.6 mg/dL (8.5-10.1); CREATININE 0.8 mg/dL (0.6-1.0); GFR 71.3; POTASSIUM 3.5 mmol/L (3.5-5.1)
[2021-03-19 07:12] LABS: BASO % 0 % (0-3); EOS # 0.1 x10^3/uL (0.0-0.7); EOS % 1 % (0-3); LYMPH # 2.1 x10^3/uL (1.0-4.8); LYMPH % 16 % (24-48); MEAN CORPUSCULAR HEMOGLOBIN 29 pg (25-35); MEAN CORPUSCULAR HGB CONC 31 g/dL (31-37); MEAN CORPUSCULAR VOLUME 94 fL (79-100); MONO # 0.5 x10^3/uL (0.0-1.1); MONO % 4 % (0-9); NEUT # 11.1 x10^3/uL (1.8-7.7); NEUT % 80 % (31-73); PLATELET COUNT 138 x10^3/uL (140-400); RED BLOOD COUNT 2.16 x10^6/uL (3.50-5.40); RED CELL DISTRIBUTION WIDTH 24.8 % (11.5-14.5); WHITE BLOOD COUNT 13.8 x10^3/uL (4.0-11.0)
[2021-03-19 07:23] LABS: HEMATOCRIT 20.2 % (36.0-47.0); HEMOGLOBIN 6.3 g/dL (12.0-15.5)
[2021-03-19] MEDS: IPRATRPIUM/ALBUTEROL 0.5/2.5MG 3 ML NEBU. NEB SCH ×4 (07:30→20:15)
[2021-03-19 07:35] LABS: BASE EXCESS ABG 4 mmol/L (-3-3); HCO3 ABG 36 mmol/L (21-28); SAT O2 ABG 76 % (92-99)
[2021-03-19 07:36] LABS: FIO2 ABG 100% VENT; PCO2 ABG 124 mmHg (35-46); PO2 ABG 44 mmHg (65-108)
[2021-03-19 07:55] LABS: MAGNESIUM 2.9 mg/dL (1.8-2.4); PHOSPHORUS 2.5 mg/dL (2.6-4.7)
[2021-03-19] MEDS: VECURONIUM BOLUS 10 MG VIAL. IV PRN ×2 (07:59→16:45)
--- NOTE | 2021-03-19 08:42 | PDOC ---
Infectious Disease Note Subjective: Subjective Patient remains unresponsive, on vent on Levophed Hypothermic last night was placed on Emma hugger ,temperature 94 F this a.m. No family at bedside Patient's respiratory condition has worsened with pH of 7.07, CO2 of 123, on FiO2 100% and PEEP of 14 with ventilator rate at 35 CRRT was initiated on 03/18/2021 WBC down to 13 K, hemoglobin of 6.3, creatinine decreased to 0.8 Tube feedings are on hold due to high residuals since last night per RN Urine culture, blood culture negative here and blood cultures negative at [facility] so far Vital Signs: Vital Signs Vital Signs Date Time Temp Pulse Resp B/P (MAP) Pulse Ox O2 Delivery O2 Flow Rate FiO2 03/19/21 07:56 86 Ventilator 03/19/21 06:00 99 28 109/57 03/19/21 04:00 94.0 94.0 Physical Exam: PHYSICAL EXAM GENERAL: Patient on ventilator, nonresponsive, ill-appearing, on ventilation. On Emma hugger HEENT: Normocephalic, atraumatic. Pupils equal, small anicteric conjunctivae. Unable to fully open the mouth for evaluation. NECK: Tracheostomy/vent. Blood tinged secretions from trach HEART: Tachycardia LUNGS: Decreased breath sound at bases. ABDOMEN: Obese, soft. Bowel sounds present. G-tube intact. GENITOURINARY: Stephens placed 03/15/2021 with about 700 mL of clear urine in the last 24 hours EXTREMITIES: Trace edema in the lower extremity, no cyanosis. DERMATOLOGIC: No generalized rash. Blister, left plantar foot. . Bilateral superficial ulceration on both buttock cheeks, Could not examine,See wound care notes and pictures for full details, I could not see any vesicles. NEUROLOGIC: Nonresponsive. Right upper extremity midline clean. Medications: Inpatient Meds: Medications reviewed. Labs: Lab Laboratory Tests Test 03/18/21 11:40 03/18/21 17:35 03/18/21 18:44 03/18/21 21:30 Glucose (Fingerstick) 191 mg/dL (70-99) 223 mg/dL (70-99) Sodium Level 133 mmol/L (136-145) Potassium Level 3.8 mmol/L (3.5-5.1) Chloride Level 96 mmol/L (98-107) Carbon Dioxide Level 30 mmol/L (21-32) Anion Gap 7 (6-14) Blood Urea Nitrogen 56 mg/dL (7-20) Creatinine 1.6 mg/dL (0.6-1.0) Estimated GFR (Cockcroft-Gault) 32.1 Glucose Level 247 mg/dL (70-99) Calcium Level 6.8 mg/dL (8.5-10.1) Phosphorus Level 4.7 mg/dL (2.6-4.7) Magnesium Level 2.7 mg/dL (1.8-2.4) Urine Collection Type Unknown Urine Color Melani Urine Clarity Turbid Urine pH 5.0 (<5.0-8.0) Urine Specific Barney 1.020 (1.000-1.030) Urine Protein 100 mg/dL (NEG-TRACE) Urine Glucose (UA) 100 mg/dL (NEG) Urine Ketones (Stick) Negative mg/dL (NEG) Urine Blood Large (NEG) Urine Nitrite Negative (NEG) Urine Bilirubin Negative (NEG) Urine Urobilinogen Dipstick 0.2 mg/dL (0.2 mg/dL) Urine Leukocyte Esterase Moderate (NEG) Urine RBC 20-40 /HPF (0-2) Urine WBC 11-20 /HPF (0-4) Urine Squamous Epithelial Cells Occ /LPF Urine Amorphous Sediment Present /HPF Urine Bacteria Few /HPF (0-FEW) Urine Hyaline Casts Few /HPF Urine Granular Casts Few /HPF Urine Mucus Mod /LPF Test 03/19/21 00:15 03/19/21 00:17 03/19/21 06:30 03/19/21 06:54 Sodium Level 133 mmol/L (136-145) 135 mmol/L (136-145) Potassium Level 3.7 mmol/L (3.5-5.1) 3.5 mmol/L (3.5-5.1) Chloride Level 97 mmol/L (98-107) 98 mmol/L (98-107) Carbon Dioxide Level 32 mmol/L (21-32) 33 mmol/L (21-32) Anion Gap 4 (6-14) 4 (6-14) Blood Urea Nitrogen 34 mg/dL (7-20) 22 mg/dL (7-20) Creatinine 1.2 mg/dL (0.6-1.0) 0.8 mg/dL (0.6-1.0) Estimated GFR (Cockcroft-Gault) 44.7 71.3 Glucose Level 308 mg/dL (70-99) 274 mg/dL (70-99) Calcium Level 7.5 mg/dL (8.5-10.1) 7.6 mg/dL (8.5-10.1) Phosphorus Level 3.3 mg/dL (2.6-4.7) 2.5 mg/dL (2.6-4.7) Magnesium Level 2.8 mg/dL (1.8-2.4) 2.9 mg/dL (1.8-2.4) Glucose (Fingerstick) 283 mg/dL (70-99) 280 mg/dL (70-99) White Blood Count 13.8 x10^3/uL (4.0-11.0) Red Blood Count 2.16 x10^6/uL (3.50-5.40) Hemoglobin 6.3 g/dL (12.0-15.5) Hematocrit 20.2 % (36.0-47.0) Mean Corpuscular Volume 94 fL (79-100) Mean Corpuscular Hemoglobin 29 pg (25-35) Mean Corpuscular Hemoglobin Concent 31 g/dL (31-37) Red Cell Distribution Width 24.8 % (11.5-14.5) Platelet Count 138 x10^3/uL (140-400) Neutrophils (%) (Auto) 80 % (31-73) Lymphocytes (%) (Auto) 16 % (24-48) Monocytes (%) (Auto) 4 % (0-9) Eosinophils (%) (Auto) 1 % (0-3) Basophils (%) (Auto) 0 % (0-3) Neutrophils # (Auto) 11.1 x10^3/uL (1.8-7.7) Lymphocytes # (Auto) 2.1 x10^3/uL (1.0-4.8) Monocytes # (Auto) 0.5 x10^3/uL (0.0-1.1) Eosinophils # (Auto) 0.1 x10^3/uL (0.0-0.7) Basophils # (Auto) 0.0 x10^3/uL (0.0-0.2) Test 03/19/21 07:27 O2 Saturation 76 % (92-99) Arterial Blood pH 7.08 (7.35-7.45) Arterial Blood pCO2 at Patient Temp 124 mmHg (35-46) Arterial Blood pO2 at Patient Temp 44 mmHg (65-108) Arterial Blood HCO3 36 mmol/L (21-28) Arterial Blood Base Excess 4 mmol/L (-3-3) FiO2 100% vent Objective: Assessment: Severe sepsis requiring pressors Blood culture and urine culture negative here so far. 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 And high serum cryptococcal antigen . The patient was started on AmBisome and flucytosine on 03/09/2021 for possible meningoencephalitis with cryptococcal antigen greater than 1:512.. Repeat cryptococcal titer remained unchanged. Currently AmBisome and flucytosine is on hold due to CHLOÉ. Fluconazole is not an option due to drug drug interactions with amiodarone. 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 Patient's did not consent for LP and has refused at [facility] and here at [facility]. Neurology service is on the case 3. Acute kidney injury, worsening, appears multifactorial including AmBisome and vasopressor need including sepsis. Started on CRRT 03/18/2021 with creatinine down to 0.8 today 4. Wounds over both buttocks and left plantar, chronic. Unable to assess today due to Compromised respiratory status with high CO2 of 94% and pH of 7.02 5. Status post tracheostomy with difficulty weaning off vent, status post BAL 02/21 with cultures positive for Strep group B and Cryptococcus neoformans. 6. Worsening respiratory failure, Patient also had been off vent for unknown period of time last Saturday per report at [facility]. Previously patient had been off ventilator at [facility], was able to speak with speaking valve. I discussed with Dr. Rose pulmonary and Chief of nursing on 03/17/2021 to clarify regarding the same. They are i nvestigating but were not able to convey how long patient had been off ventilator. They mentioned that they had family meeting at [facility] on 03/16/2021 p.m. I had discussed with at bedside on 03/16/2021 at length. He did not have Any further questions for me regarding her infection or treatment plan. 7. Leukocytosis in part reactive from steroids. C. diff negative on 02/28/2021. If she has diarrhea send C. difficile PCR 8. UTI. Urine cultures negative here. .history of Klebsiella in urine 02/20, no pyuria, likely colonization. 9. History of trach cultures positive for Corine dubliniensis at outside hospital. 10. History of Corine in urine at outside hospital. 11. History of methicillin-resistant Staphylococcus aureus in the sputum at outside hospital. 12. COVID-19 viral pneumonia with acute hypoxic respiratory failure, requiring tracheostomy 13. Oropharyngeal dysphagia, maintained on tube feedings. 14. Paroxysmal atrial fibrillation with rapid ventricular response, on amiodarone. 15. Morbid obesity. 16. History of gastrointestinal bleed. 17. Critical illness myopathy. 18. Gastroesophageal reflux disease. 19. Asthma. 20. Obstructive sleep apnea. 21. Status post left knee arthroplasty. 22. Osteoarthritis. 23. Hypothyroidism. 24. History of chronic pain. 25. Hyperlipidemia. 26. Otomastoiditis and Ear fliud collection on CT head 27. Anemia Plan: Plan of Care Patient is in multiorgan failure. 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 Limited choices for cryptococcal infection 1. AmBisome and flucytosine were on hold to CHLOÉ. Initial plan was for 2 weeks for induction therapy from 03/09/2021. Will give 1 dose of AmBisome 3 mg/kg today. Patient is on CRRT. Per discussion with pharmacy it is not available here at this time at this facility. Pharmacy will try to acquire AmBisome from other hospital. Will need only 1 dose. Further administration of AmBisome will depend on renal functions. Creatinine is down to 0.8. Fluconazole or voriconazole is not an option due to drug drug interactions with amiodarone. Another option for consideration would be salvage therapy with Cresemba. Latter is not FDA approved. But has been given for certain cases per case reports. I have discussed with pharmacy today. They will try to acquire Cresemba from outside facility.. Pharmacy to look for drug drug interactions with amiodarone and would need decreasing dose of amiodarone. Add LFTs to lab today 2. Monitor labs and cultures 3. Follow blood cultures from 03/15 and 03/16. Urine cultures remain negative so far 4. Continue empiric Merrem and linezolid . Hold micafungin for now as patient will be given AmBisome 1 dose today. Will add empiric Valtrex 500 mg p.o. daily for 5 days due to possible HSV. 5. Check C. difficile if patient has diarrhea 6. Neurology recommendations noted. Patient's had refused to consent for LP. Neurology is not recommending LP at this time either. No further imaging has been recommended by neurology at this time 8. Renal team and pulmonary is following. 9. Offload if able which is difficult at this time due to worsening respiratory status. Continue local wound care as directed. 10. Critically ill. 11. Prognosis is very poor. I have discussed with patient's RN today. ELLIOTT KELLY MD Mar 19, 2021 08:42
--- NOTE | 2021-03-19 08:56 | PDOC ---
Dialysis Progress Note Date of Service: DATE: 03/19/21 TIME: 08:50 Dialysis Note Dialysis Note Seen on CRRT. Tolerating treatment hemodynamically okay so far. Sedated on the ventilator via tracheostomy Neck: No JVD or JVP Chest: CTA Crhis Heart: S1 S2 Abdomen - Soft NTND Extremities - No Edema CHLOÉ/ATN with severe respiratory acidosis: CRRT to compensate for severe respiratory acidosis. Respiratory acidosis appears to be worsening based on trend of ABGs hence will not increase bicarb and IV fluids. Anemia: Blood transfusion as ordered by primary team. Agree with same while on CRRT Low phosphorus replace as needed Severe hypoalbuminemia: Continue tube feeds as tolerated Lowish potassium: IV K-Phos as ordered Severe respiratory distress and failure: Defer to pulmonology Prognosis is poor, patient is now a DNR Vitals Vital Signs Vital Signs Date Time Temp Pulse Resp B/P (MAP) Pulse Ox O2 Delivery O2 Flow Rate FiO2 03/19/21 08:42 86 Ventilator 03/19/21 06:00 99 28 109/57 03/19/21 04:00 94.0 94.0 03/17/21 18:24 15.0 Labs Last Labs Laboratory Tests Test 03/17/21 12:49 03/17/21 13:35 03/17/21 17:34 03/17/21 23:43 Glucose (Fingerstick) 192 mg/dL (70-99) 179 mg/dL (70-99) 247 mg/dL (70-99) Sodium Level 133 mmol/L (136-145) Potassium Level 5.0 mmol/L (3.5-5.1) Chloride Level 96 mmol/L (98-107) Carbon Dioxide Level 25 mmol/L (21-32) Anion Gap 12 (6-14) Blood Urea Nitrogen 94 mg/dL (7-20) Creatinine 2.6 mg/dL (0.6-1.0) Estimated GFR (Cockcroft-Gault) 18.3 Glucose Level 196 mg/dL (70-99) Calcium Level 7.8 mg/dL (8.5-10.1) Test 03/18/21 06:50 03/18/21 07:52 03/18/21 11:40 03/18/21 17:35 White Blood Count 17.4 x10^3/uL (4.0-11.0) Red Blood Count 2.57 x10^6/uL (3.50-5.40) Hemoglobin 7.4 g/dL (12.0-15.5) Hematocrit 24.0 % (36.0-47.0) Mean Corpuscular Volume 93 fL (79-100) Mean Corpuscular Hemoglobin 29 pg (25-35) Mean Corpuscular Hemoglobin Concent 31 g/dL (31-37) Red Cell Distribution Width 24.9 % (11.5-14.5) Platelet Count 187 x10^3/uL (140-400) Neutrophils (%) (Auto) 85 % (31-73) Lymphocytes (%) (Auto) 11 % (24-48) Monocytes (%) (Auto) 3 % (0-9) Eosinophils (%) (Auto) 0 % (0-3) Basophils (%) (Auto) 1 % (0-3) Neutrophils # (Auto) 14.7 x10^3/uL (1.8-7.7) Lymphocytes # (Auto) 1.9 x10^3/uL (1.0-4.8) Monocytes # (Auto) 0.5 x10^3/uL (0.0-1.1) Eosinophils # (Auto) 0.1 x10^3/uL (0.0-0.7) Basophils # (Auto) 0.1 x10^3/uL (0.0-0.2) Sodium Level 134 mmol/L (136-145) Potassium Level 4.4 mmol/L (3.5-5.1) Chloride Level 96 mmol/L (98-107) Carbon Dioxide Level 27 mmol/L (21-32) Anion Gap 11 (6-14) Blood Urea Nitrogen 91 mg/dL (7-20) Creatinine 2.6 mg/dL (0.6-1.0) Estimated GFR (Cockcroft-Gault) 18.3 Glucose Level 197 mg/dL (70-99) Uric Acid 7.0 mg/dL (2.6-6.0) Calcium Level 7.5 mg/dL (8.5-10.1) Magnesium Level 2.2 mg/dL (1.8-2.4) Creatine Kinase 16 U/L (26-192) Hepatitis B Surface Antigen Nonreactive (Nonreactive) Hepatitis B Surface Antibody Reactive O2 Saturation 76 % (92-99) Arterial Blood pH 7.02 (7.35-7.45) Arterial Blood pCO2 at Patient Temp 94 mmHg (35-46) Arterial Blood pO2 at Patient Temp 54 mmHg (65-108) Arterial Blood HCO3 24 mmol/L (21-28) Arterial Blood Base Excess -7 mmol/L (-3-3) FiO2 100 Glucose (Fingerstick) 191 mg/dL (70-99) 223 mg/dL (70-99) Test 03/18/21 18:44 03/18/21 21:30 03/19/21 00:15 03/19/21 00:17 Sodium Level 133 mmol/L (136-145) 133 mmol/L (136-145) Potassium Level 3.8 mmol/L (3.5-5.1) 3.7 mmol/L (3.5-5.1) Chloride Level 96 mmol/L (98-107) 97 mmol/L (98-107) Carbon Dioxide Level 30 mmol/L (21-32) 32 mmol/L (21-32) Anion Gap 7 (6-14) 4 (6-14) Blood Urea Nitrogen 56 mg/dL (7-20) 34 mg/dL (7-20) Creatinine 1.6 mg/dL (0.6-1.0) 1.2 mg/dL (0.6-1.0) Estimated GFR (Cockcroft-Gault) 32.1 44.7 Glucose Level 247 mg/dL (70-99) 308 mg/dL (70-99) Calcium Level 6.8 mg/dL (8.5-10.1) 7.5 mg/dL (8.5-10.1) Phosphorus Level 4.7 mg/dL (2.6-4.7) 3.3 mg/dL (2.6-4.7) Magnesium Level 2.7 mg/dL (1.8-2.4) 2.8 mg/dL (1.8-2.4) Urine Collection Type Unknown Urine Color Melani Urine Clarity Turbid Urine pH 5.0 (<5.0-8.0) Urine Specific Otis 1.020 (1.000-1.030) Urine Protein 100 mg/dL (NEG-TRACE) Urine Glucose (UA) 100 mg/dL (NEG) Urine Ketones (Stick) Negative mg/dL (NEG) Urine Blood Large (NEG) Urine Nitrite Negative (NEG) Urine Bilirubin Negative (NEG) Urine Urobilinogen Dipstick 0.2 mg/dL (0.2 mg/dL) Urine Leukocyte Esterase Moderate (NEG) Urine RBC 20-40 /HPF (0-2) Urine WBC 11-20 /HPF (0-4) Urine Squamous Epithelial Cells Occ /LPF Urine Amorphous Sediment Present /HPF Urine Bacteria Few /HPF (0-FEW) Urine Hyaline Casts Few /HPF Urine Granular Casts Few /HPF Urine Mucus Mod /LPF Glucose (Fingerstick) 283 mg/dL (70-99) Test 03/19/21 06:30 03/19/21 06:54 03/19/21 07:27 White Blood Count 13.8 x10^3/uL (4.0-11.0) Red Blood Count 2.16 x10^6/uL (3.50-5.40) Hemoglobin 6.3 g/dL (12.0-15.5) Hematocrit 20.2 % (36.0-47.0) Mean Corpuscular Volume 94 fL (79-100) Mean Corpuscular Hemoglobin 29 pg (25-35) Mean Corpuscular Hemoglobin Concent 31 g/dL (31-37) Red Cell Distribution Width 24.8 % (11.5-14.5) Platelet Count 138 x10^3/uL (140-400) Neutrophils (%) (Auto) 80 % (31-73) Lymphocytes (%) (Auto) 16 % (24-48) Monocytes (%) (Auto) 4 % (0-9) Eosinophils (%) (Auto) 1 % (0-3) Basophils (%) (Auto) 0 % (0-3) Neutrophils # (Auto) 11.1 x10^3/uL (1.8-7.7) Lymphocytes # (Auto) 2.1 x10^3/uL (1.0-4.8) Monocytes # (Auto) 0.5 x10^3/uL (0.0-1.1) Eosinophils # (Auto) 0.1 x10^3/uL (0.0-0.7) Basophils # (Auto) 0.0 x10^3/uL (0.0-0.2) Sodium Level 135 mmol/L (136-145) Potassium Level 3.5 mmol/L (3.5-5.1) Chloride Level 98 mmol/L (98-107) Carbon Dioxide Level 33 mmol/L (21-32) Anion Gap 4 (6-14) Blood Urea Nitrogen 22 mg/dL (7-20) Creatinine 0.8 mg/dL (0.6-1.0) Estimated GFR (Cockcroft-Gault) 71.3 Glucose Level 274 mg/dL (70-99) Calcium Level 7.6 mg/dL (8.5-10.1) Phosphorus Level 2.5 mg/dL (2.6-4.7) Magnesium Level 2.9 mg/dL (1.8-2.4) Glucose (Fingerstick) 280 mg/dL (70-99) O2 Saturation 76 % (92-99) Arterial Blood pH 7.08 (7.35-7.45) Arterial Blood pCO2 at Patient Temp 124 mmHg (35-46) Arterial Blood pO2 at Patient Temp 44 mmHg (65-108) Arterial Blood HCO3 36 mmol/L (21-28) Arterial Blood Base Excess 4 mmol/L (-3-3) FiO2 100% vent Laboratory Tests Test 03/18/21 11:40 03/18/21 17:35 03/18/21 18:44 03/18/21 21:30 Glucose (Fingerstick) 191 mg/dL (70-99) 223 mg/dL (70-99) Sodium Level 133 mmol/L (136-145) Potassium Level 3.8 mmol/L (3.5-5.1) Chloride Level 96 mmol/L (98-107) Carbon Dioxide Level 30 mmol/L (21-32) Anion Gap 7 (6-14) Blood Urea Nitrogen 56 mg/dL (7-20) Creatinine 1.6 mg/dL (0.6-1.0) Estimated GFR (Cockcroft-Gault) 32.1 Glucose Level 247 mg/dL (70-99) Calcium Level 6.8 mg/dL (8.5-10.1) Phosphorus Level 4.7 mg/dL (2.6-4.7) Magnesium Level 2.7 mg/dL (1.8-2.4) Urine Collection Type Unknown Urine Color Melani Urine Clarity Turbid Urine pH 5.0 (<5.0-8.0) Urine Specific Otis 1.020 (1.000-1.030) Urine Protein 100 mg/dL (NEG-TRACE) Urine Glucose (UA) 100 mg/dL (NEG) Urine Ketones (Stick) Negative mg/dL (NEG) Urine Blood Large (NEG) Urine Nitrite Negative (NEG) Urine Bilirubin Negative (NEG) Urine Urobilinogen Dipstick 0.2 mg/dL (0.2 mg/dL) Urine Leukocyte Esterase Moderate (NEG) Urine RBC 20-40 /HPF (0-2) Urine WBC 11-20 /HPF (0-4) Urine Squamous Epithelial Cells Occ /LPF Urine Amorphous Sediment Present /HPF Urine Bacteria Few /HPF (0-FEW) Urine Hyaline Casts Few /HPF Urine Granular Casts Few /HPF Urine Mucus Mod /LPF Test 03/19/21 00:15 03/19/21 00:17 03/19/21 06:30 03/19/21 06:54 Sodium Level 133 mmol/L (136-145) 135 mmol/L (136-145) Potassium Level 3.7 mmol/L (3.5-5.1) 3.5 mmol/L (3.5-5.1) Chloride Level 97 mmol/L (98-107) 98 mmol/L (98-107) Carbon Dioxide Level 32 mmol/L (21-32) 33 mmol/L (21-32) Anion Gap 4 (6-14) 4 (6-14) Blood Urea Nitrogen 34 mg/dL (7-20) 22 mg/dL (7-20) Creatinine 1.2 mg/dL (0.6-1.0) 0.8 mg/dL (0.6-1.0) Estimated GFR (Cockcroft-Gault) 44.7 71.3 Glucose Level 308 mg/dL (70-99) 274 mg/dL (70-99) Calcium Level 7.5 mg/dL (8.5-10.1) 7.6 mg/dL (8.5-10.1) Phosphorus Level 3.3 mg/dL (2.6-4.7) 2.5 mg/dL (2.6-4.7) Magnesium Level 2.8 mg/dL (1.8-2.4) 2.9 mg/dL (1.8-2.4) Glucose (Fingerstick) 283 mg/dL (70-99) 280 mg/dL (70-99) White Blood Count 13.8 x10^3/uL (4.0-11.0) Red Blood Count 2.16 x10^6/uL (3.50-5.40) Hemoglobin 6.3 g/dL (12.0-15.5) Hematocrit 20.2 % (36.0-47.0) Mean Corpuscular Volume 94 fL (79-100) Mean Corpuscular Hemoglobin 29 pg (25-35) Mean Corpuscular Hemoglobin Concent 31 g/dL (31-37) Red Cell Distribution Width 24.8 % (11.5-14.5) Platelet Count 138 x10^3/uL (140-400) Neutrophils (%) (Auto) 80 % (31-73) Lymphocytes (%) (Auto) 16 % (24-48) Monocytes (%) (Auto) 4 % (0-9) Eosinophils (%) (Auto) 1 % (0-3) Basophils (%) (Auto) 0 % (0-3) Neutrophils # (Auto) 11.1 x10^3/uL (1.8-7.7) Lymphocytes # (Auto) 2.1 x10^3/uL (1.0-4.8) Monocytes # (Auto) 0.5 x10^3/uL (0.0-1.1) Eosinophils # (Auto) 0.1 x10^3/uL (0.0-0.7) Basophils # (Auto) 0.0 x10^3/uL (0.0-0.2) Test 03/19/21 07:27 O2 Saturation 76 % (92-99) Arterial Blood pH 7.08 (7.35-7.45) Arterial Blood pCO2 at Patient Temp 124 mmHg (35-46) Arterial Blood pO2 at Patient Temp 44 mmHg (65-108) Arterial Blood HCO3 36 mmol/L (21-28) Arterial Blood Base Excess 4 mmol/L (-3-3) FiO2 100% vent Assessment Assessment Problems Medical Problems: (1) Anemia Status: Acute (2) Chronic respiratory failure Status: Acute (3) CKD (chronic kidney disease) Status: Acute (4) History of COVID-19 Status: Acute (5) PNA (pneumonia) Status: Acute Plan Plan of Care Problems Medical Problems: (1) Anemia Status: Acute (2) Chronic respiratory failure Status: Acute (3) CKD (chronic kidney disease) Status: Acute (4) History of COVID-19 Status: Acute (5) PNA (pneumonia) Status: Acute HUMAIRA KELLY MD Mar 19, 2021 08:56
[2021-03-19] MEDS ORDERED: NORMAL SALINE IV PRN (09:00)
[2021-03-19] MEDS ORDERED: POTASSIUM PHOS M BASIC D BASIC IV PRN (09:00)
[2021-03-19] MEDS: MEROPENEM 1 GM in IV NORMAL SALINE 100ML 100 ML IV SCH ×2 (09:02→20:41)
[2021-03-19] MEDS: AMIODARONE HCL 200 MG TABLET. PO SCH (09:03)
[2021-03-19] MEDS: valACYclovir 500 MG TABLET. PO SCH (09:03)
[2021-03-19] MEDS: METOPROLOL TART IMMED RELEASE 25 MG TABLET. PO SCH ×2 (09:04→21:00)
[2021-03-19] MEDS: POLYETHYLENE GLYCOL 3350 17 GM PACKET. PO SCH (09:04)
[2021-03-19 13:25] LABS: ALBUMIN 2.5 g/dL (3.4-5.0); DIRECT BILIRUBIN 0.1 mg/dL (0.0-0.2); TOTAL BILIRUBIN 0.3 mg/dL (0.2-1.0); TOTAL PROTEIN 5.1 g/dL (6.4-8.2)
[2021-03-19 13:53] LABS: CALCIUM 7.4 mg/dL (8.5-10.1); CREATININE 0.6 mg/dL (0.6-1.0); GFR 99.4; POTASSIUM 4.2 mmol/L (3.5-5.1)
[2021-03-19 13:56] LABS: PHOSPHORUS 3.9 mg/dL (2.6-4.7)
[2021-03-19] MEDS ORDERED: AMPHOTERICIN B LIPOSOME IV ONE (14:00)
[2021-03-19] MEDS ORDERED: DEXTROSE 5% IV ONE (14:00)
[2021-03-19 15:19] LABS: HEMOGLOBIN 7.7 g/dL (12.0-15.5)
[2021-03-19] MEDS ORDERED: PHENYLEPHRINE INJ 50 MG in IV NORMAL SALINE 250ML 250 ML IV PRN (18:30)
[2021-03-19] MEDS: fentaNYL HIGH DOSE PCA 55 ML IV PRN (20:02)
[2021-03-19 20:41] LABS: CALCIUM 7.9 mg/dL (8.5-10.1); CREATININE 0.6 mg/dL (0.6-1.0); GFR 99.4; MAGNESIUM 3.1 mg/dL (1.8-2.4); PHOSPHORUS 2.4 mg/dL (2.6-4.7); POTASSIUM 3.7 mmol/L (3.5-5.1)
[2021-03-19 20:43] LABS: HEMATOCRIT 23.8 % (36.0-47.0); HEMOGLOBIN 7.4 g/dL (12.0-15.5); RED BLOOD COUNT 2.57 x10^6/uL (3.50-5.40); RED CELL DISTRIBUTION WIDTH 23.9 % (11.5-14.5); WHITE BLOOD COUNT 18.3 x10^3/uL (4.0-11.0)
[2021-03-19] MEDS: POTASSIUM PHOS M BASIC D BASIC IV SCH (22:16)
[2021-03-19] MEDS: NORMAL SALINE IV SCH (22:16)
[2021-03-19] MEDS ORDERED: POTASSIUM PHOS,M-BASIC-D-BASIC 13.6 MMOL in IV NORMAL SALINE 250ML 250 ML IV SCH (22:30)
[2021-03-19] MEDS ORDERED: NORMAL SALINE IV SCH (22:30)
[2021-03-19] MEDS ORDERED: POTASSIUM PHOS M BASIC D BASIC IV SCH (22:30)
[2021-03-20] VITALS (18 sets, daily range): BP systolic 76–110; BP diastolic 40–59
[2021-03-20] MEDS: NORMAL SALINE IV SCH ×2 (00:03→02:19)
[2021-03-20] MEDS: POTASSIUM PHOS M BASIC D BASIC IV SCH ×2 (00:03→02:19)
[2021-03-20] MEDS: INSULIN LISPRO 300 UNITS/3 ML VIAL. SQ SCH ×4 (00:24→18:00)
[2021-03-20] MEDS: DEXMEDETOMIDINE 400 MCG in IV NORMAL SALINE 100ML 96 ML IV PRN ×8 (01:51→22:07)
[2021-03-20] MEDS: NOREPINEPHRINE VIAL 32 MG in IV D5W 250ML IV PRN ×5 (01:52→19:26)
[2021-03-20] MEDS: SODIUM BICARBONATE VIAL 150 MEQ in IV DEXTROSE 5% 1,000 ML IV SCH ×8 (02:30→20:12)
[2021-03-20] MEDS: [UNRECOGNIZED DRUG - OTHER] IV SCH ×18 (02:32→20:49)
[2021-03-20] MEDS: POTASSIUM CHLORIDE IV SCH ×18 (02:32→20:49)
[2021-03-20] MEDS: CALCIUM CHLORIDE IV SCH ×18 (02:32→20:49)
[2021-03-20] MEDS: MAGNESIUM SULFATE IV SCH ×18 (02:32→20:49)
[2021-03-20 05:55] LABS: BASO % 0 % (0-3); EOS # 0.2 x10^3/uL (0.0-0.7); EOS % 1 % (0-3); HEMATOCRIT 23.1 % (36.0-47.0); HEMOGLOBIN 7.2 g/dL (12.0-15.5); LYMPH # 1.7 x10^3/uL (1.0-4.8); LYMPH % 13 % (24-48); MEAN CORPUSCULAR HEMOGLOBIN 29 pg (25-35); MEAN CORPUSCULAR HGB CONC 31 g/dL (31-37); MEAN CORPUSCULAR VOLUME 92 fL (79-100); MONO # 0.4 x10^3/uL (0.0-1.1); MONO % 3 % (0-9); NEUT # 11.1 x10^3/uL (1.8-7.7); NEUT % 82 % (31-73); PLATELET COUNT 92 x10^3/uL (140-400); RED BLOOD COUNT 2.51 x10^6/uL (3.50-5.40); RED CELL DISTRIBUTION WIDTH 23.8 % (11.5-14.5); WHITE BLOOD COUNT 13.4 x10^3/uL (4.0-11.0)
[2021-03-20] MEDS: HEPARIN for SUB-Q USE 5,000 UNIT/ML VIAL. SQ SCH ×2 (05:56→14:36)
[2021-03-20 06:19] LABS: ALBUMIN 2.2 g/dL (3.4-5.0); ALBUMIN/GLOBULIN RATIO 0.7 (1.0-1.7); CALCIUM 7.9 mg/dL (8.5-10.1); CREATININE 0.4 mg/dL (0.6-1.0); GFR 158.7; MAGNESIUM 3.3 mg/dL (1.8-2.4); POTASSIUM 4.3 mmol/L (3.5-5.1); TOTAL BILIRUBIN 0.4 mg/dL (0.2-1.0); TOTAL PROTEIN 5.4 g/dL (6.4-8.2)
--- NOTE | 2021-03-20 06:43 | RAD ---
XR CHEST 1V 03/20/2021 5:11 AM INDICATION: Respiratory failure COMPARISON: 03/19/2021 TECHNIQUE: Portable frontal view of the chest is provided. FINDINGS/ IMPRESSION: Right IJ central venous catheter is in similar position. Tracheostomy tube is in appropriate position . The cardiomediastinal silhouette is similar in appearance. Coarse reticular interstitial changes in the perihilar distribution appears similar to prior examination. There is persistent left retrocardi ac density. Aeration of the lungs appears similar to prior examination. No significant pleural effusi ons or pneumothorax. Electronically signed by: Renay Norton MD (03/20/2021 6:41 AM) [facility]
[2021-03-20] MEDS: IPRATRPIUM/ALBUTEROL 0.5/2.5MG 3 ML NEBU. NEB SCH ×3 (08:25→19:25)
--- NOTE | 2021-03-20 08:30 | PDOC ---
PULMONARY PROGRESS NOTES DATE: 03/20/21 TIME: 08:30 Subjective Patient currently on pressure control, 100% FiO2 14 of PEEP Hypotensive started on Levophed On CRRT Vitals Vital Signs Date Time Temp Pulse Resp B/P (MAP) Pulse Ox O2 Delivery O2 Flow Rate FiO2 03/20/21 07:50 88 Ventilator 03/20/21 06:00 99 36 91/48 03/20/21 04:00 97.6 97.6 03/19/21 20:32 15.0 Comments Patient sedated on mechanical support, unable to review review of system Lungs: Clear Cardiovascular: S1, S2 Abdomen: Other (Obese) Extremities: Other (Edema) Skin: Warm Labs Laboratory Tests Test 03/18/21 11:40 03/18/21 17:35 03/18/21 18:44 03/18/21 21:30 Glucose (Fingerstick) 191 mg/dL (70-99) 223 mg/dL (70-99) Sodium Level 133 mmol/L (136-145) Potassium Level 3.8 mmol/L (3.5-5.1) Chloride Level 96 mmol/L (98-107) Carbon Dioxide Level 30 mmol/L (21-32) Anion Gap 7 (6-14) Blood Urea Nitrogen 56 mg/dL (7-20) Creatinine 1.6 mg/dL (0.6-1.0) Estimated GFR (Cockcroft-Gault) 32.1 Glucose Level 247 mg/dL (70-99) Calcium Level 6.8 mg/dL (8.5-10.1) Phosphorus Level 4.7 mg/dL (2.6-4.7) Magnesium Level 2.7 mg/dL (1.8-2.4) Urine Collection Type Unknown Urine Color Melani Urine Clarity Turbid Urine pH 5.0 (<5.0-8.0) Urine Specific Junior 1.020 (1.000-1.030) Urine Protein 100 mg/dL (NEG-TRACE) Urine Glucose (UA) 100 mg/dL (NEG) Urine Ketones (Stick) Negative mg/dL (NEG) Urine Blood Large (NEG) Urine Nitrite Negative (NEG) Urine Bilirubin Negative (NEG) Urine Urobilinogen Dipstick 0.2 mg/dL (0.2 mg/dL) Urine Leukocyte Esterase Moderate (NEG) Urine RBC 20-40 /HPF (0-2) Urine WBC 11-20 /HPF (0-4) Urine Squamous Epithelial Cells Occ /LPF Urine Amorphous Sediment Present /HPF Urine Bacteria Few /HPF (0-FEW) Urine Hyaline Casts Few /HPF Urine Granular Casts Few /HPF Urine Mucus Mod /LPF Test 03/19/21 00:15 03/19/21 00:17 03/19/21 06:30 03/19/21 06:54 Sodium Level 133 mmol/L (136-145) 135 mmol/L (136-145) Potassium Level 3.7 mmol/L (3.5-5.1) 3.5 mmol/L (3.5-5.1) Chloride Level 97 mmol/L (98-107) 98 mmol/L (98-107) Carbon Dioxide Level 32 mmol/L (21-32) 33 mmol/L (21-32) Anion Gap 4 (6-14) 4 (6-14) Blood Urea Nitrogen 34 mg/dL (7-20) 22 mg/dL (7-20) Creatinine 1.2 mg/dL (0.6-1.0) 0.8 mg/dL (0.6-1.0) Estimated GFR (Cockcroft-Gault) 44.7 71.3 Glucose Level 308 mg/dL (70-99) 274 mg/dL (70-99) Calcium Level 7.5 mg/dL (8.5-10.1) 7.6 mg/dL (8.5-10.1) Phosphorus Level 3.3 mg/dL (2.6-4.7) 2.5 mg/dL (2.6-4.7) Magnesium Level 2.8 mg/dL (1.8-2.4) 2.9 mg/dL (1.8-2.4) Glucose (Fingerstick) 283 mg/dL (70-99) 280 mg/dL (70-99) White Blood Count 13.8 x10^3/uL (4.0-11.0) Red Blood Count 2.16 x10^6/uL (3.50-5.40) Hemoglobin 6.3 g/dL (12.0-15.5) Hematocrit 20.2 % (36.0-47.0) Mean Corpuscular Volume 94 fL (79-100) Mean Corpuscular Hemoglobin 29 pg (25-35) Mean Corpuscular Hemoglobin Concent 31 g/dL (31-37) Red Cell Distribution Width 24.8 % (11.5-14.5) Platelet Count 138 x10^3/uL (140-400) Neutrophils (%) (Auto) 80 % (31-73) Lymphocytes (%) (Auto) 16 % (24-48) Monocytes (%) (Auto) 4 % (0-9) Eosinophils (%) (Auto) 1 % (0-3) Basophils (%) (Auto) 0 % (0-3) Neutrophils # (Auto) 11.1 x10^3/uL (1.8-7.7) Lymphocytes # (Auto) 2.1 x10^3/uL (1.0-4.8) Monocytes # (Auto) 0.5 x10^3/uL (0.0-1.1) Eosinophils # (Auto) 0.1 x10^3/uL (0.0-0.7) Basophils # (Auto) 0.0 x10^3/uL (0.0-0.2) Test 03/19/21 07:27 03/19/21 11:37 03/19/21 12:50 03/19/21 15:00 O2 Saturation 76 % (92-99) Arterial Blood pH 7.08 (7.35-7.45) Arterial Blood pCO2 at Patient Temp 124 mmHg (35-46) Arterial Blood pO2 at Patient Temp 44 mmHg (65-108) Arterial Blood HCO3 36 mmol/L (21-28) Arterial Blood Base Excess 4 mmol/L (-3-3) FiO2 100% vent Glucose (Fingerstick) 273 mg/dL (70-99) Sodium Level 134 mmol/L (136-145) Potassium Level 4.2 mmol/L (3.5-5.1) Chloride Level 98 mmol/L (98-107) Carbon Dioxide Level 33 mmol/L (21-32) Anion Gap 3 (6-14) Blood Urea Nitrogen 15 mg/dL (7-20) Creatinine 0.6 mg/dL (0.6-1.0) Estimated GFR (Cockcroft-Gault) 99.4 Glucose Level 278 mg/dL (70-99) Calcium Level 7.4 mg/dL (8.5-10.1) Phosphorus Level 3.9 mg/dL (2.6-4.7) Magnesium Level 3.0 mg/dL (1.8-2.4) Total Bilirubin 0.3 mg/dL (0.2-1.0) Direct Bilirubin 0.1 mg/dL (0.0-0.2) Aspartate Amino Transf (AST/SGOT) 20 U/L (15-37) Alanine Aminotransferase (ALT/SGPT) 28 U/L (14-59) Alkaline Phosphatase 92 U/L (46-116) Ammonia 70 mcmol/L (11-34) Total Protein 5.1 g/dL (6.4-8.2) Albumin 2.5 g/dL (3.4-5.0) Hemoglobin 7.7 g/dL (12.0-15.5) Hematocrit 24.0 % (36.0-47.0) Mean Corpuscular Hemoglobin Concent 32 g/dL (31-37) Test 03/19/21 17:19 03/19/21 20:15 03/20/21 00:20 03/20/21 05:20 Glucose (Fingerstick) 277 mg/dL (70-99) 258 mg/dL (70-99) White Blood Count 18.3 x10^3/uL (4.0-11.0) 13.4 x10^3/uL (4.0-11.0) Red Blood Count 2.57 x10^6/uL (3.50-5.40) 2.51 x10^6/uL (3.50-5.40) Hemoglobin 7.4 g/dL (12.0-15.5) 7.2 g/dL (12.0-15.5) Hematocrit 23.8 % (36.0-47.0) 23.1 % (36.0-47.0) Mean Corpuscular Volume 93 fL (79-100) 92 fL (79-100) Mean Corpuscular Hemoglobin 29 pg (25-35) 29 pg (25-35) Mean Corpuscular Hemoglobin Concent 31 g/dL (31-37) 31 g/dL (31-37) Red Cell Distribution Width 23.9 % (11.5-14.5) 23.8 % (11.5-14.5) Platelet Count 94 x10^3/uL (140-400) 92 x10^3/uL (140-400) Sodium Level 135 mmol/L (136-145) 133 mmol/L (136-145) Potassium Level 3.7 mmol/L (3.5-5.1) 4.3 mmol/L (3.5-5.1) Chloride Level 98 mmol/L (98-107) 99 mmol/L (98-107) Carbon Dioxide Level 35 mmol/L (21-32) 34 mmol/L (21-32) Anion Gap 2 (6-14) 0 (6-14) Blood Urea Nitrogen 11 mg/dL (7-20) 7 mg/dL (7-20) Creatinine 0.6 mg/dL (0.6-1.0) 0.4 mg/dL (0.6-1.0) Estimated GFR (Cockcroft-Gault) 99.4 158.7 Glucose Level 247 mg/dL (70-99) 265 mg/dL (70-99) Calcium Level 7.9 mg/dL (8.5-10.1) 7.9 mg/dL (8.5-10.1) Phosphorus Level 2.4 mg/dL (2.6-4.7) 3.0 mg/dL (2.6-4.7) Magnesium Level 3.1 mg/dL (1.8-2.4) 3.3 mg/dL (1.8-2.4) Neutrophils (%) (Auto) 82 % (31-73) Lymphocytes (%) (Auto) 13 % (24-48) Monocytes (%) (Auto) 3 % (0-9) Eosinophils (%) (Auto) 1 % (0-3) Basophils (%) (Auto) 0 % (0-3) Neutrophils # (Auto) 11.1 x10^3/uL (1.8-7.7) Lymphocytes # (Auto) 1.7 x10^3/uL (1.0-4.8) Monocytes # (Auto) 0.4 x10^3/uL (0.0-1.1) Eosinophils # (Auto) 0.2 x10^3/uL (0.0-0.7) Basophils # (Auto) 0.0 x10^3/uL (0.0-0.2) BUN/Creatinine Ratio 18 (6-20) Total Bilirubin 0.4 mg/dL (0.2-1.0) Aspartate Amino Transf (AST/SGOT) 21 U/L (15-37) Alanine Aminotransferase (ALT/SGPT) 24 U/L (14-59) Alkaline Phosphatase 95 U/L (46-116) Total Protein 5.4 g/dL (6.4-8.2) Albumin 2.2 g/dL (3.4-5.0) Albumin/Globulin Ratio 0.7 (1.0-1.7) Test 03/20/21 05:52 Glucose (Fingerstick) 221 mg/dL (70-99) Laboratory Tests Test 03/19/21 11:37 03/19/21 12:50 03/19/21 15:00 03/19/21 17:19 Glucose (Fingerstick) 273 mg/dL (70-99) 277 mg/dL (70-99) Sodium Level 134 mmol/L (136-145) Potassium Level 4.2 mmol/L (3.5-5.1) Chloride Level 98 mmol/L (98-107) Carbon Dioxide Level 33 mmol/L (21-32) Anion Gap 3 (6-14) Blood Urea Nitrogen 15 mg/dL (7-20) Creatinine 0.6 mg/dL (0.6-1.0) Estimated GFR (Cockcroft-Gault) 99.4 Glucose Level 278 mg/dL (70-99) Calcium Level 7.4 mg/dL (8.5-10.1) Phosphorus Level 3.9 mg/dL (2.6-4.7) Magnesium Level 3.0 mg/dL (1.8-2.4) Total Bilirubin 0.3 mg/dL (0.2-1.0) Direct Bilirubin 0.1 mg/dL (0.0-0.2) Aspartate Amino Transf (AST/SGOT) 20 U/L (15-37) Alanine Aminotransferase (ALT/SGPT) 28 U/L (14-59) Alkaline Phosphatase 92 U/L (46-116) Ammonia 70 mcmol/L (11-34) Total Protein 5.1 g/dL (6.4-8.2) Albumin 2.5 g/dL (3.4-5.0) Hemoglobin 7.7 g/dL (12.0-15.5) Hematocrit 24.0 % (36.0-47.0) Mean Corpuscular Hemoglobin Concent 32 g/dL (31-37) Test 03/19/21 20:15 03/20/21 00:20 03/20/21 05:20 03/20/21 05:52 White Blood Count 18.3 x10^3/uL (4.0-11.0) 13.4 x10^3/uL (4.0-11.0) Red Blood Count 2.57 x10^6/uL (3.50-5.40) 2.51 x10^6/uL (3.50-5.40) Hemoglobin 7.4 g/dL (12.0-15.5) 7.2 g/dL (12.0-15.5) Hematocrit 23.8 % (36.0-47.0) 23.1 % (36.0-47.0) Mean Corpuscular Volume 93 fL (79-100) 92 fL (79-100) Mean Corpuscular Hemoglobin 29 pg (25-35) 29 pg (25-35) Mean Corpuscular Hemoglobin Concent 31 g/dL (31-37) 31 g/dL (31-37) Red Cell Distribution Width 23.9 % (11.5-14.5) 23.8 % (11.5-14.5) Platelet Count 94 x10^3/uL (140-400) 92 x10^3/uL (140-400) Sodium Level 135 mmol/L (136-145) 133 mmol/L (136-145) Potassium Level 3.7 mmol/L (3.5-5.1) 4.3 mmol/L (3.5-5.1) Chloride Level 98 mmol/L (98-107) 99 mmol/L (98-107) Carbon Dioxide Level 35 mmol/L (21-32) 34 mmol/L (21-32) Anion Gap 2 (6-14) 0 (6-14) Blood Urea Nitrogen 11 mg/dL (7-20) 7 mg/dL (7-20) Creatinine 0.6 mg/dL (0.6-1.0) 0.4 mg/dL (0.6-1.0) Estimated GFR (Cockcroft-Gault) 99.4 158.7 Glucose Level 247 mg/dL (70-99) 265 mg/dL (70-99) Calcium Level 7.9 mg/dL (8.5-10.1) 7.9 mg/dL (8.5-10.1) Phosphorus Level 2.4 mg/dL (2.6-4.7) 3.0 mg/dL (2.6-4.7) Magnesium Level 3.1 mg/dL (1.8-2.4) 3.3 mg/dL (1.8-2.4) Glucose (Fingerstick) 258 mg/dL (70-99) 221 mg/dL (70-99) Neutrophils (%) (Auto) 82 % (31-73) Lymphocytes (%) (Auto) 13 % (24-48) Monocytes (%) (Auto) 3 % (0-9) Eosinophils (%) (Auto) 1 % (0-3) Basophils (%) (Auto) 0 % (0-3) Neutrophils # (Auto) 11.1 x10^3/uL (1.8-7.7) Lymphocytes # (Auto) 1.7 x10^3/uL (1.0-4.8) Monocytes # (Auto) 0.4 x10^3/uL (0.0-1.1) Eosinophils # (Auto) 0.2 x10^3/uL (0.0-0.7) Basophils # (Auto) 0.0 x10^3/uL (0.0-0.2) BUN/Creatinine Ratio 18 (6-20) Total Bilirubin 0.4 mg/dL (0.2-1.0) Aspartate Amino Transf (AST/SGOT) 21 U/L (15-37) Alanine Aminotransferase (ALT/SGPT) 24 U/L (14-59) Alkaline Phosphatase 95 U/L (46-116) Total Protein 5.4 g/dL (6.4-8.2) Albumin 2.2 g/dL (3.4-5.0) Albumin/Globulin Ratio 0.7 (1.0-1.7) Medications Active Scripts Medications Dose Route/Sig Max Daily Dose Days Date Category Dose Instructions Miralax (Polyethylene Glycol 3350) 17 Gm Powd.pack 1 Packet PO DAILY 2 03/16/21 Reported dissolve in water Protonix Packet (Pantoprazole Sodium) 40 Mg Granpkt.dr 40 Mg PO DAILY 03/16/21 Reported Metoprolol Tartrate 25 Mg Tablet 1 Tab PO BID 03/16/21 Reported Methylprednisolone Sod Succ 40 Mg Vial 60 Mg IV BID 03/16/21 Reported Duoneb 0.5-3(2.5) Mg/3 Ml (Albuterol/Ipratropium) 3 Ml Ampul.neb 3 Ml NEB QID 03/16/21 Reported Humalog (Insulin Lispro) 100 Unit/1 Ml Vial 6 Unit SQ Q6HRS 03/16/21 Reported Humalog (Insulin Lispro) 100 Unit/1 Ml Cartridge 0-6 Unit SQ Q6HRS 03/16/21 Reported Lantus Solostar (Insulin Glargine,Hum.rec.anlog) 100 Unit/1 Ml Insuln.pen 14 Unit SQ BID 03/16/21 Reported Ferrous Sulfate 325 Mg Tablet 1 Tab PO BID 03/16/21 Reported Diltiazem Hcl Tablet (Diltiazem Hcl) 60 Mg Tablet 60 Mg PO QID 03/16/21 Reported Eliquis (Apixaban) 5 Mg Tablet 5 Mg PO DAILY 03/16/21 Reported [amphotericin] 650 Mg IV DAILY 03/16/21 Reported Amiodarone Hcl 400 Mg Tablet 1 Tab PO DAILY 30 03/16/21 Reported Norepinephrine 8 mg/250 ml-D5w (Norepinephrine Bitartrate/D5w) 8 Mg/250 Ml Plast..bag 8 Mg IV PRN PRN 03/16/21 Reported Dexmedetomidin 400Mcg/100Ml-Ns (Dexmedetomidine in 0.9 % NaCl) 400 Mcg/100 Ml Infus..btl 400 Mcg IV PRN PRN 03/16/21 Reported Impression . IMPRESSION: 1. Acute on chronic respiratory failure, multifactorial. 2. COVID-19 viral pneumonia, sepsis, acute respiratory distress syndrome, complicated with cryptococcal infection. 3. Cryptococcal pneumonia. 4. 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 5. Acute renal failure. 6. Septic shock. 7. Severe protein malnutrition, present upon admission. 8. Status post percutaneous endoscopic gastrostomy and trach. 9. Asthma. 10. Gastroesophageal reflux. 11. Obesity. 12. Chronic atrial fibrillation. The patient currently on amiodarone. 13. Acute blood loss anemia status post transfusion Chest x-ray Right IJ central venous catheter is in similar position. Tracheostomy tube is in appropriate position. The cardiomediastinal silhouette is similar in appearanc e. Coarse reticular interstitial changes in the perihilar distribution appears similar to prior examination. There is persistent left retrocardiac density. Aeration of the lungs appears similar to prior examination. No significant pleural effusions or pneumothorax. Plan . Updated 03/[address] Almaraz, continue CRRT Initiate Levophed to maintain MAP above 60 Continue amphotericin B per ID Prognosis is poor, doubt patient will survive Monitor labs Chest x-ray reviewed Nutritional support Updated 03/19 1. cont vent support setting reviewed peep fio2 titration as tolerated on pc abg reviewed vt in 300 paralyze change to ac vt 500 cc increase rr to 34 consulted surgery has trach leak may need trach change 2. Continue antibiotics and amphotericin B per ID. 3. s/p Hemodialysis catheter 03/17 no crrt sats slightly better 4. Continue sedation. 5. DVT prophylaxis. 6. Nutritional support. 7. Monitor for any amiodarone-induced lung injury. 8. Titrate Levophed/vaso for mean arterial pressure above 60. prognosis very poor nothing else to offer DNR discussed w rn, rt KRISTIE Alvarado MD Mar 20, 2021 08:30
[2021-03-20 08:46] LABS: BASE EXCESS ABG 4 mmol/L (-3-3); HCO3 ABG 34 mmol/L (21-28); SAT O2 ABG 75 % (92-99)
[2021-03-20] MEDS: LANSOPRAZOLE 30 MG TAB.RAP.DR PEG SCH (08:48)
[2021-03-20] MEDS: POLYETHYLENE GLYCOL 3350 17 GM PACKET. PO SCH (08:48)
[2021-03-20] MEDS: AMIODARONE HCL 200 MG TABLET. PO SCH (08:48)
[2021-03-20] MEDS: MEROPENEM 1 GM in IV NORMAL SALINE 100ML 100 ML IV SCH (08:48)
[2021-03-20] MEDS: valACYclovir 500 MG TABLET. PO SCH (08:48)
[2021-03-20] MEDS: METOPROLOL TART IMMED RELEASE 25 MG TABLET. PO SCH ×2 (08:49→21:00)
[2021-03-20 08:51] LABS: FIO2 ABG 100; PCO2 ABG 99 mmHg (35-46); PO2 ABG < 42 mmHg (65-108)
--- NOTE | 2021-03-20 09:17 | PDOC2 ---
[facility] TECH 03/20/21 0917: CONSULT Date of Consult Date of Consult DATE: 03/20/21 TIME: 08:59 Reason for Consult Reason for Consult: trach replacement Referring Physician Referring Physician: Dr Yoon Identification/Chief Complaint Chief Complaint renal failure Source Source: Caregiver, Chart review History of Present Illness Reason for Visit: LTAC tx for worsening renal failure vent management, complicated Covid 19 case Trach and Peg in December --[address] treated for cryptococcus -and improving resp status last week worsening status, unresponsive, progressive multi-system organ failure surgical consult for trach replacement, due to air leak per notes Past Medical History Cardiovascular: AFIB, HTN, Hyperlipidemia Pulmonary: Asthma, COPD, Other (Sleep apnea on CPAP) GI: GI bleed, Peptic Ulcer disease Musculoskeletal: Osteoarthritis Infectious disease: Other (COVID-19) Renal/: Acute renal failure Endocrine: Diabetes, Hypothyroidism Past Surgical History Past Surgical History: Total knee replacement (Left), Other (right rotator cuff repair, left carpal tunnel. PEG and tracheostomy this illness) Family History Family History: High Cholestrol Social History No ALCOHOL: none Drugs: None Current Problem List Problem List Problems Medical Problems: (1) Anemia Status: Acute (2) Chronic respiratory failure Status: Acute (3) CKD (chronic kidney disease) Status: Acute (4) History of COVID-19 Status: Acute (5) PNA (pneumonia) Status: Acute Current Medications Current Medications Current Medications Midazolam HCl (Versed) 2 mg STK-MED ONCE .ROUTE ; Start 03/16/21 at 13:52; Stop 03/16/21 at 13:53; Status DC Dexmedetomidine HCl 400 mcg/ Sodium Chloride 100 ml @ 0 mls/hr CONT PRN IV PER PROTOCOL Last administered on 03/20/21at 06:25; Start 03/16/21 at 14:00 Sodium Chloride 500 ml @ 500 mls/hr 1X PRN PRN IV SEE COMMENTS; Start 03/16/21 at 14:00 Atropine Sulfate (ATROPINE 0.5mg SYRINGE) 0.5 mg PRN Q5MIN PRN IV SEE COMMENTS; Start 03/16/21 at 14:00 Norepinephrine Bitartrate 8 mg/ Dextrose 258 ml @ 27.864 mls/ hr 1X ONCE IV Last administered on 03/16/21at 14:13; Start 03/16/21 at 14:00; Stop 03/16/21 at 23:15; Status DC Midazolam HCl (Versed) 2 mg 1X ONCE IVP Last administered on 03/16/21at 13:58; Start 03/16/21 at 14:00; Stop 03/16/21 at 14:01; Status DC Calcium Gluconate (Calcium Gluconate) 1,000 mg 1X ONCE IVP Last administered on 03/16/21at 15:01; Start 03/16/21 at 14:45; Stop 03/16/21 at 14:46; Status DC Midazolam HCl (Versed) 5 mg 1X ONCE NS Last administered on 03/16/21at 14:41; Start 03/16/21 at 14:45; Stop 03/16/21 at 14:46; Status DC Midazolam HCl 100 ml @ 1 mls/hr CONT PRN IV SEE PROTOCOL Last administered on 03/19/21at 22:49; Start 03/16/21 at 15:00 Propofol 100 ml @ As Directed STK-MED ONCE IV ; Start 03/16/21 at 14:55; Stop 03/16/21 at 14:55; Status DC Acetaminophen (Tylenol) 650 mg PRN Q4HRS PRN PO FEVER > 100.3'F; Start 03/16/21 at 16:30; Stop 03/17/21 at 16:29; Status DC Nitroglycerin (Nitrostat) 0.4 mg PRN Q5MIN PRN SL CHEST PAIN; Start 03/16/21 at 16:30; Stop 03/17/21 at 16:29; Status DC Fentanyl Citrate 30 ml @ 0 mls/hr CONT PRN IV SEE PROTOCOL Last administered on 03/17/21at 11:39; Start 03/16/21 at 18:00; Stop 03/18/21 at 02:00; Status DC Vecuronium [place] (Norcuron Bolus) 10 mg 1X ONCE IV Last administered on 03/16/21at 18:06; Start 03/16/21 at 18:00; Stop 03/16/21 at 18:01; Status DC Meropenem 500 mg/ Sodium Chloride 50 ml @ 100 mls/hr Q8H IV Last administered on 03/17/21at 04:12; Start 03/16/21 at 20:00; Stop 03/17/21 at 04:30; Status DC Linezolid/Dextrose 300 ml @ 300 mls/hr Q12HR IV Last administered on 03/20/21at 08:47; Start 03/16/21 at 21:00 Micafungin Sodium 100 mg/Dextrose 100 ml @ 100 mls/hr Q24H IV Last administered on 03/18/21at 21:41; Start 03/16/21 at 22:00; Stop 03/19/21 at 12:18; Status DC Pharmacy Consult (C.diff Med Screen By Rx) 1 each 1X ONCE MC ; Start 03/16/21 at 23:45; Stop 03/16/21 at 23:46; Status DC Albuterol/ Ipratropium (Duoneb) 3 ml QID NEB Last administered on 03/20/21at 08:25; Start 03/17/21 at 09:00 Metoprolol Tartrate (Lopressor) 25 mg BID PO ; Start 03/17/21 at 09:00 Polyethylene Glycol (miraLAX PACKET) 17 gm DAILY PO Last administered on 03/20/21at 08:48; Start 03/17/21 at 09:00 Amiodarone HCl (Cordarone) 200 mg DAILY PO Last administered on 03/20/21at 08:48; Start 03/17/21 at 09:00 Pantoprazole Sodium (Protonix) 40 mg DAILYAC PO ; Start 03/17/21 at 07:30; Status Cancel Insulin Human Lispro (HumaLOG) 0-9 UNITS Q6HRS SQ Last administered on 03/20/21at 05:55; Start 03/17/21 at 06:00 Dextrose (Dextrose 50%-Water Syringe) 12.5 gm PRN Q15MIN PRN IV SEE COMMENTS; Start 03/17/21 at 02:45 Meropenem 500 mg/ Sodium Chloride 50 ml @ 100 mls/hr Q8HRS IV Last administ ered on 03/18/21at 13:59; Start 03/17/21 at 14:00; Stop 03/18/21 at 14:47; Status DC Heparin Sodium (Porcine) (Heparin Sodium) 5,000 unit Q8HRS SQ Last administered on 03/20/21at 05:56; Start 03/17/21 at 06:00 Lansoprazole (Prevacid) 30 mg DAILY07 PEG Last administered on 03/20/21at 08:48; Start 03/17/21 at 09:00 Norepinephrine Bitartrate 8 mg/ Dextrose 258 ml @ 26.703 mls/ hr CONT PRN IV PER PROTOCOL Last administered on 03/17/21at 15:22; Start 03/17/21 at 09:00; Stop 03/17/21 at 20:36; Status DC Sodium Bicarbonate (Sodium Bicarb Adult 8.4% Syr) 150 meq 1X ONCE IV Last administered on 03/17/21at 12:58; Start 03/17/21 at 12:30; Stop 03/17/21 at 12:32; Status DC Vecuronium [place] (Norcuron Bolus) 10 mg STK-MED ONCE IV ; Start 03/17/21 at 12:32; Stop 03/17/21 at 12:32; Status DC Vecuronium [place] (Norcuron Bolus) 6 mg PRN Q4HRS PRN IV VENTILATOR COMPLIANCE Last administered on 03/19/21at 16:45; Start 03/17/21 at 12:45 Lidocaine HCl (Buffered Lidocaine 1%) 3 ml STK-MED ONCE .ROUTE ; Start 03/17/21 at 13:01; Stop 03/17/21 at 13:02; Status DC Lidocaine HCl (Buffered Lidocaine 1%) 3 ml 1X ONCE INJ Last administered on 03/17/21at 13:22; Start 03/17/21 at 13:30; Stop 03/17/21 at 13:31; Status DC Fentanyl Citrate 55 ml @ 0 mls/hr CONT PRN IV SEE PROTOCOL Last administered on 03/19/21at 20:02; Start 03/17/21 at 17:00 Norepinephrine Bitartrate 32 mg/ Dextrose 250 ml @ 6.464 mls/ hr CONT PRN IV SEE I/O RECORD Last administered on 03/20/21at 06:26; Start 03/17/21 at 20:45 Valacyclovir HCl (Valtrex) 500 mg DAILY PO Last administered on 03/20/21at 08:48; Start 03/18/21 at 09:00; Stop 03/22/21 at 09:00 Potassium Chloride 20 meq/ Magnesium Sulfate 5 meq/Calcium Chloride 2.5 meq/ Bicarbonate Dialysis Soln w/ out KCl 5,013.0357 ml @ 2,000 mls/hr Q2H31M IV Last administered on 03/18/21at 18:30; Start 03/18/21 at 13:00; Stop 03/18/21 at 20:59; Status DC Potassium Chloride 20 meq/ Magnesium Sulfate 5 meq/Calcium Chloride 2.5 meq/ Bicarbonate Dialysis Soln w/ out KCl 5,013.0357 ml @ 2,000 mls/hr Q2H31M IV Last administered on 03/18/21at 18:30; Start 03/18/21 at 13:00; Stop 03/18/21 at 20:59; Status DC Sodium Bicarbonate 150 meq/Dextrose 1,150 ml @ 500 mls/hr Q2H18M IV Last administered on 03/20/21at 07:06; Start 03/18/21 at 13:00 Vasopressin 20 unit/Dextrose 101 ml @ 12 mls/hr CONT PRN IV SEE I/O RECORD Last administered on 03/19/21at 22:15; Start 03/18/21 at 14:15 Meropenem 1 gm/ Sodium Chloride 100 ml @ 200 mls/hr Q12HR IV Last administered on 03/20/21at 08:48; Start 03/18/21 at 21:00 Albumin Human 500 ml @ 125 mls/hr 1X ONCE IV Last administered on 03/18/21at 15:15; Start 03/18/21 at 15:15; Stop 03/18/21 at 19:14; Status DC Albumin Human 500 ml @ 125 mls/hr 1X ONCE IV Last administered on 03/18/21at 20:41; Start 03/18/21 at 19:30; Stop 03/18/21 at 23:29; Status DC Potassium Chloride 20 meq/ Magnesium Sulfate 5 meq/Calcium Chloride 5 meq/ Bicarbonate Dialysis Soln w/ out KCl 5,014.8214 ml @ 2,000 mls/hr Q2H31M IV Last administered on 03/20/21at 07:45; Start 03/18/21 at 21:00 Potassium Chloride 20 meq/ Magnesium Sulfate 5 meq/Calcium Chloride 5 meq/ Bicarbonate Dialysis Soln w/ out KCl 5,014.8214 ml @ 2,000 mls/hr Q2H31M IV Last administered on 03/20/21at 07:45; Start 03/18/21 at 21:00 Potassium Phosphate 40 mmol/ Sodium Chloride 113.3333 ml @ 52.5 mls/hr PRN Q6HRS PRN IV for Phos < 2.6 and K < 4.5 Last administered on 03/19/21at 10:17; Start 03/19/21 at 09:00 Amphotericin B 300 mg/Dextrose 250 ml @ 125 mls/hr 1X ONCE IV Last administered on 03/19/21at 14:09; Start 03/19/21 at 14:00; Stop 03/19/21 at 15:59; Status DC Phenylephrine HCl 50 mg/Sodium Chloride 255 ml @ 21.374 mls/ hr CONT PRN IV PER PROTOCOL; Start 03/19/21 at 18:30 Potassium Phosphate 13.6 mmol/Sodium Chloride 254.5333 ml @ 127.... Q2H IV ; Start 03/19/21 at 22:30; Stop 03/19/21 at 22:01; Status DC Potassium Phosphate 13.6 mmol/Sodium Chloride 104.5333 ml @ 52.267 m... Q2H IV ; Start 03/19/21 at 22:30; Stop 03/19/21 at 22:02; Status DC Potassium Phosphate 13.6 mmol/Sodium Chloride 104.5333 ml @ 52.267 m... Q2H IV Last administered on 03/20/21at 02:19; Start 03/19/21 at 22:30; Stop 03/20/21 at 04:29; Status DC Insulin Glargine (Lantus Syringe) 5 unit QHS SQ ; Start 03/20/21 at 21:00 Active Scripts Active Reported Miralax (Polyethylene Glycol 3350) 17 Gm Powd.pack 1 Packet PO DAILY 2 Days dissolve in water Protonix Packet (Pantoprazole Sodium) 40 Mg Granpkt.dr 40 Mg PO DAILY Metoprolol Tartrate 25 Mg Tablet 1 Tab PO BID Methylprednisolone Sod Succ 40 Mg Vial 60 Mg IV BID Duoneb 0.5-3(2.5) Mg/3 Ml (Albuterol/Ipratropium) 3 Ml Ampul.neb 3 Ml NEB QID Humalog (Insulin Lispro) 100 Unit/1 Ml Vial 6 Unit SQ Q6HRS Humalog (Insulin Lispro) 100 Unit/1 Ml Cartridge 0-6 Unit SQ Q6HRS Lantus Solostar (Insulin Glargine,Hum.rec.anlog) 100 Unit/1 Ml Insuln.pen 14 Unit SQ BID Ferrous Sulfate 325 Mg Tablet 1 Tab PO BID Diltiazem Hcl Tablet (Diltiazem Hcl) 60 Mg Tablet 60 Mg PO QID Eliquis (Apixaban) 5 Mg Tablet 5 Mg PO DAILY [amphotericin] 650 Mg IV DAILY Amiodarone Hcl 400 Mg Tablet 1 Tab PO DAILY 30 Days Norepinephrine 8 mg/250 ml-D5w (Norepinephrine Bitartrate/D5w) 8 Mg/250 Ml Plast..bag 8 Mg IV PRN PRN Dexmedetomidin 400Mcg/100Ml-Ns (Dexmedetomidine in 0.9 % NaCl) 400 Mcg/100 Ml Infus..btl 400 Mcg IV PRN PRN Allergies Allergies: Coded Allergies: Antihistamines - Ethylenediamine (Verified Allergy, Intermediate, 03/16/21) aspirin (Verified Allergy, Intermediate, 03/16/21) salmeterol (Verified Allergy, Intermediate, 03/16/21) ROS Review of System unable to obtain Physical Exam General: No acute distress HEENT: Other (trach in place) Lungs: Other (mech vent) Heart: Normal S1, Normal S2 Abdomen: Soft, Other (oeg) Extremities: No clubbing, No cyanosis MUSCULOSKELETAL: No deformity, No swelling Vitals VITALS Vital Signs Date Time Temp Pulse Resp B/P (MAP) Pulse Ox O2 Delivery O2 Flow Rate FiO2 03/20/21 08:48 99 91/48 03/20/21 07:50 88 Ventilator 03/20/21 06:00 36 03/20/21 04:00 97.6 97.6 03/19/21 20:32 15.0 Labs Labs Laboratory Tests Test 03/18/21 11:40 03/18/21 17:35 03/18/21 18:44 03/18/21 21:30 Glucose (Fingerstick) 191 mg/dL (70-99) 223 mg/dL (70-99) Sodium Level 133 mmol/L (136-145) Potassium Level 3.8 mmol/L (3.5-5.1) Chloride Level 96 mmol/L (98-107) Carbon Dioxide Level 30 mmol/L (21-32) Anion Gap 7 (6-14) Blood Urea Nitrogen 56 mg/dL (7-20) Creatinine 1.6 mg/dL (0.6-1.0) Estimated GFR (Cockcroft-Gault) 32.1 Glucose Level 247 mg/dL (70-99) Calcium Level 6.8 mg/dL (8.5-10.1) Phosphorus Level 4.7 mg/dL (2.6-4.7) Magnesium Level 2.7 mg/dL (1.8-2.4) Urine Collection Type Unknown Urine Color Melani Urine Clarity Turbid Urine pH 5.0 (<5.0-8.0) Urine Specific [place] 1.020 (1.000-1.030) Urine Protein 100 mg/dL (NEG-TRACE) Urine Glucose (UA) 100 mg/dL (NEG) Urine Ketones (Stick) Negative mg/dL (NEG) Urine Blood Large (NEG) Urine Nitrite Negative (NEG) Urine Bilirubin Negative (NEG) Urine Urobilinogen Dipstick 0.2 mg/dL (0.2 mg/dL) Urine Leukocyte Esterase Moderate (NEG) Urine RBC 20-40 /HPF (0-2) Urine WBC 11-20 /HPF (0-4) Urine Squamous Epithelial Cells Occ /LPF Urine Amorphous Sediment Present /HPF Urine Bacteria Few /HPF (0-FEW) Urine Hyaline Casts Few /HPF Urine Granular Casts Few /HPF Urine Mucus Mod /LPF Test 03/19/21 00:15 03/19/21 00:17 03/19/21 06:30 03/19/21 06:54 Sodium Level 133 mmol/L (136-145) 135 mmol/L (136-145) Potassium Level 3.7 mmol/L (3.5-5.1) 3.5 mmol/L (3.5-5.1) Chloride Level 97 mmol/L (98-107) 98 mmol/L (98-107) Carbon Dioxide Level 32 mmol/L (21-32) 33 mmol/L (21-32) Anion Gap 4 (6-14) 4 (6-14) Blood Urea Nitrogen 34 mg/dL (7-20) 22 mg/dL (7-20) Creatinine 1.2 mg/dL (0.6-1.0) 0.8 mg/dL (0.6-1.0) Estimated GFR (Cockcroft-Gault) 44.7 71.3 Glucose Level 308 mg/dL (70-99) 274 mg/dL (70-99) Calcium Level 7.5 mg/dL (8.5-10.1) 7.6 mg/dL (8.5-10.1) Phosphorus Level 3.3 mg/dL (2.6-4.7) 2.5 mg/dL (2.6-4.7) Magnesium Level 2.8 mg/dL (1.8-2.4) 2.9 mg/dL (1.8-2.4) Glucose (Fingerstick) 283 mg/dL (70-99) 280 mg/dL (70-99) White Blood Count 13.8 x10^3/uL (4.0-11.0) Red Blood Count 2.16 x10^6/uL (3.50-5.40) Hemoglobin 6.3 g/dL (12.0-15.5) Hematocrit 20.2 % (36.0-47.0) Mean Corpuscular Volume 94 fL (79-100) Mean Corpuscular Hemoglobin 29 pg (25-35) Mean Corpuscular Hemoglobin Concent 31 g/dL (31-37) Red Cell Distribution Width 24.8 % (11.5-14.5) Platelet Count 138 x10^3/uL (140-400) Neutrophils (%) (Auto) 80 % (31-73) Lymphocytes (%) (Auto) 16 % (24-48) Monocytes (%) (Auto) 4 % (0-9) Eosinophils (%) (Auto) 1 % (0-3) Basophils (%) (Auto) 0 % (0-3) Neutrophils # (Auto) 11.1 x10^3/uL (1.8-7.7) Lymphocytes # (Auto) 2.1 x10^3/uL (1.0-4.8) Monocytes # (Auto) 0.5 x10^3/uL (0.0-1.1) Eosinophils # (Auto) 0.1 x10^3/uL (0.0-0.7) Basophils # (Auto) 0.0 x10^3/uL (0.0-0.2) Test 03/19/21 07:27 03/19/21 11:37 03/19/21 12:50 03/19/21 15:00 O2 Saturation 76 % (92-99) Arterial Blood pH 7.08 (7.35-7.45) Arterial Blood pCO2 at Patient Temp 124 mmHg (35-46) Arterial Blood pO2 at Patient Temp 44 mmHg (65-108) Arterial Blood HCO3 36 mmol/L (21-28) Arterial Blood Base Excess 4 mmol/L (-3-3) FiO2 100% vent Glucose (Fingerstick) 273 mg/dL (70-99) Sodium Level 134 mmol/L (136-145) Potassium Level 4.2 mmol/L (3.5-5.1) Chloride Level 98 mmol/L (98-107) Carbon Dioxide Level 33 mmol/L (21-32) Anion Gap 3 (6-14) Blood Urea Nitrogen 15 mg/dL (7-20) Creatinine 0.6 mg/dL (0.6-1.0) Estimated GFR (Cockcroft-Gault) 99.4 Glucose Level 278 mg/dL (70-99) Calcium Level 7.4 mg/dL (8.5-10.1) Phosphorus Level 3.9 mg/dL (2.6-4.7) Magnesium Level 3.0 mg/dL (1.8-2.4) Total Bilirubin 0.3 mg/dL (0.2-1.0) Direct Bilirubin 0.1 mg/dL (0.0-0.2) Aspartate Amino Transf (AST/SGOT) 20 U/L (15-37) Alanine Aminotransferase (ALT/SGPT) 28 U/L (14-59) Alkaline Phosphatase 92 U/L (46-116) Ammonia 70 mcmol/L (11-34) Total Protein 5.1 g/dL (6.4-8.2) Albumin 2.5 g/dL (3.4-5.0) Hemoglobin 7.7 g/dL (12.0-15.5) Hematocrit 24.0 % (36.0-47.0) Mean Corpuscular Hemoglobin Concent 32 g/dL (31-37) Test 03/19/21 17:19 03/19/21 20:15 03/20/21 00:20 03/20/21 05:20 Glucose (Fingerstick) 277 mg/dL (70-99) 258 mg/dL (70-99) White Blood Count 18.3 x10^3/uL (4.0-11.0) 13.4 x10^3/uL (4.0-11.0) Red Blood Count 2.57 x10^6/uL (3.50-5.40) 2.51 x10^6/uL (3.50-5.40) Hemoglobin 7.4 g/dL (12.0-15.5) 7.2 g/dL (12.0-15.5) Hematocrit 23.8 % (36.0-47.0) 23.1 % (36.0-47.0) Mean Corpuscular Volume 93 fL (79-100) 92 fL (79-100) Mean Corpuscular Hemoglobin 29 pg (25-35) 29 pg (25-35) Mean Corpuscular Hemoglobin Concent 31 g/dL (31-37) 31 g/dL (31-37) Red Cell Distribution Width 23.9 % (11.5-14.5) 23.8 % (11.5-14.5) Platelet Count 94 x10^3/uL (140-400) 92 x10^3/uL (140-400) Sodium Level 135 mmol/L (136-145) 133 mmol/L (136-145) Potassium Level 3.7 mmol/L (3.5-5.1) 4.3 mmol/L (3.5-5.1) Chloride Level 98 mmol/L (98-107) 99 mmol/L (98-107) Carbon Dioxide Level 35 mmol/L (21-32) 34 mmol/L (21-32) Anion Gap 2 (6-14) 0 (6-14) Blood Urea Nitrogen 11 mg/dL (7-20) 7 mg/dL (7-20) Creatinine 0.6 mg/dL (0.6-1.0) 0.4 mg/dL (0.6-1.0) Estimated GFR (Cockcroft-Gault) 99.4 158.7 Glucose Level 247 mg/dL (70-99) 265 mg/dL (70-99) Calcium Level 7.9 mg/dL (8.5-10.1) 7.9 mg/dL (8.5-10.1) Phosphorus Level 2.4 mg/dL (2.6-4.7) 3.0 mg/dL (2.6-4.7) Magnesium Level 3.1 mg/dL (1.8-2.4) 3.3 mg/dL (1.8-2.4) Neutrophils (%) (Auto) 82 % (31-73) Lymphocytes (%) (Auto) 13 % (24-48) Monocytes (%) (Auto) 3 % (0-9) Eosinophils (%) (Auto) 1 % (0-3) Basophils (%) (Auto) 0 % (0-3) Neutrophils # (Auto) 11.1 x10^3/uL (1.8-7.7) Lymphocytes # (Auto) 1.7 x10^3/uL (1.0-4.8) Monocytes # (Auto) 0.4 x10^3/uL (0.0-1.1) Eosinophils # (Auto) 0.2 x10^3/uL (0.0-0.7) Basophils # (Auto) 0.0 x10^3/uL (0.0-0.2) BUN/Creatinine Ratio 18 (6-20) Total Bilirubin 0.4 mg/dL (0.2-1.0) Aspartate Amino Transf (AST/SGOT) 21 U/L (15-37) Alanine Aminotransferase (ALT/SGPT) 24 U/L (14-59) Alkaline Phosphatase 95 U/L (46-116) Total Protein 5.4 g/dL (6.4-8.2) Albumin 2.2 g/dL (3.4-5.0) Albumin/Globulin Ratio 0.7 (1.0-1.7) Test 03/20/21 05:52 03/20/21 08:35 Glucose (Fingerstick) 221 mg/dL (70-99) O2 Saturation 75 % (92-99) Arterial Blood pH 7.15 (7.35-7.45) Arterial Blood pCO2 at Patient Temp 99 mmHg (35-46) Arterial Blood pO2 at Patient Temp < 42 mmHg (65-108) Arterial Blood HCO3 34 mmol/L (21-28) Arterial Blood Base Excess 4 mmol/L (-3-3) FiO2 100 Laboratory Tests Test 03/19/21 11:37 03/19/21 12:50 03/19/21 15:00 03/19/21 17:19 Glucose (Fingerstick) 273 mg/dL (70-99) 277 mg/dL (70-99) Sodium Level 134 mmol/L (136-145) Potassium Level 4.2 mmol/L (3.5-5.1) Chloride Level 98 mmol/L (98-107) Carbon Dioxide Level 33 mmol/L (21-32) Anion Gap 3 (6-14) Blood Urea Nitrogen 15 mg/dL (7-20) Creatinine 0.6 mg/dL (0.6-1.0) Estimated GFR (Cockcroft-Gault) 99.4 Glucose Level 278 mg/dL (70-99) Calcium Level 7.4 mg/dL (8.5-10.1) Phosphorus Level 3.9 mg/dL (2.6-4.7) Magnesium Level 3.0 mg/dL (1.8-2.4) Total Bilirubin 0.3 mg/dL (0.2-1.0) Direct Bilirubin 0.1 mg/dL (0.0-0.2) Aspartate Amino Transf (AST/SGOT) 20 U/L (15-37) Alanine Aminotransferase (ALT/SGPT) 28 U/L (14-59) Alkaline Phosphatase 92 U/L (46-116) Ammonia 70 mcmol/L (11-34) Total Protein 5.1 g/dL (6.4-8.2) Albumin 2.5 g/dL (3.4-5.0) Hemoglobin 7.7 g/dL (12.0-15.5) Hematocrit 24.0 % (36.0-47.0) Mean Corpuscular Hemoglobin Concent 32 g/dL (31-37) Test 03/19/21 20:15 03/20/21 00:20 03/20/21 05:20 03/20/21 05:52 White Blood Count 18.3 x10^3/uL (4.0-11.0) 13.4 x10^3/uL (4.0-11.0) Red Blood Count 2.57 x10^6/uL (3.50-5.40) 2.51 x10^6/uL (3.50-5.40) Hemoglobin 7.4 g/dL (12.0-15.5) 7.2 g/dL (12.0-15.5) Hematocrit 23.8 % (36.0-47.0) 23.1 % (36.0-47.0) Mean Corpuscular Volume 93 fL (79-100) 92 fL (79-100) Mean Corpuscular Hemoglobin 29 pg (25-35) 29 pg (25-35) Mean Corpuscular Hemoglobin Concent 31 g/dL (31-37) 31 g/dL (31-37) Red Cell Distribution Width 23.9 % (11.5-14.5) 23.8 % (11.5-14.5) Platelet Count 94 x10^3/uL (140-400) 92 x10^3/uL (140-400) Sodium Level 135 mmol/L (136-145) 133 mmol/L (136-145) Potassium Level 3.7 mmol/L (3.5-5.1) 4.3 mmol/L (3.5-5.1) Chloride Level 98 mmol/L (98-107) 99 mmol/L (98-107) Carbon Dioxide Level 35 mmol/L (21-32) 34 mmol/L (21-32) Anion Gap 2 (6-14) 0 (6-14) Blood Urea Nitrogen 11 mg/dL (7-20) 7 mg/dL (7-20) Creatinine 0.6 mg/dL (0.6-1.0) 0.4 mg/dL (0.6-1.0) Estimated GFR (Cockcroft-Gault) 99.4 158.7 Glucose Level 247 mg/dL (70-99) 265 mg/dL (70-99) Calcium Level 7.9 mg/dL (8.5-10.1) 7.9 mg/dL (8.5-10.1) Phosphorus Level 2.4 mg/dL (2.6-4.7) 3.0 mg/dL (2.6-4.7) Magnesium Level 3.1 mg/dL (1.8-2.4) 3.3 mg/dL (1.8-2.4) Glucose (Fingerstick) 258 mg/dL (70-99) 221 mg/dL (70-99) Neutrophils (%) (Auto) 82 % (31-73) Lymphocytes (%) (Auto) 13 % (24-48) Monocytes (%) (Auto) 3 % (0-9) Eosinophils (%) (Auto) 1 % (0-3) Basophils (%) (Auto) 0 % (0-3) Neutrophils # (Auto) 11.1 x10^3/uL (1.8-7.7) Lymphocytes # (Auto) 1.7 x10^3/uL (1.0-4.8) Monocytes # (Auto) 0.4 x10^3/uL (0.0-1.1) Eosinophils # (Auto) 0.2 x10^3/uL (0.0-0.7) Basophils # (Auto) 0.0 x10^3/uL (0.0-0.2) BUN/Creatinine Ratio 18 (6-20) Total Bilirubin 0.4 mg/dL (0.2-1.0) Aspartate Amino Transf (AST/SGOT) 21 U/L (15-37) Alanine Aminotransferase (ALT/SGPT) 24 U/L (14-59) Alkaline Phosphatase 95 U/L (46-116) Total Protein 5.4 g/dL (6.4-8.2) Albumin 2.2 g/dL (3.4-5.0) Albumin/Globulin Ratio 0.7 (1.0-1.7) Test 03/20/21 08:35 O2 Saturation 75 % (92-99) Arterial Blood pH 7.15 (7.35-7.45) Arterial Blood pCO2 at Patient Temp 99 mmHg (35-46) Arterial Blood pO2 at Patient Temp < 42 mmHg (65-108) Arterial Blood HCO3 34 mmol/L (21-28) Arterial Blood Base Excess 4 mmol/L (-3-3) FiO2 100 Assessment/Plan Assessment/Plan multi system organ failure trach with leak poor prognosis will review with MARIO Russ MD 03/20/21 2210: CONSULT Assessment/Plan Assessment/Plan Pt seen and examined. Agree with Ms. Stahl's note Pt intubated and sedated on extensive pulm settings trach intact and nursing notes currently functioning. D/w pt's , interested in pursuing trach changed, but informed of pt's poor prognosis. Will tentatively plan trach change in AM Thanks for consult! BENNETT STAHL APRN Mar 20, 2021 09:17 MARIO CRANE MD Mar 20, 2021 22:10
[2021-03-20] MEDS: VASOPRESSIN - VASOSTRICT 20 UNIT in IV DEXTROSE 5% 100ML 100 ML IV PRN ×2 (09:18→19:25)
[2021-03-20] MEDS: MIDAZOLAM 100mg/100ml NS BAG 100 ML IV PRN ×2 (09:27→19:27)
--- NOTE | 2021-03-20 10:03 | PDOC ---
PROGRESS NOTES Date of Service DATE: 03/20/21 TIME: 09:57 Assessment Problems Medical Problems: (1) Anemia Status: Acute (2) Chronic respiratory failure Status: Acute (3) CKD (chronic kidney disease) Status: Acute (4) History of COVID-19 Status: Acute (5) PNA (pneumonia) Status: Acute Metabolic encephalopathy with multiple medical issues, concerns about c rytococcal meningitis, but is refusing lumbar puncture. Note that she is on multiple antibiotics, Levophed, and is sedated with fentanyl, midazolam, and dexmedetomidine. 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 pylori gastritis, thrombocytopenia, MRSA in the sputum at one time and Corine in the sputum and urine culture, diarrhea with negative C. difficile, atrial fibrillation with rapid ventricular response, severe sepsis requiring pressors, hypothermia, otomastoiditis and ear fliud collection on CT head History of gastroesophageal reflux disease, asthma, sleep apnea, left knee arthroplasty, osteoarthritis, hypothyroidism, chronic pain, hyperlipidemia Plan I did discuss with the on 03/17 after I wrote my note, he is adamantly opposed to any lumbar puncture and understands that the patient is gravely ill Neurological exam is invalid with the multiple sedatives, electroencephalogram would be pointless, I do not see a need to repeat brain imaging studies. Subjective None Objective Vital Signs Date Time Temp Pulse Resp B/P (MAP) Pulse Ox O2 Delivery O2 Flow Rate FiO2 03/20/21 08:48 99 91/48 03/20/21 07:50 88 Ventilator 03/20/21 06:00 36 03/20/21 04:00 97.6 97.6 03/19/21 20:32 15.0 Intake and Output 03/20/21 07:00 Intake Total 5497.7 ml Output Total 4541 ml Balance 956.7 ml IV Total 3697.7 ml Tube Feeding 1090 ml Blood Product IV Normal Saline Flush 680 ml Other 30 ml Output Urine Total 30 ml Gastric Drainage Total 4511 ml PHYSICAL EXAM Sedated on ventilator, no response PERRL. EOMI. CN: no focal findings. Muscle tone: normal. Muscle strength: Minimal withdrawal to pain DTR: 0-1+ Plantar reflex: Silent Gait: not examined in bed. Sensory exam: Not cooperative. Cerebellar: Not cooperative Review of Relevant I have reviewed the following items candice (where applicable) has been applied. Labs Laboratory Tests Test 03/18/21 11:40 03/18/21 17:35 03/18/21 18:44 03/18/21 21:30 Glucose (Fingerstick) 191 mg/dL (70-99) 223 mg/dL (70-99) Sodium Level 133 mmol/L (136-145) Potassium Level 3.8 mmol/L (3.5-5.1) Chloride Level 96 mmol/L (98-107) Carbon Dioxide Level 30 mmol/L (21-32) Anion Gap 7 (6-14) Blood Urea Nitrogen 56 mg/dL (7-20) Creatinine 1.6 mg/dL (0.6-1.0) Estimated GFR (Cockcroft-Gault) 32.1 Glucose Level 247 mg/dL (70-99) Calcium Level 6.8 mg/dL (8.5-10.1) Phosphorus Level 4.7 mg/dL (2.6-4.7) Magnesium Level 2.7 mg/dL (1.8-2.4) Urine Collection Type Unknown Urine Color [place] Urine Clarity Turbid Urine pH 5.0 (<5.0-8.0) Urine Specific [place] 1.020 (1.000-1.030) Urine Protein 100 mg/dL (NEG-TRACE) Urine Glucose (UA) 100 mg/dL (NEG) Urine Ketones (Stick) Negative mg/dL (NEG) Urine Blood Large (NEG) Urine Nitrite Negative (NEG) Urine Bilirubin Negative (NEG) Urine Urobilinogen Dipstick 0.2 mg/dL (0.2 mg/dL) Urine Leukocyte Esterase Moderate (NEG) Urine RBC 20-40 /HPF (0-2) Urine WBC 11-20 /HPF (0-4) Urine Squamous Epithelial Cells Occ /LPF Urine Amorphous Sediment Present /HPF Urine Bacteria Few /HPF (0-FEW) Urine Hyaline Casts Few /HPF Urine Granular Casts Few /HPF Urine Mucus Mod /LPF Test 03/19/21 00:15 03/19/21 00:17 03/19/21 06:30 03/19/21 06:54 Sodium Level 133 mmol/L (136-145) 135 mmol/L (136-145) Potassium Level 3.7 mmol/L (3.5-5.1) 3.5 mmol/L (3.5-5.1) Chloride Level 97 mmol/L (98-107) 98 mmol/L (98-107) Carbon Dioxide Level 32 mmol/L (21-32) 33 mmol/L (21-32) Anion Gap 4 (6-14) 4 (6-14) Blood Urea Nitrogen 34 mg/dL (7-20) 22 mg/dL (7-20) Creatinine 1.2 mg/dL (0.6-1.0) 0.8 mg/dL (0.6-1.0) Estimated GFR (Cockcroft-Gault) 44.7 71.3 Glucose Level 308 mg/dL (70-99) 274 mg/dL (70-99) Calcium Level 7.5 mg/dL (8.5-10.1) 7.6 mg/dL (8.5-10.1) Phosphorus Level 3.3 mg/dL (2.6-4.7) 2.5 mg/dL (2.6-4.7) Magnesium Level 2.8 mg/dL (1.8-2.4) 2.9 mg/dL (1.8-2.4) Glucose (Fingerstick) 283 mg/dL (70-99) 280 mg/dL (70-99) White Blood Count 13.8 x10^3/uL (4.0-11.0) Red Blood Count 2.16 x10^6/uL (3.50-5.40) Hemoglobin 6.3 g/dL (12.0-15.5) Hematocrit 20.2 % (36.0-47.0) Mean Corpuscular Volume 94 fL (79-100) Mean Corpuscular Hemoglobin 29 pg (25-35) Mean Corpuscular Hemoglobin Concent 31 g/dL (31-37) Red Cell Distribution Width 24.8 % (11.5-14.5) Platelet Count 138 x10^3/uL (140-400) Neutrophils (%) (Auto) 80 % (31-73) Lymphocytes (%) (Auto) 16 % (24-48) Monocytes (%) (Auto) 4 % (0-9) Eosinophils (%) (Auto) 1 % (0-3) Basophils (%) (Auto) 0 % (0-3) Neutrophils # (Auto) 11.1 x10^3/uL (1.8-7.7) Lymphocytes # (Auto) 2.1 x10^3/uL (1.0-4.8) Monocytes # (Auto) 0.5 x10^3/uL (0.0-1.1) Eosinophils # (Auto) 0.1 x10^3/uL (0.0-0.7) Basophils # (Auto) 0.0 x10^3/uL (0.0-0.2) Test 03/19/21 07:27 03/19/21 11:37 03/19/21 12:50 03/19/21 15:00 O2 Saturation 76 % (92-99) Arterial Blood pH 7.08 (7.35-7.45) Arterial Blood pCO2 at Patient Temp 124 mmHg (35-46) Arterial Blood pO2 at Patient Temp 44 mmHg (65-108) Arterial Blood HCO3 36 mmol/L (21-28) Arterial Blood Base Excess 4 mmol/L (-3-3) FiO2 100% vent Glucose (Fingerstick) 273 mg/dL (70-99) Sodium Level 134 mmol/L (136-145) Potassium Level 4.2 mmol/L (3.5-5.1) Chloride Level 98 mmol/L (98-107) Carbon Dioxide Level 33 mmol/L (21-32) Anion Gap 3 (6-14) Blood Urea Nitrogen 15 mg/dL (7-20) Creatinine 0.6 mg/dL (0.6-1.0) Estimated GFR (Cockcroft-Gault) 99.4 Glucose Level 278 mg/dL (70-99) Calcium Level 7.4 mg/dL (8.5-10.1) Phosphorus Level 3.9 mg/dL (2.6-4.7) Magnesium Level 3.0 mg/dL (1.8-2.4) Total Bilirubin 0.3 mg/dL (0.2-1.0) Direct Bilirubin 0.1 mg/dL (0.0-0.2) Aspartate Amino Transf (AST/SGOT) 20 U/L (15-37) Alanine Aminotransferase (ALT/SGPT) 28 U/L (14-59) Alkaline Phosphatase 92 U/L (46-116) Ammonia 70 mcmol/L (11-34) Total Protein 5.1 g/dL (6.4-8.2) Albumin 2.5 g/dL (3.4-5.0) Hemoglobin 7.7 g/dL (12.0-15.5) Hematocrit 24.0 % (36.0-47.0) Mean Corpuscular Hemoglobin Concent 32 g/dL (31-37) Test 03/19/21 17:19 03/19/21 20:15 03/20/21 00:20 03/20/21 05:20 Glucose (Fingerstick) 277 mg/dL (70-99) 258 mg/dL (70-99) White Blood Count 18.3 x10^3/uL (4.0-11.0) 13.4 x10^3/uL (4.0-11.0) Red Blood Count 2.57 x10^6/uL (3.50-5.40) 2.51 x10^6/uL (3.50-5.40) Hemoglobin 7.4 g/dL (12.0-15.5) 7.2 g/dL (12.0-15.5) Hematocrit 23.8 % (36.0-47.0) 23.1 % (36.0-47.0) Mean Corpuscular Volume 93 fL (79-100) 92 fL (79-100) Mean Corpuscular Hemoglobin 29 pg (25-35) 29 pg (25-35) Mean Corpuscular Hemoglobin Concent 31 g/dL (31-37) 31 g/dL (31-37) Red Cell Distribution Width 23.9 % (11.5-14.5) 23.8 % (11.5-14.5) Platelet Count 94 x10^3/uL (140-400) 92 x10^3/uL (140-400) Sodium Level 135 mmol/L (136-145) 133 mmol/L (136-145) Potassium Level 3.7 mmol/L (3.5-5.1) 4.3 mmol/L (3.5-5.1) Chloride Level 98 mmol/L (98-107) 99 mmol/L (98-107) Carbon Dioxide Level 35 mmol/L (21-32) 34 mmol/L (21-32) Anion Gap 2 (6-14) 0 (6-14) Blood Urea Nitrogen 11 mg/dL (7-20) 7 mg/dL (7-20) Creatinine 0.6 mg/dL (0.6-1.0) 0.4 mg/dL (0.6-1.0) Estimated GFR (Cockcroft-Gault) 99.4 158.7 Glucose Level 247 mg/dL (70-99) 265 mg/dL (70-99) Calcium Level 7.9 mg/dL (8.5-10.1) 7.9 mg/dL (8.5-10.1) Phosphorus Level 2.4 mg/dL (2.6-4.7) 3.0 mg/dL (2.6-4.7) Magnesium Level 3.1 mg/dL (1.8-2.4) 3.3 mg/dL (1.8-2.4) Neutrophils (%) (Auto) 82 % (31-73) Lymphocytes (%) (Auto) 13 % (24-48) Monocytes (%) (Auto) 3 % (0-9) Eosinophils (%) (Auto) 1 % (0-3) Basophils (%) (Auto) 0 % (0-3) Neutrophils # (Auto) 11.1 x10^3/uL (1.8-7.7) Lymphocytes # (Auto) 1.7 x10^3/uL (1.0-4.8) Monocytes # (Auto) 0.4 x10^3/uL (0.0-1.1) Eosinophils # (Auto) 0.2 x10^3/uL (0.0-0.7) Basophils # (Auto) 0.0 x10^3/uL (0.0-0.2) BUN/Creatinine Ratio 18 (6-20) Total Bilirubin 0.4 mg/dL (0.2-1.0) Aspartate Amino Transf (AST/SGOT) 21 U/L (15-37) Alanine Aminotransferase (ALT/SGPT) 24 U/L (14-59) Alkaline Phosphatase 95 U/L (46-116) Total Protein 5.4 g/dL (6.4-8.2) Albumin 2.2 g/dL (3.4-5.0) Albumin/Globulin Ratio 0.7 (1.0-1.7) Test 03/20/21 05:52 03/20/21 08:35 Glucose (Fingerstick) 221 mg/dL (70-99) O2 Saturation 75 % (92-99) Arterial Blood pH 7.15 (7.35-7.45) Arterial Blood pCO2 at Patient Temp 99 mmHg (35-46) Arterial Blood pO2 at Patient Temp < 42 mmHg (65-108) Arterial Blood HCO3 34 mmol/L (21-28) Arterial Blood Base Excess 4 mmol/L (-3-3) FiO2 100 Laboratory Tests Test 03/19/21 11:37 03/19/21 12:50 03/19/21 15:00 03/19/21 17:19 Glucose (Fingerstick) 273 mg/dL (70-99) 277 mg/dL (70-99) Sodium Level 134 mmol/L (136-145) Potassium Level 4.2 mmol/L (3.5-5.1) Chloride Level 98 mmol/L (98-107) Carbon Dioxide Level 33 mmol/L (21-32) Anion Gap 3 (6-14) Blood Urea Nitrogen 15 mg/dL (7-20) Creatinine 0.6 mg/dL (0.6-1.0) Estimated GFR (Cockcroft-Gault) 99.4 Glucose Level 278 mg/dL (70-99) Calcium Level 7.4 mg/dL (8.5-10.1) Phosphorus Level 3.9 mg/dL (2.6-4.7) Magnesium Level 3.0 mg/dL (1.8-2.4) Total Bilirubin 0.3 mg/dL (0.2-1.0) Direct Bilirubin 0.1 mg/dL (0.0-0.2) Aspartate Amino Transf (AST/SGOT) 20 U/L (15-37) Alanine Aminotransferase (ALT/SGPT) 28 U/L (14-59) Alkaline Phosphatase 92 U/L (46-116) Ammonia 70 mcmol/L (11-34) Total Protein 5.1 g/dL (6.4-8.2) Albumin 2.5 g/dL (3.4-5.0) Hemoglobin 7.7 g/dL (12.0-15.5) Hematocrit 24.0 % (36.0-47.0) Mean Corpuscular Hemoglobin Concent 32 g/dL (31-37) Test 03/19/21 20:15 03/20/21 00:20 03/20/21 05:20 03/20/21 05:52 White Blood Count 18.3 x10^3/uL (4.0-11.0) 13.4 x10^3/uL (4.0-11.0) Red Blood Count 2.57 x10^6/uL (3.50-5.40) 2.51 x10^6/uL (3.50-5.40) Hemoglobin 7.4 g/dL (12.0-15.5) 7.2 g/dL (12.0-15.5) Hematocrit 23.8 % (36.0-47.0) 23.1 % (36.0-47.0) Mean Corpuscular Volume 93 fL (79-100) 92 fL (79-100) Mean Corpuscular Hemoglobin 29 pg (25-35) 29 pg (25-35) Mean Corpuscular Hemoglobin Concent 31 g/dL (31-37) 31 g/dL (31-37) Red Cell Distribution Width 23.9 % (11.5-14.5) 23.8 % (11.5-14.5) Platelet Count 94 x10^3/uL (140-400) 92 x10^3/uL (140-400) Sodium Level 135 mmol/L (136-145) 133 mmol/L (136-145) Potassium Level 3.7 mmol/L (3.5-5.1) 4.3 mmol/L (3.5-5.1) Chloride Level 98 mmol/L (98-107) 99 mmol/L (98-107) Carbon Dioxide Level 35 mmol/L (21-32) 34 mmol/L (21-32) Anion Gap 2 (6-14) 0 (6-14) Blood Urea Nitrogen 11 mg/dL (7-20) 7 mg/dL (7-20) Creatinine 0.6 mg/dL (0.6-1.0) 0.4 mg/dL (0.6-1.0) Estimated GFR (Cockcroft-Gault) 99.4 158.7 Glucose Level 247 mg/dL (70-99) 265 mg/dL (70-99) Calcium Level 7.9 mg/dL (8.5-10.1) 7.9 mg/dL (8.5-10.1) Phosphorus Level 2.4 mg/dL (2.6-4.7) 3.0 mg/dL (2.6-4.7) Magnesium Level 3.1 mg/dL (1.8-2.4) 3.3 mg/dL (1.8-2.4) Glucose (Fingerstick) 258 mg/dL (70-99) 221 mg/dL (70-99) Neutrophils (%) (Auto) 82 % (31-73) Lymphocytes (%) (Auto) 13 % (24-48) Monocytes (%) (Auto) 3 % (0-9) Eosinophils (%) (Auto) 1 % (0-3) Basophils (%) (Auto) 0 % (0-3) Neutrophils # (Auto) 11.1 x10^3/uL (1.8-7.7) Lymphocytes # (Auto) 1.7 x10^3/uL (1.0-4.8) Monocytes # (Auto) 0.4 x10^3/uL (0.0-1.1) Eosinophils # (Auto) 0.2 x10^3/uL (0.0-0.7) Basophils # (Auto) 0.0 x10^3/uL (0.0-0.2) BUN/Creatinine Ratio 18 (6-20) Total Bilirubin 0.4 mg/dL (0.2-1.0) Aspartate Amino Transf (AST/SGOT) 21 U/L (15-37) Alanine Aminotransferase (ALT/SGPT) 24 U/L (14-59) Alkaline Phosphatase 95 U/L (46-116) Total Protein 5.4 g/dL (6.4-8.2) Albumin 2.2 g/dL (3.4-5.0) Albumin/Globulin Ratio 0.7 (1.0-1.7) Test 03/20/21 08:35 O2 Saturation 75 % (92-99) Arterial Blood pH 7.15 (7.35-7.45) Arterial Blood pCO2 at Patient Temp 99 mmHg (35-46) Arterial Blood pO2 at Patient Temp < 42 mmHg (65-108) Arterial Blood HCO3 34 mmol/L (21-28) Arterial Blood Base Excess 4 mmol/L (-3-3) FiO2 100 Microbiology 03/18/21 Urine Culture - Final, Complete 03/16/21 Blood Culture - Preliminary, Resulted NO GROWTH AFTER 3 DAYS Medications Current Medications Midazolam HCl (Versed) 2 mg STK-MED ONCE .ROUTE ; Start 03/16/21 at 13:52; Stop 03/16/21 at 13:53; Status DC Dexmedetomidine HCl 400 mcg/ Sodium Chloride 100 ml @ 0 mls/hr CONT PRN IV PER PROTOCOL Last administered on 03/20/21at 09:31; Start 03/16/21 at 14:00 Sodium Chloride 500 ml @ 500 mls/hr 1X PRN PRN IV SEE COMMENTS; Start 03/16/21 at 14:00 Atropine Sulfate (ATROPINE 0.5mg SYRINGE) 0.5 mg PRN Q5MIN PRN IV SEE COMMENTS; Start 03/16/21 at 14:00 Norepinephrine Bitartrate 8 mg/ Dextrose 258 ml @ 27.864 mls/ hr 1X ONCE IV Last administered on 03/16/21at 14:13; Start 03/16/21 at 14:00; Stop 03/16/21 at 23:15; Status DC Midazolam HCl (Versed) 2 mg 1X ONCE IVP Last administered on 03/16/21at 13:58; Start 03/16/21 at 14:00; Stop 03/16/21 at 14:01; Status DC Calcium Gluconate (Calcium Gluconate) 1,000 mg 1X ONCE IVP Last administered on 03/16/21at 15:01; Start 03/16/21 at 14:45; Stop 03/16/21 at 14:46; Status DC Midazolam HCl (Versed) 5 mg 1X ONCE NS Last administered on 03/16/21at 14:41; Start 03/16/21 at 14:45; Stop 03/16/21 at 14:46; Status DC Midazolam HCl 100 ml @ 1 mls/hr CONT PRN IV SEE PROTOCOL Last administered on 03/20/21at 09:27; Start 03/16/21 at 15:00 Propofol 100 ml @ As Directed STK-MED ONCE IV ; Start 03/16/21 at 14:55; Stop 03/16/21 at 14:55; Status DC Acetaminophen (Tylenol) 650 mg PRN Q4HRS PRN PO FEVER > 100.3'F; Start 03/16/21 at 16:30; Stop 03/17/21 at 16:29; Status DC Nitroglycerin (Nitrostat) 0.4 mg PRN Q5MIN PRN SL CHEST PAIN; Start 03/16/21 at 16:30; Stop 03/17/21 at 16:29; Status DC Fentanyl Citrate 30 ml @ 0 mls/hr CONT PRN IV SEE PROTOCOL Last administered on 03/17/21at 11:39; Start 03/16/21 at 18:00; Stop 03/18/21 at 02:00; Status DC Vecuronium [place] (Norcuron Bolus) 10 mg 1X ONCE IV Last administered on 03/16/21at 18:06; Start 03/16/21 at 18:00; Stop 03/16/21 at 18:01; Status DC Meropenem 500 mg/ Sodium Chloride 50 ml @ 100 mls/hr Q8H IV Last administered on 03/17/21at 04:12; Start 03/16/21 at 20:00; Stop 03/17/21 at 04:30; Status DC Linezolid/Dextrose 300 ml @ 300 mls/hr Q12HR IV Last administered on 03/20/21at 08:47; Start 03/16/21 at 21:00 Micafungin Sodium 100 mg/Dextrose 100 ml @ 100 mls/hr Q24H IV Last administered on 03/18/21at 21:41; Start 03/16/21 at 22:00; Stop 03/19/21 at 12:18; Status DC Pharmacy Consult (C.diff Med Screen By Rx) 1 each 1X ONCE MC ; Start 03/16/21 at 23:45; Stop 03/16/21 at 23:46; Status DC Albuterol/ Ipratropium (Duoneb) 3 ml QID NEB Last administered on 03/20/21at 08:25; Start 03/17/21 at 09:00 Metoprolol Tartrate (Lopressor) 25 mg BID PO ; Start 03/17/21 at 09:00 Polyethylene Glycol (miraLAX PACKET) 17 gm DAILY PO Last administered on 03/20/21at 08:48; Start 03/17/21 at 09:00 Amiodarone HCl (Cordarone) 200 mg DAILY PO Last administered on 03/20/21at 08:48; Start 03/17/21 at 09:00 Pantoprazole Sodium (Protonix) 40 mg DAILYAC PO ; Start 03/17/21 at 07:30; Status Cancel Insulin Human Lispro (HumaLOG) 0-9 UNITS Q6HRS SQ Last administered on 03/20/21at 05:55; Start 03/17/21 at 06:00 Dextrose (Dextrose 50%-Water Syringe) 12.5 gm PRN Q15MIN PRN IV SEE COMMENTS; Start 03/17/21 at 02:45 Meropenem 500 mg/ Sodium Chloride 50 ml @ 100 mls/hr Q8HRS IV Last a dministered on 03/18/21at 13:59; Start 03/17/21 at 14:00; Stop 03/18/21 at 14:47; Status DC Heparin Sodium (Porcine) (Heparin Sodium) 5,000 unit Q8HRS SQ Last administered on 03/20/21at 05:56; Start 03/17/21 at 06:00 Lansoprazole (Prevacid) 30 mg DAILY07 PEG Last administered on 03/20/21at 08:48; Start 03/17/21 at 09:00 Norepinephrine Bitartrate 8 mg/ Dextrose 258 ml @ 26.703 mls/ hr CONT PRN IV PER PROTOCOL Last administered on 03/17/21at 15:22; Start 03/17/21 at 09:00; Stop 03/17/21 at 20:36; Status DC Sodium Bicarbonate (Sodium Bicarb Adult 8.4% Syr) 150 meq 1X ONCE IV Last administered on 03/17/21at 12:58; Start 03/17/21 at 12:30; Stop 03/17/21 at 12:32; Status DC Vecuronium [place] (Norcuron Bolus) 10 mg STK-MED ONCE IV ; Start 03/17/21 at 12:32; Stop 03/17/21 at 12:32; Status DC Vecuronium [place] (Norcuron Bolus) 6 mg PRN Q4HRS PRN IV VENTILATOR COMPLIANCE Last administered on 03/19/21at 16:45; Start 03/17/21 at 12:45 Lidocaine HCl (Buffered Lidocaine 1%) 3 ml STK-MED ONCE .ROUTE ; Start 03/17/21 at 13:01; Stop 03/17/21 at 13:02; Status DC Lidocaine HCl (Buffered Lidocaine 1%) 3 ml 1X ONCE INJ Last administered on 03/17/21at 13:22; Start 03/17/21 at 13:30; Stop 03/17/21 at 13:31; Status DC Fentanyl Citrate 55 ml @ 0 mls/hr CONT PRN IV SEE PROTOCOL Last administered on 03/19/21at 20:02; Start 03/17/21 at 17:00 Norepinephrine Bitartrate 32 mg/ Dextrose 250 ml @ 6.464 mls/ hr CONT PRN IV SEE I/O RECORD Last administered on 03/20/21at 06:26; Start 03/17/21 at 20:45 Valacyclovir HCl (Valtrex) 500 mg DAILY PO Last administered on 03/20/21at 08:48; Start 03/18/21 at 09:00; Stop 03/22/21 at 09:00 Potassium Chloride 20 meq/ Magnesium Sulfate 5 meq/Calcium Chloride 2.5 meq/ Bicarbonate Dialysis Soln w/ out KCl 5,013.0357 ml @ 2,000 mls/hr Q2H31M IV Last administered on 03/18/21at 18:30; Start 03/18/21 at 13:00; Stop 03/18/21 at 20:59; Status DC Potassium Chloride 20 meq/ Magnesium Sulfate 5 meq/Calcium Chloride 2.5 meq/ Bicarbonate Dialysis Soln w/ out KCl 5,013.0357 ml @ 2,000 mls/hr Q2H31M IV Last administered on 03/18/21at 18:30; Start 03/18/21 at 13:00; Stop 03/18/21 at 20:59; Status DC Sodium Bicarbonate 150 meq/Dextrose 1,150 ml @ 500 mls/hr Q2H18M IV Last administered on 03/20/21at 09:17; Start 03/18/21 at 13:00 Vasopressin 20 unit/Dextrose 101 ml @ 12 mls/hr CONT PRN IV SEE I/O RECORD Last administered on 03/20/21at 09:18; Start 03/18/21 at 14:15 Meropenem 1 gm/ Sodium Chloride 100 ml @ 200 mls/hr Q12HR IV Last administered on 03/20/21at 08:48; Start 03/18/21 at 21:00 Albumin Human 500 ml @ 125 mls/hr 1X ONCE IV Last administered on 03/18/21at 15:15; Start 03/18/21 at 15:15; Stop 03/18/21 at 19:14; Status DC Albumin Human 500 ml @ 125 mls/hr 1X ONCE IV Last administered on 03/18/21at 20:41; Start 03/18/21 at 19:30; Stop 03/18/21 at 23:29; Status DC Potassium Chloride 20 meq/ Magnesium Sulfate 5 meq/Calcium Chloride 5 meq/ Bicarbonate Dialysis Soln w/ out KCl 5,014.8214 ml @ 2,000 mls/hr Q2H31M IV Last administered on 03/20/21at 07:45; Start 03/18/21 at 21:00 Potassium Chloride 20 meq/ Magnesium Sulfate 5 meq/Calcium Chloride 5 meq/ Bicarbonate Dialysis Soln w/ out KCl 5,014.8214 ml @ 2,000 mls/hr Q2H31M IV Last administered on 03/20/21at 07:45; Start 03/18/21 at 21:00 Potassium Phosphate 40 mmol/ Sodium Chloride 113.3333 ml @ 52.5 mls/hr PRN Q6HRS PRN IV for Phos < 2.6 and K < 4.5 Last administered on 03/19/21at 10:17; Start 03/19/21 at 09:00 Amphotericin B 300 mg/Dextrose 250 ml @ 125 mls/hr 1X ONCE IV Last administered on 03/19/21at 14:09; Start 03/19/21 at 14:00; Stop 03/19/21 at 15:59; Status DC Phenylephrine HCl 50 mg/Sodium Chloride 255 ml @ 21.374 mls/ hr CONT PRN IV PER PROTOCOL; Start 03/19/21 at 18:30 Potassium Phosphate 13.6 mmol/Sodium Chloride 254.5333 ml @ 127.... Q2H IV ; Start 03/19/21 at 22:30; Stop 03/19/21 at 22:01; Status DC Potassium Phosphate 13.6 mmol/Sodium Chloride 104.5333 ml @ 52.267 m... Q2H IV ; Start 03/19/21 at 22:30; Stop 03/19/21 at 22:02; Status DC Potassium Phosphate 13.6 mmol/Sodium Chloride 104.5333 ml @ 52.267 m... Q2H IV Last administered on 03/20/21at 02:19; Start 03/19/21 at 22:30; Stop 03/20/21 at 04:29; Status DC Insulin Glargine (Lantus Syringe) 5 unit QHS SQ ; Start 03/20/21 at 21:00 Active Scripts Active Reported Miralax (Polyethylene Glycol 3350) 17 Gm Powd.pack 1 Packet PO DAILY 2 Days dissolve in water Protonix Packet (Pantoprazole Sodium) 40 Mg Granpkt.dr 40 Mg PO DAILY Metoprolol Tartrate 25 Mg Tablet 1 Tab PO BID Methylprednisolone Sod Succ 40 Mg Vial 60 Mg IV BID Duoneb 0.5-3(2.5) Mg/3 Ml (Albuterol/Ipratropium) 3 Ml Ampul.neb 3 Ml NEB QID Humalog (Insulin Lispro) 100 Unit/1 Ml Vial 6 Unit SQ Q6HRS Humalog (Insulin Lispro) 100 Unit/1 Ml Cartridge 0-6 Unit SQ Q6HRS Lantus Solostar (Insulin Glargine,Hum.rec.anlog) 100 Unit/1 Ml Insuln.pen 14 Unit SQ BID Ferrous Sulfate 325 Mg Tablet 1 Tab PO BID Diltiazem Hcl Tablet (Diltiazem Hcl) 60 Mg Tablet 60 Mg PO QID Eliquis (Apixaban) 5 Mg Tablet 5 Mg PO DAILY [amphotericin] 650 Mg IV DAILY Amiodarone Hcl 400 Mg Tablet 1 Tab PO DAILY 30 Days Norepinephrine 8 mg/250 ml-D5w (Norepinephrine Bitartrate/D5w) 8 Mg/250 Ml Plast..bag 8 Mg IV PRN PRN Dexmedetomidin 400Mcg/100Ml-Ns (Dexmedetomidine in 0.9 % NaCl) 400 Mcg/100 Ml Infus..btl 400 Mcg IV PRN PRN Vitals/I & O Vital Sign - Last 24 Hours 03/19/21 03/19/21 03/19/21 03/19/21 10:00 11:00 11:22 12:00 Temp 97.6 97.6 Pulse 100 98 Resp 34 34 B/P (MAP) 106/51 102/55 Pulse Ox 87 84 85 O2 Delivery Ventilator Ventilator Ventilator Mechanical Ventilator 03/19/21 03/19/21 03/19/21 03/19/21 12:00 12:20 12:23 12:38 Temp 97.6 97.4 97.3 97.6 97.4 97.3 Pulse 96 96 99 Resp 34 34 34 B/P (MAP) 101/53 101/53 95/54 Pulse Ox 84 85 O2 Delivery Ventilator Ventilator 03/19/21 03/19/21 03/19/21 03/19/21 13:00 13:17 13:38 14:00 Temp 97.3 97.3 97.3 97.3 Pulse 101 100 100 Resp 36 36 36 B/P (MAP) 98/56 98/56 100/56 Pulse Ox 89 88 O2 Delivery Ventilator Ventilator 03/19/21 03/19/21 03/19/21 03/19/21 14:00 15:00 15:37 15:45 Temp 97.3 97.3 Pulse 99 97 98 Resp 36 36 36 B/P (MAP) 103/56 96/56 Pulse Ox 99 90 90 89 O2 Delivery Ventilator Ventilator Ventilator Ventilator 03/19/21 03/19/21 03/19/21 03/19/21 16:00 16:00 16:15 16:30 Temp 97.4 97.4 Pulse 98 98 98 Resp 36 36 36 B/P (MAP) 95/55 103/56 Pulse Ox 90 89 89 O2 Delivery Ventilator Mechanical Ventilator Ventilator Ventilator 03/19/21 03/19/21 03/19/21 03/19/21 16:45 17:00 17:15 17:30 Pulse 98 100 100 100 Resp 36 36 36 36 B/P (MAP) 99/53 112/57 97/49 Pulse Ox 90 90 90 90 O2 Delivery Ventilator Ventilator Ventilator Ventilator 03/19/21 03/19/21 03/19/21 03/19/21 17:45 18:00 19:00 20:00 Temp 97.9 97.9 Pulse 100 101 101 Resp 36 36 36 B/P (MAP) 103/55 91/53 86/53 Pulse Ox 88 88 85 88 O2 Delivery Ventilator Ventilator Ventilator Ventilator 03/19/21 03/19/21 03/19/21 03/19/21 20:00 20:02 20:06 20:32 Resp 36 36 Pulse Ox 88 86 86 O2 Delivery Mechanical Ventilator Ventilator Ventilator O2 Flow Rate 15.0 15.0 03/19/21 03/19/21 03/19/21 03/19/21 21:00 21:00 22:00 23:00 Pulse 100 100 101 102 Resp 36 36 36 B/P (MAP) 103/55 90/48 115/58 107/54 Pulse Ox 89 88 91 O2 Delivery Ventilator Ventilator Ventilator 03/19/21 03/19/21 03/20/21 03/20/21 23:38 23:59 00:00 01:00 Temp 97.6 97.6 Pulse 101 101 Resp 36 36 B/P (MAP) 100/52 97/48 Pulse Ox 90 90 91 O2 Delivery Ventilator Mechanical Ventilator Ventilator Ventilator 03/20/21 03/20/21 03/20/21 03/20/21 02:00 03:00 03:59 04:00 Pulse 100 99 Resp 36 36 B/P (MAP) 101/45 86/50 Pulse Ox 94 92 92 O2 Delivery Ventilator Ventilator Ventilator Mechanical Ventilator 03/20/21 03/20/21 03/20/21 03/20/21 04:00 05:00 05:07 06:00 Temp 97.6 97.6 Pulse 100 99 99 Resp 36 36 36 B/P (MAP) 110/56 83/47 91/48 Pulse Ox 88 90 90 91 O2 Delivery Ventilator Ventilator Ventilator Ventilator 03/20/21 03/20/21 07:50 08:48 Pulse 99 B/P (MAP) 91/48 Pulse Ox 88 O2 Delivery Ventilator Intake and Output 03/19/21 03/19/21 03/20/21 15:00 23:00 07:00 Intake Total 1320 ml 1836.7 ml 2341.0 ml Output Total 0 ml 25 ml 4516 ml Balance 1320 ml 1811.7 ml -2175.0 ml Justicifation of Admission Dx: Justifications for Admission: Justification of Admission Dx: N/A HEIDY ALVAREZ MD Mar 20, 2021 10:02
--- NOTE | 2021-03-20 10:48 | PDOC ---
Infectious Disease Note Subjective: Subjective Patient on vent,unresponsive, on levo and vasopressin Inc in O2 needs despite Fio2 100% Peep 14 ,intermitent trach leak WBC around 13K no fevers HB 7.2,s/p one unit of PRBC.Plt 96 TF on hold On CRRT Tolerated ambisome one dose well No family at bedside D/W RN ROS: ROS unable to obtain Vital Signs: Vital Signs Vital Signs Date Time Temp Pulse Resp B/P (MAP) Pulse Ox O2 Delivery O2 Flow Rate FiO2 03/20/21 08:48 99 91/48 03/20/21 08:00 Mechanical Ventilator 03/20/21 07:50 88 03/20/21 06:00 36 03/20/21 04:00 97.6 97.6 03/19/21 20:32 15.0 Physical Exam: PHYSICAL EXAM GENERAL: Patient on ventilator, nonresponsive, ill-appearing, on ventilation. On Emma hugger HEENT: Normocephalic, atraumatic. Pupils equal, small anicteric conjunctivae. NECK: Tracheostomy/vent. HEART: Tachycardia LUNGS: Decreased breath sound at bases. ABDOMEN: Obese, soft. Bowel sounds present. G-tube intact. GENITOURINARY: Stephens placed 03/15/2021 EXTREMITIES: Trace edema in the lower extremity, no cyanosis. DERMATOLOGIC: No generalized rash. Blister, left plantar foot. . Bilateral superficial ulceration on both buttock cheeks, Could not examine,See wound care notes and pictures for full details, I could not see any vesicles. NEUROLOGIC: Nonresponsive. Right upper extremity midline clean. Medications: Inpatient Meds: Medications reviewed. Labs: Lab Laboratory Tests Test 03/19/21 11:37 03/19/21 12:50 03/19/21 15:00 03/19/21 17:19 Glucose (Fingerstick) 273 mg/dL (70-99) 277 mg/dL (70-99) Sodium Level 134 mmol/L (136-145) Potassium Level 4.2 mmol/L (3.5-5.1) Chloride Level 98 mmol/L (98-107) Carbon Dioxide Level 33 mmol/L (21-32) Anion Gap 3 (6-14) Blood Urea Nitrogen 15 mg/dL (7-20) Creatinine 0.6 mg/dL (0.6-1.0) Estimated GFR (Cockcroft-Gault) 99.4 Glucose Level 278 mg/dL (70-99) Calcium Level 7.4 mg/dL (8.5-10.1) Phosphorus Level 3.9 mg/dL (2.6-4.7) Magnesium Level 3.0 mg/dL (1.8-2.4) Total Bilirubin 0.3 mg/dL (0.2-1.0) Direct Bilirubin 0.1 mg/dL (0.0-0.2) Aspartate Amino Transf (AST/SGOT) 20 U/L (15-37) Alanine Aminotransferase (ALT/SGPT) 28 U/L (14-59) Alkaline Phosphatase 92 U/L (46-116) Ammonia 70 mcmol/L (11-34) Total Protein 5.1 g/dL (6.4-8.2) Albumin 2.5 g/dL (3.4-5.0) Hemoglobin 7.7 g/dL (12.0-15.5) Hematocrit 24.0 % (36.0-47.0) Mean Corpuscular Hemoglobin Concent 32 g/dL (31-37) Test 03/19/21 20:15 03/20/21 00:20 03/20/21 05:20 03/20/21 05:52 White Blood Count 18.3 x10^3/uL (4.0-11.0) 13.4 x10^3/uL (4.0-11.0) Red Blood Count 2.57 x10^6/uL (3.50-5.40) 2.51 x10^6/uL (3.50-5.40) Hemoglobin 7.4 g/dL (12.0-15.5) 7.2 g/dL (12.0-15.5) Hematocrit 23.8 % (36.0-47.0) 23.1 % (36.0-47.0) Mean Corpuscular Volume 93 fL (79-100) 92 fL (79-100) Mean Corpuscular Hemoglobin 29 pg (25-35) 29 pg (25-35) Mean Corpuscular Hemoglobin Concent 31 g/dL (31-37) 31 g/dL (31-37) Red Cell Distribution Width 23.9 % (11.5-14.5) 23.8 % (11.5-14.5) Platelet Count 94 x10^3/uL (140-400) 92 x10^3/uL (140-400) Sodium Level 135 mmol/L (136-145) 133 mmol/L (136-145) Potassium Level 3.7 mmol/L (3.5-5.1) 4.3 mmol/L (3.5-5.1) Chloride Level 98 mmol/L (98-107) 99 mmol/L (98-107) Carbon Dioxide Level 35 mmol/L (21-32) 34 mmol/L (21-32) Anion Gap 2 (6-14) 0 (6-14) Blood Urea Nitrogen 11 mg/dL (7-20) 7 mg/dL (7-20) Creatinine 0.6 mg/dL (0.6-1.0) 0.4 mg/dL (0.6-1.0) Estimated GFR (Cockcroft-Gault) 99.4 158.7 Glucose Level 247 mg/dL (70-99) 265 mg/dL (70-99) Calcium Level 7.9 mg/dL (8.5-10.1) 7.9 mg/dL (8.5-10.1) Phosphorus Level 2.4 mg/dL (2.6-4.7) 3.0 mg/dL (2.6-4.7) Magnesium Level 3.1 mg/dL (1.8-2.4) 3.3 mg/dL (1.8-2.4) Glucose (Fingerstick) 258 mg/dL (70-99) 221 mg/dL (70-99) Neutrophils (%) (Auto) 82 % (31-73) Lymphocytes (%) (Auto) 13 % (24-48) Monocytes (%) (Auto) 3 % (0-9) Eosinophils (%) (Auto) 1 % (0-3) Basophils (%) (Auto) 0 % (0-3) Neutrophils # (Auto) 11.1 x10^3/uL (1.8-7.7) Lymphocytes # (Auto) 1.7 x10^3/uL (1.0-4.8) Monocytes # (Auto) 0.4 x10^3/uL (0.0-1.1) Eosinophils # (Auto) 0.2 x10^3/uL (0.0-0.7) Basophils # (Auto) 0.0 x10^3/uL (0.0-0.2) BUN/Creatinine Ratio 18 (6-20) Total Bilirubin 0.4 mg/dL (0.2-1.0) Aspartate Amino Transf (AST/SGOT) 21 U/L (15-37) Alanine Aminotransferase (ALT/SGPT) 24 U/L (14-59) Alkaline Phosphatase 95 U/L (46-116) Total Protein 5.4 g/dL (6.4-8.2) Albumin 2.2 g/dL (3.4-5.0) Albumin/Globulin Ratio 0.7 (1.0-1.7) Test 03/20/21 08:35 O2 Saturation 75 % (92-99) Arterial Blood pH 7.15 (7.35-7.45) Arterial Blood pCO2 at Patient Temp 99 mmHg (35-46) Arterial Blood pO2 at Patient Temp < 42 mmHg (65-108) Arterial Blood HCO3 34 mmol/L (21-28) Arterial Blood Base Excess 4 mmol/L (-3-3) FiO2 100 Objective: Assessment: Severe sepsis requiring pressors Blood culture and urine culture negative here so far. 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 And high serum cryptococcal antigen . The patient was started on AmBisome and flucytosine on 03/09/2021 for possible meningoencephalitis with cryptococcal antigen greater than 1:512.. Repeat cryptococcal titer remained unchanged. Currently AmBisome and flucytosine is on hold due to CHLOÉ. Fluconazole is not an option due to drug drug interactions with amiodarone. 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 Patient's did not consent for LP and has refused at [facility] and here at [facility]. Neurology service is on the case 3. Acute kidney injury, worsening, appears multifactorial including AmBisome and vasopressor need including sepsis. Started on CRRT 03/18/2021 with creat inine down to 0.8 today 4. Wounds over both buttocks and left plantar, chronic. Possible HSV per wound team unable to assess wound today pt is on CRRT 5. Status post tracheostomy with difficulty weaning off vent, status post BAL 02/21 with cultures positive for Strep group B and Cryptococcus neoformans.Possible intermitent leak 6. Worsening respiratory failure, 7. Leukocytosis in part reactive from steroids. C. diff negative on 02/28/2021. 8. UTI. Urine cultures negative here so far .history of Klebsiella in urine 02/20, no pyuria, likely colonization. 9. History of trach cultures positive for Corine dubliniensis at outside hospital. 10. History of Corine in urine at outside hospital. 11. History of methicillin-resistant Staphylococcus aureus in the sputum at outside hospital. 12. COVID-19 viral pneumonia with acute hypoxic respiratory failure, requiring tracheostomy 13. Oropharyngeal dysphagia, maintained on tube feedings. 14. Paroxysmal atrial fibrillation with rapid ventricular response, on amiodarone. 15. Morbid obesity. 16. History of gastrointestinal bleed. 17. Critical illness myopathy. 18. Gastroesophageal reflux disease. 19. Asthma. 20. Obstructive sleep apnea. 21. Status post left knee arthroplasty. 22. Osteoarthritis. 23. Hypothyroidism. 24. History of chronic pain. 25. Hyperlipidemia. 26. Otomastoiditis and Ear fliud collection on CT head 27. Anemia s/p one unit PRBC 03/18 Plan: Plan of Care Patient is in multiorgan failure. 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 Limited choices for cryptococcal infection 1. AmBisome and flucytosine were on hold to CHLOÉ. Initial plan was for 2 weeks for induction therapy from 03/09/2021. s/p 1 dose of AmBisome 3 mg/kg on 03/19. Patient is on CRRT will repeat today , will give NACL 1 Liter, d/w DR Almaraz, Pharmacy will try to acquire AmBisome from other hospital. Further administration of AmBisome will depend on renal functions. Flucytosine renal dosing only today Fluconazole or voriconazole is not an option due to drug drug interactions with amiodarone. Another option for consideration would be salvage therapy with Cresemba. Latter is not FDA approved. But has been given for certain cases per case reports. I have discussed with pharmacy today. They will try to acquire Cresemba from outside facility.. Pharmacy to look for drug drug interactions with amiodarone and would need decreasing dose of amiodarone. 2. Monitor labs and cultures 3. Follow blood cultures from 03/15 and 03/16 neg so far. Urine cultures remain negative so far 4. Continue empiric Merrem and linezolid . Valtrex 500 mg p.o. daily for 5 days due to possible HSV. 5. Check C. difficile if patient has diarrhea 6. Neurology recommendations noted. Patient's had refused to consent for LP. Neurology is not recommending LP at this time either. further Brain imaging per neurology 8. Renal team and pulmonary is following. 9. Offload if able which is difficult at this time due to worsening respiratory status. Continue local wound care as directed. 10. Critically ill. 11. Prognosis is very poor. Per d/w RN yesterday family is leaning towards palliative care/comfort measures I have discussed with patient's RN today. ELLIOTT KELLY MD Mar 20, 2021 10:48
--- NOTE | 2021-03-20 11:41 | PDOC ---
[employer] PROGRESS NOTE Date of Service DOS: DATE: 03/20/21 TIME: 11:40 Chief Complaint Chief Complaint Acute on chronic combined hypoxic and hypercapnic respiratory failure - long difficult vent wean after COVID 19 with current cryptoccocal infection. Wean vent as tolerated. Consult pulm for assistance. Vent AC mode 20/550/14/100% with saturations 94%. Acute encephalopathy - likely hypoxic encephalopathy vs uremic and septic e ncephalopathy. Monitor mental status, wean sedation as tolerated. She has been on precedex for over a month Acute renal failure - multifactorial vasomotor nephropathy from sepsis, multiorgan system failure, hypoxia and possible ATN/AIN from nephrotoxic med ications necessary for cryptococcal infection treatment. Consult nephrology Septic shock - due to above infection. Cont levophed and IVF support Severe protein calorie malnutrition - due to multiorgan system failure, sepsis Cryptococcal pneumonia - ID consulted for treatment H/o COVID 19 - s/p tracheostomy and PEG placement, still dealing with multiple rehabilitation assistant complications Asthma - nebs GERD - ppi FEN - tube feeds PPX - eliquis/heparin FULL CODE Dispo - ICU. (Vitaliy) is surrogate decision-maker. History of Present Illness History of Present Illness Ms Flores is a 70yo female with PMHx asthma, GERD, HLD, hypothyroidism, chronic pain, JOHAN on CPAP who comes to ED from [facility] for assessment of worsening renal failure. She has been treated at [facility] on a month long vent wean after a complicated COVID-19 hospital stay at [facility] where she underwent tracheostomy and PEG placement in December 2020. As of ~03/06/2021 last week per patient had been weaning down vent support PEEP of 5 and 55 to 60% FiO2. Because of her failure to progress she underwent bronchoscopy which, per physician at [facility] was positive for cryptococcus and patient was started on amphotericin B flucytosine Zosyn and Z yvox. This past Tuesday 03/13 some time around or after 7:00 AM patient had a significant worsening of her oxygen status and per since then she has been relatively unresponsive. Progressively increased ventilatory support and pressor support with Levophed and progressively worsening multiorgan system failure with elevated creatinine has been transferred out of [facility] for ass essment for renal failure consideration of renal replacement therapy WBC 18.4, Hb 7.7, platelets 147, INR 1.4, NA 133, K5.3, chloride 96, HCO3 27, BUN 82, CR 2.3, glucose 241 calcium 7.7, phosphorus 6.7, lactate 0.8 magnesium 2.1 bilirubin 0.8, AST 25 ALT 37, alkaline phosphatase 81, albumin 2, NT proBNP 7349, urinalysis with moderate leuk esterase large blood WBCs and RBCs as well as granular casts Chest radiograph with severe diffuse interstitial alveolar infiltrates and tracheostomy tube in place Vent AC mode 20/550/14/100% with saturations 94%. EKG sinus rhythm at 61 bpm, unremarkable intervals, left axis deviation, no acute ischemic findings, no ST elevation or TWI Discussed with Vitaliy bedside in ED. ED attempt transfer to [facility] no available beds Admitted to ICU on levophed GTT. 03/17: Afebrile, on vent with FiO2 100%, PEEP 14. Will follow nephrology rupali mmendations. Continue fluconazole at this time; further antibiotics/antifungals, perID. No need for urgent dialysis at this time, potassium 5.0. Continue treatment for cryptococcus pneumonia. refusing lumbar puncture. 03/18: Afebrile, on vent with FiO2 100%, PEEP 14. Discussed with Dr. Johnson, concerned that trach cuff may need to be replaced. Will place consult to gener al surgery. Continue treatment with empiric meropenem, linezolid, and micafungin, per ID. No lumbar puncture planned at this time. No need for urgent hemodialysis. Critical care time 30 minutes spent reviewing charts, reviewing labs and imaging, discussion with Dr. Johnson and RN. 03/19: Afebrile, on vent with FiO2 100%, PEEP 14. General surgery has been consulted for concerns of trach leak; await further recommendations. Had ultrasound-guided placement of right internal jugular temporary dialysis ca theter on 03/17, currently undergoing hemodialysis in ICU. Continue to hold AmBisome and flucytosine with CHLOÉ; continue meropenem, linezolid, and micafungin, per ID. Valtrex has been added for concerns of herpes. Critical care time 30 minutes spent reviewing charts, reviewing labs, reviewing imaging, discussion with RN. 03/20 Patient evaluated examined at bedside. She remains intubated not responsive. Family member still refusing lumbar puncture. On CRRT. Continues to require blood pressure poor on phenylephrine. Continue antimicrobials. 30 minutes critical care time spent reviewing charts, reviewing labs, reviewing imaging, and discussion with RN Vitals/I&O Vitals/I&O: Vital Signs Date Time Temp Pulse Resp B/P (MAP) Pulse Ox O2 Delivery O2 Flow Rate FiO2 03/20/21 11:00 104 36 97/59 91 Ventilator 03/20/21 08:00 97.4 97.4 03/19/21 20:32 15.0 I & O 03/19/21 03/19/21 03/20/21 15:00 23:00 07:00 Intake Total 1320 ml 1836.7 ml 2341.0 ml Output Total 0 ml 25 ml 4516 ml Balance 1320 ml 1811.7 ml -2175.0 ml Physical Exam Physical Exam: GENERAL: Patient on ventilator, nonresponsive, ill-appearing, on ventilation. On Emma hugger HEENT: Normocephalic, atraumatic. Pupils equal, small anicteric conjunctivae. NECK: Tracheostomy/vent. HEART: Tachycardia LUNGS: Decreased breath sound at bases. ABDOMEN: Obese, soft. Bowel sounds present. G-tube intact. GENITOURINARY: Setphens placed 03/15/2021 EXTREMITIES: Trace edema in the lower extremity, no cyanosis. DERMATOLOGIC: No generalized rash. Blister, left plantar foot. . Bilateral superficial ulceration on both buttock cheeks, Could not examine,See wound care notes and pictures for full details, I could not see any vesicles. NEUROLOGIC: Nonresponsive. Right upper extremity midline clean. General: No acute distress Heart: Normal S1, Normal S2 Lungs: Other (Decreased air entry throughout) Abdomen: Soft, Other (oeg) Extremities: No edema, Normal pulses Skin: No significant lesion Labs Labs: Laboratory Tests Test 03/19/21 12:50 03/19/21 15:00 03/19/21 17:19 03/19/21 20:15 Sodium Level 134 mmol/L (136-145) 135 mmol/L (136-145) Potassium Level 4.2 mmol/L (3.5-5.1) 3.7 mmol/L (3.5-5.1) Chloride Level 98 mmol/L (98-107) 98 mmol/L (98-107) Carbon Dioxide Level 33 mmol/L (21-32) 35 mmol/L (21-32) Anion Gap 3 (6-14) 2 (6-14) Blood Urea Nitrogen 15 mg/dL (7-20) 11 mg/dL (7-20) Creatinine 0.6 mg/dL (0.6-1.0) 0.6 mg/dL (0.6-1.0) Estimated GFR (Cockcroft-Gault) 99.4 99.4 Glucose Level 278 mg/dL (70-99) 247 mg/dL (70-99) Calcium Level 7.4 mg/dL (8.5-10.1) 7.9 mg/dL (8.5-10.1) Phosphorus Level 3.9 mg/dL (2.6-4.7) 2.4 mg/dL (2.6-4.7) Magnesium Level 3.0 mg/dL (1.8-2.4) 3.1 mg/dL (1.8-2.4) Total Bilirubin 0.3 mg/dL (0.2-1.0) Direct Bilirubin 0.1 mg/dL (0.0-0.2) Aspartate Amino Transf (AST/SGOT) 20 U/L (15-37) Alanine Aminotransferase (ALT/SGPT) 28 U/L (14-59) Alkaline Phosphatase 92 U/L (46-116) Ammonia 70 mcmol/L (11-34) Total Protein 5.1 g/dL (6.4-8.2) Albumin 2.5 g/dL (3.4-5.0) Hemoglobin 7.7 g/dL (12.0-15.5) 7.4 g/dL (12.0-15.5) Hematocrit 24.0 % (36.0-47.0) 23.8 % (36.0-47.0) Mean Corpuscular Hemoglobin Concent 32 g/dL (31-37) 31 g/dL (31-37) Glucose (Fingerstick) 277 mg/dL (70-99) White Blood Count 18.3 x10^3/uL (4.0-11.0) Red Blood Count 2.57 x10^6/uL (3.50-5.40) Mean Corpuscular Volume 93 fL (79-100) Mean Corpuscular Hemoglobin 29 pg (25-35) Red Cell Distribution Width 23.9 % (11.5-14.5) Platelet Count 94 x10^3/uL (140-400) Test 03/20/21 00:20 03/20/21 05:20 03/20/21 05:52 03/20/21 08:35 Glucose (Fingerstick) 258 mg/dL (70-99) 221 mg/dL (70-99) White Blood Count 13.4 x10^3/uL (4.0-11.0) Red Blood Count 2.51 x10^6/uL (3.50-5.40) Hemoglobin 7.2 g/dL (12.0-15.5) Hematocrit 23.1 % (36.0-47.0) Mean Corpuscular Volume 92 fL (79-100) Mean Corpuscular Hemoglobin 29 pg (25-35) Mean Corpuscular Hemoglobin Concent 31 g/dL (31-37) Red Cell Distribution Width 23.8 % (11.5-14.5) Platelet Count 92 x10^3/uL (140-400) Neutrophils (%) (Auto) 82 % (31-73) Lymphocytes (%) (Auto) 13 % (24-48) Monocytes (%) (Auto) 3 % (0-9) Eosinophils (%) (Auto) 1 % (0-3) Basophils (%) (Auto) 0 % (0-3) Neutrophils # (Auto) 11.1 x10^3/uL (1.8-7.7) Lymphocytes # (Auto) 1.7 x10^3/uL (1.0-4.8) Monocytes # (Auto) 0.4 x10^3/uL (0.0-1.1) Eosinophils # (Auto) 0.2 x10^3/uL (0.0-0.7) Basophils # (Auto) 0.0 x10^3/uL (0.0-0.2) Sodium Level 133 mmol/L (136-145) Potassium Level 4.3 mmol/L (3.5-5.1) Chloride Level 99 mmol/L (98-107) Carbon Dioxide Level 34 mmol/L (21-32) Anion Gap 0 (6-14) Blood Urea Nitrogen 7 mg/dL (7-20) Creatinine 0.4 mg/dL (0.6-1.0) Estimated GFR (Cockcroft-Gault) 158.7 BUN/Creatinine Ratio 18 (6-20) Glucose Level 265 mg/dL (70-99) Calcium Level 7.9 mg/dL (8.5-10.1) Phosphorus Level 3.0 mg/dL (2.6-4.7) Magnesium Level 3.3 mg/dL (1.8-2.4) Total Bilirubin 0.4 mg/dL (0.2-1.0) Aspartate Amino Transf (AST/SGOT) 21 U/L (15-37) Alanine Aminotransferase (ALT/SGPT) 24 U/L (14-59) Alkaline Phosphatase 95 U/L (46-116) Total Protein 5.4 g/dL (6.4-8.2) Albumin 2.2 g/dL (3.4-5.0) Albumin/Globulin Ratio 0.7 (1.0-1.7) O2 Saturation 75 % (92-99) Arterial Blood pH 7.15 (7.35-7.45) Arterial Blood pCO2 at Patient Temp 99 mmHg (35-46) Arterial Blood pO2 at Patient Temp < 42 mmHg (65-108) Arterial Blood HCO3 34 mmol/L (21-28) Arterial Blood Base Excess 4 mmol/L (-3-3) FiO2 100 Assessment and Plan Assessmemt and Plan Problems Medical Problems: (1) Anemia Status: Acute (2) Chronic respiratory failure Status: Acute (3) CKD (chronic kidney disease) Status: Acute (4) History of COVID-19 Status: Acute (5) PNA (pneumonia) Status: Acute Comment Review of Relevant I have reviewed the following items candice (where applicable) has been applied. Medications: Current Medications Medications (Trade) Dose Ordered Sig/Franklin Route PRN Reason Start Time Stop Time Status Last Admin Dose Admin Amphotericin B 300 mg/Dextrose 250 ml @ 125 mls/hr 1X ONCE IV 03/19/21 14:00 03/19/21 15:59 DC 03/19/21 14:09 Potassium Phosphate 13.6 mmol/Sodium Chloride 104.5333 ml @ 52.267 m... Q2H IV 03/19/21 22:30 03/20/21 04:29 DC 03/20/21 02:19 Justifications for Admission Other Justification REBECA WELDON MD Mar 20, 2021 11:41
[2021-03-20] MEDS ORDERED: FLUCYTOSINE 500 MG PO SCH (12:00)
[2021-03-20] MEDS ORDERED: AMPHOTERICIN B LIPOSOME IV ONE (12:00)
[2021-03-20] MEDS ORDERED: DEXTROSE 5% IV ONE (12:00)
[2021-03-20 12:25] LABS: HEMATOCRIT 21.7 % (36.0-47.0); RED BLOOD COUNT 2.35 x10^6/uL (3.50-5.40); WHITE BLOOD COUNT 9.6 x10^3/uL (4.0-11.0)
[2021-03-20 12:28] LABS: HEMOGLOBIN 6.9 g/dL (12.0-15.5)
[2021-03-20 12:40] LABS: CALCIUM 7.8 mg/dL (8.5-10.1); CREATININE 0.4 mg/dL (0.6-1.0); GFR 158.7; POTASSIUM 3.9 mmol/L (3.5-5.1)
--- NOTE | 2021-03-20 12:58 | PDOC ---
Renal-Progress Notes Subjective Notes Notes INTUBATED History of Present Illness Hx of present illness REMAINS CRITICALLY ILL Vitals Vitals Vital Signs Date Time Temp Pulse Resp B/P (MAP) Pulse Ox O2 Delivery O2 Flow Rate FiO2 03/20/21 11:59 90 Ventilator 03/20/21 11:00 104 36 97/59 03/20/21 08:00 97.4 97.4 03/19/21 20:32 15.0 Weight Weight [ ] I.O. Intake and Output Intake and Output 03/20/21 07:00 Intake Total 5497.7 ml Output Total 4541 ml Balance 956.7 ml IV Total 3697.7 ml Tube Feeding 1090 ml Blood Product IV Normal Saline Flush 680 ml Other 30 ml Output Urine Total 30 ml Gastric Drainage Total 4511 ml Labs Labs Laboratory Tests Test 03/19/21 15:00 03/19/21 17:19 03/19/21 20:15 03/20/21 00:20 Hemoglobin 7.7 g/dL (12.0-15.5) 7.4 g/dL (12.0-15.5) Hematocrit 24.0 % (36.0-47.0) 23.8 % (36.0-47.0) Mean Corpuscular Hemoglobin Concent 32 g/dL (31-37) 31 g/dL (31-37) Glucose (Fingerstick) 277 mg/dL (70-99) 258 mg/dL (70-99) White Blood Count 18.3 x10^3/uL (4.0-11.0) Red Blood Count 2.57 x10^6/uL (3.50-5.40) Mean Corpuscular Volume 93 fL (79-100) Mean Corpuscular Hemoglobin 29 pg (25-35) Red Cell Distribution Width 23.9 % (11.5-14.5) Platelet Count 94 x10^3/uL (140-400) Sodium Level 135 mmol/L (136-145) Potassium Level 3.7 mmol/L (3.5-5.1) Chloride Level 98 mmol/L (98-107) Carbon Dioxide Level 35 mmol/L (21-32) Anion Gap 2 (6-14) Blood Urea Nitrogen 11 mg/dL (7-20) Creatinine 0.6 mg/dL (0.6-1.0) Estimated GFR (Cockcroft-Gault) 99.4 Glucose Level 247 mg/dL (70-99) Calcium Level 7.9 mg/dL (8.5-10.1) Phosphorus Level 2.4 mg/dL (2.6-4.7) Magnesium Level 3.1 mg/dL (1.8-2.4) Test 03/20/21 05:20 03/20/21 05:52 03/20/21 08:35 03/20/21 12:00 White Blood Count 13.4 x10^3/uL (4.0-11.0) 9.6 x10^3/uL (4.0-11.0) Red Blood Count 2.51 x10^6/uL (3.50-5.40) 2.35 x10^6/uL (3.50-5.40) Hemoglobin 7.2 g/dL (12.0-15.5) 6.9 g/dL (12.0-15.5) Hematocrit 23.1 % (36.0-47.0) 21.7 % (36.0-47.0) Mean Corpuscular Volume 92 fL (79-100) 92 fL (79-100) Mean Corpuscular Hemoglobin 29 pg (25-35) 29 pg (25-35) Mean Corpuscular Hemoglobin Concent 31 g/dL (31-37) 32 g/dL (31-37) Red Cell Distribution Width 23.8 % (11.5-14.5) 24.0 % (11.5-14.5) Platelet Count 92 x10^3/uL (140-400) 76 x10^3/uL (140-400) Neutrophils (%) (Auto) 82 % (31-73) Lymphocytes (%) (Auto) 13 % (24-48) Monocytes (%) (Auto) 3 % (0-9) Eosinophils (%) (Auto) 1 % (0-3) Basophils (%) (Auto) 0 % (0-3) Neutrophils # (Auto) 11.1 x10^3/uL (1.8-7.7) Lymphocytes # (Auto) 1.7 x10^3/uL (1.0-4.8) Monocytes # (Auto) 0.4 x10^3/uL (0.0-1.1) Eosinophils # (Auto) 0.2 x10^3/uL (0.0-0.7) Basophils # (Auto) 0.0 x10^3/uL (0.0-0.2) Sodium Level 133 mmol/L (136-145) 135 mmol/L (136-145) Potassium Level 4.3 mmol/L (3.5-5.1) 3.9 mmol/L (3.5-5.1) Chloride Level 99 mmol/L (98-107) 99 mmol/L (98-107) Carbon Dioxide Level 34 mmol/L (21-32) 34 mmol/L (21-32) Anion Gap 0 (6-14) 2 (6-14) Blood Urea Nitrogen 7 mg/dL (7-20) 5 mg/dL (7-20) Creatinine 0.4 mg/dL (0.6-1.0) 0.4 mg/dL (0.6-1.0) Estimated GFR (Cockcroft-Gault) 158.7 158.7 BUN/Creatinine Ratio 18 (6-20) Glucose Level 265 mg/dL (70-99) 276 mg/dL (70-99) Calcium Level 7.9 mg/dL (8.5-10.1) 7.8 mg/dL (8.5-10.1) Phosphorus Level 3.0 mg/dL (2.6-4.7) 2.0 mg/dL (2.6-4.7) Magnesium Level 3.3 mg/dL (1.8-2.4) 3.0 mg/dL (1.8-2.4) Total Bilirubin 0.4 mg/dL (0.2-1.0) Aspartate Amino Transf (AST/SGOT) 21 U/L (15-37) Alanine Aminotransferase (ALT/SGPT) 24 U/L (14-59) Alkaline Phosphatase 95 U/L (46-116) Total Protein 5.4 g/dL (6.4-8.2) Albumin 2.2 g/dL (3.4-5.0) Albumin/Globulin Ratio 0.7 (1.0-1.7) Glucose (Fingerstick) 221 mg/dL (70-99) O2 Saturation 75 % (92-99) Arterial Blood pH 7.15 (7.35-7.45) Arterial Blood pCO2 at Patient Temp 99 mmHg (35-46) Arterial Blood pO2 at Patient Temp < 42 mmHg (65-108) Arterial Blood HCO3 34 mmol/L (21-28) Arterial Blood Base Excess 4 mmol/L (-3-3) FiO2 100 Test 03/20/21 12:43 Glucose (Fingerstick) 278 mg/dL (70-99) Micro Micro Microbiology 03/18/21 Urine Culture - Final, Complete 03/16/21 Blood Culture - Preliminary, Resulted NO GROWTH AFTER 3 DAYS Review of Systems Constitutional: yes: unresponsive Physical Exam General Appearance: no apparent distress Skin: warm Respiratory: decreased breath sounds Heart: S1S2 Abdomen: soft, bowel sounds present, other (HYPOACTIVE) Genitourinary: bladder flat Extremities: pulses present, edema Neurology: other (SEDATED) Assessment Assessment IMP CHLOÉ-ATN ACUTE RESP FAILURE-HIGH PEEP AND FIO2 100% SEVERE HYPERCARBIA AND RESP AND MET ACIDOSIS WITH ACIDEMIA COVID 19 VIRAL PNEUMONIA CRYPTOCOCCAL PNEUMONIA STREP B PULM INFECTION SEPTIC SHOCK HYPOTENSION S/P TRACH S/P PEF ANEMIA CHRONIC AFIB PLAN PT REMAINS CRITICALLY ILL ANTIFUNGALS ANTIBIOTICS PRESSORS NUTRITION ON CRRT WITH NO PFR VERY POOR PROGNOSIS D/W PULM PT NOW DNR NOT EXPECTED TO SURVIVE WILL CONT WITH SUPPORTIVE CARE QIAN TEJADA MD Mar 20, 2021 12:58
--- NOTE | 2021-03-20 16:24 | NUR ---
SS following for discharge planning. SS reviewed pt chart and discussed with pt RN. Pt is currently on the vent at 100%. Peep of 14. Pt on IV Meropenem and IV Zyvox. CRRT. Pt on Versed, Fentanyl, Precedex, Vasopressin, and Levophed. DNR. Not stable. SS will continue to follow for discharge planning.
--- NOTE | 2021-03-20 16:56 | NUR ---
Wound/Ostomy Care Wound Type/Assessment: WC consult for buttock and foot wound. Pt has open areas to gluteal cleft that bleed and purple area on right buttock. Pt also has open blood blister to left plantar foot. Cleansed, pictured and measured wounds. Treatment Recommendations/Plan: Cleanse wounds, apply calazime and ABD to gluteal fold change BID and PRN. apply kin prep and foam to foot, change every 3 days. Education provided: pt on vent, unable to educate Offloading surface/device: ICU bed, TQ2H, float heels Recommended Referrals/Tests: na Discharge Recommendations for dressings: see above
--- NOTE | 2021-03-20 20:00 | NUR ---
CRRT: Air in line. Notified Devin from [facility] and reported he will contact [facility] to verify patient to restart CRRT. Called back and advised patient is not a restart. Will continue POC. Vitaliy, notified of patient current condition. Stated he would like to come to hospital and would make a decision to withdraw care. Will continue to monitor patient.
[2021-03-20] MEDS ORDERED: INSULIN GLARGINE SYRINGE. SQ SCH (21:00)
[2021-03-20] MEDS ORDERED: EPOETIN ALFA-EPBX for NON-DIALYSIS 20,000 UNIT/ML VIAL. SQ SCH (21:00)
[2021-03-20] MEDS: fentaNYL HIGH DOSE PCA 55 ML IV PRN (22:09)
--- NOTE | 2021-03-20 23:43 | NUR ---
Dr. Saeed notified of family wishes to withdraw care. Vasopressin and levophed discontinued. Fentanyl and precedex still infusing. Ventilator disconnected from trach. Family at bedside. Asystole on monitor. Remained unresonsive. Without chest rise. No heart tones. Pupils fixed. TOD at 2328. Confirmed by RADHA Brizuela. No belongings. Family advised [facility] home.
[2021-03-21] MEDS ORDERED: IV RINGERS,LACTATED 1000ML 1,000 ML IV SCH (06:00)
[2021-03-21] MEDS ORDERED: HYDROmorphone 2 MG/ML VIAL IVP PRN (06:00)
[2021-03-21] MEDS ORDERED: MORPHINE SULFATE 2 MG/ML INJ. IVP PRN (06:00)
[2021-03-21] MEDS ORDERED: fentaNYL PF VIAL 100 MCG/2 ML VIAL IVP PRN ×2 (06:00)
[2021-03-21] MEDS ORDERED: PROCHLORPERAZINE 10 MG/2 ML VIAL. IVP PRN (06:00)
== END 2021-03-21 00:49 | DRG 870 ==
LOC: ER 13:42 → 1 WEST ICU 17:00
PROVIDERS: ADMIT Internal Medicine; ATTEND Internal Medicine
PROC: 5A1955Z Respiratory Ventilation, Greater than 96 Consecutive Hours (ICD-10-PCS; principal; 2021-03-16)
PROC: 0BH17EZ Insertion of Endotracheal Airway into Trachea, Via Natural or Artificial Opening (ICD-10-PCS; 2021-03-16)
PROC: 02H633Z Insertion of Infusion Device into Right Atrium, Percutaneous Approach (ICD-10-PCS; 2021-03-17)
PROC: B548ZZA Ultrasonography of Superior Vena Cava, Guidance (ICD-10-PCS; 2021-03-17)
PROC: 30233N1 Transfusion of Nonautologous Red Blood Cells into Peripheral Vein, Percutaneous Approach (ICD-10-PCS; 2021-03-19)
DX: A41.9 Sepsis, unspecified organism (principal); G92.9 Unspecified toxic encephalopathy; E43 Unspecified severe protein-calorie malnutrition; J80 Acute respiratory distress syndrome; R65.21 Severe sepsis with septic shock; N17.0 Acute kidney failure with tubular necrosis; B45.0 Pulmonary cryptococcosis; D62 Acute posthemorrhagic anemia; Z68.43 Body mass index [BMI] 50.0-59.9, adult; E87.4 Mixed disorder of acid-base balance; G72.81 Critical illness myopathy; I48.20 Chronic atrial fibrillation, unspecified; J44.0 Chronic obstructive pulmonary disease with (acute) lower respiratory infection; N39.0 Urinary tract infection, site not specified; K92.2 Gastrointestinal hemorrhage, unspecified; B45.9 Cryptococcosis, unspecified; I13.10 Hypertensive heart and chronic kidney disease without heart failure, with stage 1 through stage 4 chronic kidney disease, or unspecified chronic kidney disease; D69.6 Thrombocytopenia, unspecified; E03.9 Hypothyroidism, unspecified; E11.22 Type 2 diabetes mellitus with diabetic chronic kidney disease; E66.01 Morbid (severe) obesity due to excess calories; E78.5 Hyperlipidemia, unspecified; G47.33 Obstructive sleep apnea (adult) (pediatric); I48.0 Paroxysmal atrial fibrillation; K21.9 Gastro-esophageal reflux disease without esophagitis; M19.90 Unspecified osteoarthritis, unspecified site; N18.9 Chronic kidney disease, unspecified; R13.12 Dysphagia, oropharyngeal phase; Z96.652 Presence of left artificial knee joint; G47.30 Sleep apnea, unspecified; G89.29 Other chronic pain; R79.89 Other specified abnormal findings of blood chemistry; B96.1 Klebsiella pneumoniae [K. pneumoniae] as the cause of diseases classified elsewhere; E88.09 Other disorders of plasma-protein metabolism, not elsewhere classified; Z66 Do not resuscitate; Z86.14 Personal history of Methicillin resistant Staphylococcus aureus infection; Z93.0 Tracheostomy status; Z83.3 Family history of diabetes mellitus; Z86.16 Personal history of COVID-19
CPT/HCPCS: 36415; 36430; 36556; 36600; 71045; 76770; 76937; 80048; 80053; 80076; 81001; 82140; 82550; 82805; 82962; 83605; 83735; 83880; 84100; 84300; 84550; 85007; 85014; 85018; 85025; 85027; 85610; 85730; 86317; 86706; 86850; 86900; 86901; 86920; 87040; 87086; 87340; 93005; 93306; 94002; 94003; 94640; 96365; 96375; C1892; J0289; J0610; J1644; J1815; J2020; J2185; J2248; J2250; J3010; J3475; J3480; J3490; J7060; P9016; P9045; 99285-25; G0378